=== PATIENT | female | born 2000 | race Caucasian/White ===

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

== ENCOUNTER 2020-04-01 12:42 | Emergency (ER) | payer BC ==
[~2020-04-01] VITALS: Ht 157.4 cm; Wt 123.0 kg
[~2020-04-01 12:42] MED LIST changes: +HYDR-4226 PO; -HYDR-757 PO; +TERB15CR6 TP
--- OUTSIDE RECORDS SUMMARY | 2020-04-01 12:48 | XMS REPORT ---
Author Author Lianne LANDRY S EMY Organization [facility] [address] [address] [facility] [place] Address [address] [place] [address] Care Team Providers Care Wood Lathe Operator Name Role Phone TERI ROSENDO LOFTON Unavailable [phone] PROBLEMS Type Condition ICD9-CM Code MUZ23-LV Code Onset Dates Condition S tatus SNOMED Code Problem Anxiety disorder, unspecified F41.9 Active [id number] Problem Dysthymic disorder F34.1 Active [id number] ALLERGIES No Information ENCOUNTERS Encounter Location Date Diagnosis [facility] [address] [facility] [id number] [address] [place] [address] Sep, Non-recurrent acute suppurat pasha otitis media of left ear with spontaneous rupture of tympanic membrane H66.012 [place] [id number] [place] [address] March, Dysthymic disorder F34.1 and Anxiety dis order, unspecified F41.9 [facility] [address] [facility] [id number] [address] [place] [address] Feb, [place] [id number] [place] [address] Feb, Dysthymic disorder F34.1 and Anxiety dis order, unspecified F41.9 [place] [id number] [place] [address] Feb, Dysthymic disorder F34.1 and Anxiety dis order, unspecified F41.9 [facility] [address] [facility] [place], [place] [id number] Jan, Encounter for immunization Z23 [facility] [address] [facility] [place] [id number] Jan, Skin infection L08.[address] [place] [id number] 13 Dec, 2018 Non-recurrent acute suppurative otitis m edia of right ear without spontaneous rupture of tympanic membrane H66.[address] [place] [id number] 05 Dec, 2018 Paronychia of finger of right hand L03.0 11 [facility] [place] [id number] [place] [address] 17 May, 2018 Right acute serous otitis me rohit, recurrence not specified H65.01 and Seasonal allergic conjunctivitis H10.10 [facility] [place] [id number] [place] [address] 11 May, 2018 Acute mucoid otitis media of left ear H65.[address] [place] [id number] 16 Mar, 2018 Sports physical Z02.5 ; Exercise alcohol and drug counselor ing Z71.89 and Dietary counseling Z71.[address] [place] [id number] Jan, Encounter for immunization Z23 [address] [place] [id number] 15 Dec, 2017 Sprain of calcaneofibular ligament of le ft ankle, initial encounter S93.412A [address] [place] [id number] Jul, Encounter for immunization Z23 [address] [place] [id number] March, Sports physical Z02.5 ; Exercise alcohol and drug counselor ing Z71.89 and Dietary counseling Z71.3 [facility] [address] [id number] [address] [place] [address] 14 Jan, 2017 Body aches R52 and Influenza A J10.[address] [place] [id number] 10 Sep, 2016 Dental examination Z01.20 [facility] [address] [facility] [place] [id number] 08 Sep, 2016 Dental examination Z01.20 [facility] [place] [address] [facility] [place] [id number] 18 Mar, 2016 Sports physical Z02.5 ; Exercise alcohol and drug counselor ing Z71.89 ; Dietary counseling Z71.3 and Obesity due to excess calories, unspecified obesity severity E66.09 [facility] [address] [facility] [place] [id number] 06 Feb, 2016 Encounter for immunization Z23 [address] [address] 09 Jan, 2016 Pain in right knee M25.[address] [address] Jan, 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.[address] [address] 08 Dec, 2015 Weight gain, abnormal R63.[address] [address] 05 Dec, 2015 Migraine with aura and without status mi grainosus, not intractable G43.109 ; Acute upper respiratory infection, unspecified J06.9 ; Other viral agents as the cause of diseases classified elsewhere B97.89 ; Pain in right knee M25.561 ; Obstructive sleep apnea G47.33 and Weight gain, abnormal R63.[address] [address] Sep, Encounter for immunization Z23 [address] [address] Sep, Dysthymic disorder F34.1 and Anxiety dis order, unspecified F41.[address] [address] Sep, Anxiety disorder, unspecified F41.9 and Major depression single episode, 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 [facility] [address] [facility] [place] [id number] Sep, Dental examination Z01.20 [place] [address] [address] Aug, Dysthymic disorder F34.1 and Anxiety dis order, unspecified F41.9 [place] [address] [address] Jul, Dysthymic disorder 300.4 and Anxiety sta te, unspecified 300.[address] [address] Jun, Anxiety state, unspecified 300.00 and De pression, major, recurrent, 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.[address] [address] Jun, Dysthymic disorder 300.4 and Anxiety sta te, unspecified 300.00 [place] [address] [address] May, Anxiety state, unspecified 300.00 and De pression, major, recurrent, 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.35 [place] [address] [address] Apr, Dysthymic disorder 300.4 and Anxiety dis order, unspecified 300.[address] [address] March, Anxiety state, unspecified 300.00 and Mo derate recurrent major depression 296.32 [facility] [place] [address] [facility] [place] [id number] March, Shortness of breath 786.05 [facility] [place] [id number] [place] [id number] March, Routine sports physical exam V70.3 ; Exe rcise counseling V65.41 ; Dietary counseling V65.3 and Shortness of breath 786.05 [facility] [id number] [place] [address] March, Dysthymic disorder 300.4 and Anxiety dis order 300.00 [facility] [id number] [place] [address] Feb, [facility] [id number] [place] [address] Feb, [facility] [id number] [place] [address] Jan, [facility] [id number] [place] [address] Jan, [facility] [id number] [place] [address] Dec, [facility] [id number] [place] [address] Dec, [facility] [id number] [place] [address] Dec, [facility] [id number] [place] [address] Dec, [facility] [id number] [place] [address] Nov, [facility] [id number] [place] [address] Nov, [facility] [id number] [place] [address] Nov, [facility] [id number] [place] [address] Nov, [facility] [id number] [place] [address] Sep, [facility] [id number] [place] [address] Sep, [facility] [id number] [place] [address] Oct, [facility] [id number] [place] [address] Oct, [facility] [id number] [place] [address] Oct, [facility] [id number] [place] [address] Oct, [facility] [id number] [place] [address] Sep, [facility] [id number] [place] [address] Sep, [facility] [address] [address] Sep, [facility] [id number] [place] [address] Sep, [facility] [address] [address] Sep, [facility] [id number] [place] [address] Aug, [facility] [address] [address] Aug, [facility] [id number] [place] [address] Jul, [facility] [id number] [place] [address] Jun, [facility] [id number] [place] [address] March, [facility] [id number] [place] [address] Feb, IMMUNIZATIONS Vaccine Route Administration Date Status PRIVATE EMMANUEL (MEN B) IM Intramuscular February 23, 2019 Adminis tered SOCIAL HISTORY Never Assessed REASON FOR VISIT Emmanuel #2 PLAN OF CARE VITAL SIGNS MEDICATIONS No Known Medications RESULTS No Results PROCEDURES Procedure Date Ordered Result Body Site SINGLE IMMUNIZATION ADMIN February 23, 2019 PRIVATE EMMANUEL (MEN B) February 23, 2019 INSTRUCTIONS MEDICATIONS ADMINISTERED No Known Medications MEDICAL (GENERAL) HISTORY Type Description Date Medical History obesity Medical History fx right tib/fib 2016 Medical History endometriosis Medical History PCOS (Polycystic Ovary Syndrome) Surgical History bladder stretched 2010 Surgical History T & A 2008
--- OUTSIDE RECORDS SUMMARY | 2020-04-01 12:48 | XMS REPORT ---
Author Author Lianne CHAVEZ [facility] Address [address] [place] [address] Care Team Providers Care Decision Support Analyst Name Role Phone SINGH CHAVEZ Unavailable PROBLEMS Type Condition ICD9-CM Code WVT10-AM Code Onset Dates Condition S tatus SNOMED Code Problem Dysthymic disorder F34.1 Active 7 9451209 Problem Missed period N92.6 Active 262814 00 Problem Anxiety disorder, unspecified F41.9 Active 256091335 ALLERGIES No Information ENCOUNTERS Encounter Location Date Diagnosis [facility] [place] [id number] [place] [id number] [place] [address] Jan, Superficial chemical burn of scalp, initial encounter T20.55XA [facility] [address] [place] [id number] [place] [address] Jan, Missed period N92.6 and Acut e otitis externa of right ear, unspecified type H60.501 [place] [address] [place] [id number] [place] [address] Sep, Non-recurrent acute suppurat pasha otitis media of left ear with spontaneous rupture of tympanic membrane H66.012 [facility] [address] [place] [id number] [place] [address] March, Dysthymic disorder F34.1 and Anxiety disorder, unspecified F41.9 [facility] [address] [address] Feb, [facility] [address] [place] [id number] [place] [address] Feb, Dysthymic disorder F34.1 and Anxiety disorder, unspecified F41.9 [place] [address] [place] [address] [address] Feb, Dysthymic disorder F34.1 and Anxiety disorder, unspecified F41.9 [facility] [address] [id number] Jan, Encounter for immunization Z 23 [facility] [address] [id number] Jan, Skin infection L08.9 [facility] [address] [id number] 13 Dec, 2018 Non-recurrent acute suppurat pasha otitis media of right ear without spontaneous rupture of tympanic membrane H66.001 [place] [address] [id number] 05 Dec, 2018 Paronychia of finger of righ t hand L03.011 [facility] WALK IN [facility] [address] [address] 17 May, 2018 Right acute serous otitis me rohit, recurrence not specified H65.01 and Seasonal allergic conjunctivitis H10.10 [facility]ALK [facility] [address] [address] 11 May, 2018 Acute mucoid otitis media of left ear H65.112 [place] [address] [id number] March, Sports physical Z02.5 ; Exer cise counseling Z71.89 and Dietary counseling Z71.3 [place] [address] [id number] Jan, Encounter for immunization Z 23 [facility] [address] [id number] 15 Dec, 2017 Sprain of calcaneofibular li gament of left ankle, initial encounter S93.412A [place] [address] [id number] Jul, Encounter for immunization Z 23 [facility] [id number] [place] [address] [id number] 10 Mar, 2017 Sports physical Z02.5 ; Exer cise counseling Z71.89 and Dietary counseling Z71.3 [facility] [address] [place] [id number] [address] [place] [id number] 14 Jan, 2017 Body aches R52 and Influenza A J10.[address] [place] [address] [id number] [id number] 10 Sep, 2016 Dental examination Z01.20 [facility] [address] [id number] [address] [place] [address] [id number] 08 Sep, 2016 Dental examination Z01.20 [facility] [address] [place] [id number] [place] [address] [id number] 18 Mar, 2016 Sports physical Z02.5 ; Exer cise counseling Z71.89 ; Dietary counseling Z71.3 and Obesity due to excess calories, unspecified obesity severity E66.09 [facility] [address] [place] [id number] [place] [address] [id number] Feb, Encounter for immunization Z 23 [facility] [address] [address] Jan, Pain in right knee M25.561 [place] [address] [address] Jan, 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 [facility] [address] [place] [id number] [place] [id number] 08 Dec, 2015 Weight gain, abnormal R63.5 [facility] [address] [address] 05 Dec, 2015 Migraine with aura and witho ut status migrainosus, not intractable G43.109 ; Acute upper respiratory infection, unspecified J06.9 ; Other viral agents as the cause of diseases classified elsewhere B97.89 ; Pain in right knee M25.561 ; Obstructive sleep apnea G47.33 and Weight gain, abnormal R63.5 [facility] [address] [place] [id number] [address] [place] [id number] 24 Sep, 2015 Encounter for immunization Z 23 [facility] [address] [facility] [id number] [address] [place] [address] Sep, Dysthymic disorder F34.1 and Anxiety disorder, unspecified F41.9 [place] [address] [place] [id number] [address] [place] [address] Sep, Anxiety disorder, unspecifie d F41.9 and Major depression single episode, 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 [facility] [id number] [place] [address] [id number] Sep, Dental examination Z01.20 [place] [address] [place] [id number] [address] [place] [address] Aug, Dysthymic disorder F34.1 and Anxiety disorder, unspecified F41.9 [place] [address] [place] [address] Jul, Dysthymic disorder 300.4 and Anxiety state, unspecified 300.00 [place] [address] [place] [id number] [address] [place] [address] Jun, Anxiety state, unspecified 3 00.00 and Depression, major, recurrent, 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.35 [place] [address] [place] [id number] [address] [place] [address] Jun, Dysthymic disorder 300.4 and Anxiety state, unspecified 300.00 [facility] [address] [place] [id number] [address] [place] [address] May, Anxiety state, unspecified 3 00.00 and Depression, major, recurrent, 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.35 [facility] [address] [place] [id number] [address] [place] [address] Apr, Dysthymic disorder 300.4 and Anxiety disorder, unspecified 300.00 [facility] [address] [place] [id number] [address] [place] [address] March, Anxiety state, unspecified 3 00.00 and Moderate recurrent major depression 296.32 [facility] [address] [id number] [place] [address] [id number] March, Shortness of breath 786.05 [facility] [address] [id number] [place] [address] [id number] March, Routine sports physical exam V70.3 ; Exercise counseling V65.41 ; Dietary counseling V65.3 and Shortness of breath 786.05 [facility] [address] [id number] [address] [place] [address] March, Dysthymic disorder 300.4 and Anxiety disorder 300.00 [facility] [address] [id number] [address] [place] [address] Feb, [facility] [address] [facility] [id number] [address] [place] [id number] Feb, [facility] [address] [id number] [address] [place] [address] Jan, [facility] [address] [id number] [address] [place] [address] Jan, [facility] [address] [facility] [id number] [address] [place] [address] Dec, [facility] [address] [facility] [id number] [address] [place] [address] Dec, [facility] [address] [facility] [id number] [address] [place] [phone] Dec, [facility] [address] [id number] [address] [place] [phone] Dec, [facility] [address] [facility] [id number] [address] [place] [address] Nov, [facility] [address] [facility] [id number] [address] [place] [phone] Nov, [facility] [address] [id number] [address] [place] [address], [place] [address] Nov, [facility] [address] [id number] [address] [place] [address], [place] [address] Nov, [facility] [address] [id number] [address] [place] [address], [place] [address] Sep, [facility] [address] [id number] [address] [place] [address], [place] [address] Sep, [facility] [address] [id number] [address] [place] [address], [place] [address] Oct, [facility] [address] [id number] [address] [place] [address], [place] [address] Oct, [facility] [address] [id number] [address] [place] [address], [place] [address] Oct, [facility] [address] [id number] [address] [place] [address], [place] [address] Oct, [facility] [address] [id number] [address] [place] [address], [place] [address] Sep, [facility] [address] [id number] [address] [place] [address], [place] [address] 18 Sep, 2013 [facility] [address] [id number] [address] [place] [address], [place] [address] 16 Sep, 2013 [facility] [address] [id number] [address] [place] [phone] 15 Sep, 2013 [facility] [address] [id number] [address] [place] [address], [place] [address] 15 Sep, 2013 [facility] [address] [id number] [address] [place] [address], [place] [address] Aug, [facility] [address] [id number] [address] [place] [address], [place] [address] Aug, [facility] [address] [id number] [address] [place] [address] Jul, [facility] [address] [facility] [id number] [address] [place] [phone] Jun, [facility] [address] [facility] [id number] [address] [place] [address] March, [facility] [address] [facility] [id number] [address] [place] [address] Feb, IMMUNIZATIONS No Known Immunizations SOCIAL HISTORY Never Assessed REASON FOR VISIT PLAN OF CARE VITAL SIGNS MEDICATIONS Unknown Medications RESULTS No Results PROCEDURES Procedure Date Ordered Result Body Site PSYTX PT&/FAMILY 45 MINUTES Jan 10, 2015 INSTRUCTIONS MEDICATIONS ADMINISTERED No Known Medications MEDICAL (GENERAL) HISTORY Type Description Date Medical History obesity Medical History fx right tib/fib 2016 Medical History endometriosis Medical History PCOS (Polycystic Ovary Syndrome) Surgical History bladder stretched 2010 Surgical History T & A 2008
--- OUTSIDE RECORDS SUMMARY | 2020-04-01 12:48 | XMS REPORT ---
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 Role Phone Migration, Doctor Unavailable Unavailable PROBLEMS Type Condition ICD9-CM Code GIQ94-YC Code Onset Dates Condition S tatus SNOMED Code Problem Dysthymic disorder F34.1 Active 7 8849878 Problem Missed period N92.6 Active 754420 00 Problem Anxiety disorder, unspecified F41.9 Active 342879565 ALLERGIES No Information ENCOUNTERS Encounter Location Date Diagnosis [facility] [address] [address] Jan, Superficial chemical burn of scalp, initial encounter T20.55XA [facility] IN [facility] [address] [place] [id number] [place] [address] Jan, Missed period N92.6 and Acut e otitis externa of right ear, unspecified type H60.501 [facility] [address] [address] Sep, Non-recurrent acute suppurat pasha otitis media of left ear with spontaneous rupture of tympanic membrane H66.012 [place] [address] [place] [id number] [place] [address] March, Dysthymic disorder F34.1 and Anxiety disorder, unspecified F41.9 [facility] IN [facility] [address] [place] [id number] [place] [address] Feb, [facility] [address] [address] Feb, Dysthymic disorder F34.1 and Anxiety disorder, unspecified F41.9 [facility] [address] [place] [id number] [place] [address] Feb, Dysthymic disorder F34.1 and Anxiety disorder, unspecified F41.9 [facility] [address] [facility] [id number] [place] [address] [id number] Jan, Encounter for immunization Z 23 [facility] [address] [facility] [id number] [place] [address] [id number] Jan, Skin infection L08.9 [facility] [address] [facility] [id number] [place] [address] [id number] 13 Dec, 2018 Non-recurrent acute suppurat pasha otitis media of right ear without spontaneous rupture of tympanic membrane H66.001 [facility] [address] [facility] [id number] [place] [address] [id number] 05 Dec, 2018 Paronychia of finger of righ t hand L03.011 [facility] [address] [facility] [id number] [place] [address] 17 May, 2018 Right acute serous otitis me rohit, recurrence not specified H65.01 and Seasonal allergic conjunctivitis H10.10 [facility] [address] [facility] [id number] [place] [address] 11 May, 2018 Acute mucoid otitis media of left ear H65.112 [facility] [address] [place] [id number] [place] [address] [id number] 16 Mar, 2018 Sports physical Z02.5 ; Exer cise counseling Z71.89 and Dietary counseling Z71.3 [facility] [address] [place] [id number] [place] [address] [id number] Jan, Encounter for immunization Z 23 [facility] [place] [facility] [address] [facility] [id number] [place] [address] [id number] 15 Dec, 2017 Sprain of calcaneofibular li gament of left ankle, initial encounter S93.412A [facility] [place] [facility] [address] [place] [id number] [place] [address] [id number] 06 Jul, 2017 Encounter for immunization Z 23 [facility] [address] [facility] [id number] [place] [address] [id number] March, Sports physical Z02.5 ; Exer cise counseling Z71.89 and Dietary counseling Z71.3 [facility] [address] [facility] [id number] [address] [place] [id number] 14 Jan, 2017 Body aches R52 and Influenza A J10.1 [facility] [place] [address] [id number] [id number] 10 Sep, 2016 Dental examination Z01.20 [facility] [address] [id number] [place] [id number] 08 Sep, 2016 Dental examination Z01.20 [facility] [address] [facility] [id number] [place] [id number] 18 Mar, 2016 Sports physical Z02.5 ; Exer cise counseling Z71.89 ; Dietary counseling Z71.3 and Obesity due to excess calories, unspecified obesity severity E66.09 [facility] [address] [place] [id number] [place] [address] [id number] Feb, Encounter for immunization Z 23 [facility] [address] [place] [id number] [place] [address] 09 Jan, 2016 Pain in right knee M25.561 [place] [address] [address] 03 Jan, 2016 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 [facility] [address] [place] [id number] [place] [address] 08 Dec, 2015 Weight gain, abnormal R63.5 [facility] [address] [place] [id number] [place] [address] 05 Dec, 2015 Migraine with aura and witho ut status migrainosus, not intractable G43.109 ; Acute upper respiratory infection, unspecified J06.9 ; Other viral agents as the cause of diseases classified elsewhere B97.89 ; Pain in right knee M25.561 ; Obstructive sleep apnea G47.33 and Weight gain, abnormal R63.5 [facility] [address] [place] [address] Sep, Encounter for immunization Z 23 [facility] [address] [facility] [id number] [address] [place] [id number] 18 Sep, 2015 Dysthymic disorder F34.1 and Anxiety disorder, unspecified F41.9 [facility] [address] [facility] [id number] [address] [place] [id number] Sep, Anxiety disorder, unspecifie d F41.9 and Major depression single episode, 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 [facility] [address] [place] [id number] [address] [place] [address] [id number] Sep, Dental examination Z01.20 [facility] [address] [place] [id number] [address] [place] [address] Aug, Dysthymic disorder F34.1 and Anxiety disorder, unspecified F41.9 [facility] [address] [place] [id number] [address] [place] [id number] Jul, Dysthymic disorder 300.4 and Anxiety state, unspecified 300.00 [facility] [address] [place] [id number] [address] [place] [id number] Jun, Anxiety state, unspecified 3 00.00 and Depression, major, recurrent, 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.35 [facility] [address] [place] [id number] [address] [place] [address] Jun, Dysthymic disorder 300.4 and Anxiety state, unspecified 300.00 [facility] [address] [place] [id number] [address] [place] [id number] May, Anxiety state, unspecified 3 00.00 and Depression, major, recurrent, 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.35 [facility] [address] [place] [id number] [address] [place] [address] Apr, Dysthymic disorder 300.4 and Anxiety disorder, unspecified 300.00 [facility] [address] [place] [id number] [address] [place] [address] March, Anxiety state, unspecified 3 00.00 and Moderate recurrent major depression 296.32 [facility] [address] [facility] [id number] [place] [address] [id number] March, Shortness of breath 786.05 [facility] [address] [facility] [id number] [place] [address] [id number] March, Routine sports physical exam V70.3 ; Exercise counseling V65.41 ; Dietary counseling V65.3 and Shortness of breath 786.05 [facility] [address] [id number] [address] [place] [id number] March, Dysthymic disorder 300.4 and Anxiety disorder 300.00 [facility] [address] [facility] [id number] [address] [place] [address] Feb, [facility] [address] [facility] [id number] [address] [place] [id number] Feb, [facility] [address] [facility] [id number] [address] [place] [id number] Jan, [facility] [address] [facility] [id number] [address] [place] [phone] Jan, [facility] [address] [facility] [id number] [address] [place] [id number] Dec, [facility] [address] [facility] [id number] [address] [place] [id number] Dec, [facility] [address] [facility] [id number] [address] [place] [id number] Dec, [facility] [address] [facility] [id number] [address] [place] [phone] Dec, [facility] [address] [facility] [id number] [address] [place] [id number] Nov, [facility] [address] [facility] [id number] [address] [place] [id number] Nov, [facility] [address] [facility] [id number] [address] [place] [phone] Nov, [facility] [address] [id number] [address] [place] [address], [place] [address] 14 Nov, 2014 [facility] [address] [id number] [address] [place] [address], [place] [address] Sep, [facility] [address] [id number] [address] [place] [address], [place] [address] Sep, [facility] [address] [id number] [address] [place] [address], [place] [address] Oct, [facility] [address] [id number] [address] [place] [address], [place] [address] 30 Oct, 2013 [facility] [address] [id number] [address] [place] [address], [place] [address] Oct, [facility] [address] [id number] [address] [place] [address], [place] [address] Oct, [facility] [address] [id number] [address] [place] [address], [place] [address] 18 Sep, 2013 [facility] [address] [id number] [address] [place] [address], [place] [address] 18 Sep, 2013 [facility] [address] [id number] [address] [place] [address], [place] [address] 16 Sep, 2013 [facility] [address] [id number] [address] [place] [address], [place] [address] 15 Sep, 2013 [facility] [address] [id number] [address] [place] [address], [place] [address] 15 Sep, 2013 [facility] [address] [id number] [address] [place] [address], [place] [address] Aug, [facility] [address] [id number] [address] [place] [address], [place] [address] Aug, [facility] [address] [id number] [address] [place] [address], [place] [address] 26 Jul, 2013 [facility] [address] [id number] [address] [place] [id number] Jun, [facility] [address] [facility] [id number] [address] [place] [phone] March, [facility] [address] [facility] [id number] [address] [place] [id number] Feb, IMMUNIZATIONS No Known Immunizations SOCIAL HISTORY Never Assessed REASON FOR VISIT PLAN OF CARE VITAL SIGNS MEDICATIONS Unknown Medications RESULTS No Results PROCEDURES No Known procedures INSTRUCTIONS MEDICATIONS ADMINISTERED No Known Medications MEDICAL (GENERAL) HISTORY Type Description Date Medical History obesity Medical History fx right tib/fib 2016 Medical History endometriosis Medical History PCOS (Polycystic Ovary Syndrome) Surgical History bladder stretched 2010 Surgical History T & A 2008
--- OUTSIDE RECORDS SUMMARY | 2020-04-01 12:48 | XMS REPORT ---
Author Author [employer]. Organization [employer]. Address [address] [address] Care Team Providers Care Reptile Farmer Name Role Phone NONI MAI Unavailable Unavailable DOUGLAS WEINER Unavailable Unavailable MATIAS BRANDON Unavailable Unavailable RAJOTTE, LUZ Unavailable Unavailable BOEKHOUT, SINGH Unavailable Unavailable WILLIAMS LAY Unavailable Unavailable TRENTON COLLINS Unavailable Unavailable TRACE MAYORGA Unavailable Unavailable [facility] Unavailable [facility] Unavailable [phone] IVANIA GARNICA Unavailable MALATHI SOLIS Unavailable RAJOTTE, LUZ Unavailable RAJOTTE, LUZ Unavailable zzRAJOTTE, LUZ Unavailable zzRAJOTTE, LUZ Unavailable zzRAJOTTE, LUZ Unavailable TWILA JAIMA Unavailable TWILA JAIMA Unavailable Migration, Doctor Unavailable Unavailable PCP, OUTSIDE Unavailable Unavailable Migration, Doctor Unavailable Unavailable BOEKHMICKY, SINGH Unavailable BOEKHOUT, SINGH Unavailable [facility] Unavailable [facility] CCM Unavailable BOEKHOUT, SINGH Unavailable BOEKHOUT, SINGH Unavailable DEGRAFFENREID ROSENDO [place] Unavailable Unavailable Unavailable Migration, Doctor Unavailable Unavailable BOEKHOUT, SINGH Unavailable Allergies Normalized Allergy Reported Date of Reaction(s) Care Provider Facility Allergy Type classification allergen Allergy Onset DA (2 Unclassified No Known Drug 06-10-2010 - no information JEANNE RODRIGUEZ Not Available sources.) Allergies (74226) Medications Medication Ingredient Drug Dose Dates Status Sig Sig Care Class(es) (Normalized) (Original) Provid er amoxicillin amoxicillin Penicillin- 1000 06-09-20 Active no Amoxicillin no 500 mg oral Translation class mg 18 - information 500 mg name capsule (1 s: [ Antibacteri 06-14-20 Orally every (no source.) Amoxicillin al 18 8 hrs 2 phone) 500 mg] capsules 8h May, May, 05 days Active amoxicillin amoxicillin Penicillin- 06-15-20 Active no Augme ntin no 875 mg / / class 18 - information 875-125 MG name clavulanate clavulanate Antibacteri 06-22-20 Orally every (n o 125 mg oral Translation al 18 12 hrs 1 phone) tablet (1 s: [ tablet 12h source.) Augmentin May, 875-125 MG] May, 07 days Active cetirizine cetirizine Histamine-1 10 mg 06-15-20 Active no Cetirizine no hydrochlori Translation Receptor 18 - information HCl 10 mg name de 10 mg s: [ Antagonist 07-15-20 Orally Once (no oral tablet Cetirizine 18 a day 1 phone) (1 source.) HCl 10 mg] tablet 24h May, Jun, 30 day(s) Active fluticasone fluticasone Corticoster 1 06-15-20 Active take 1 Fluticasone no propionate Translation oid spray( 18 spray(s) Propionate name 0.05 s: [ s) nasal route 50 MCG/ACT (no mg/actuat Fluticasone once daily Nasally Once phone) metered Propionate a day 1 dose nasal 50 MCG/ACT] spray in spray (1 each nostril source.) 24h May, 30 day(s) Active ketotifen ketotifen Histamine-1 1 06-15-20 Active take 1 Ke totifen no 0.25 mg/ml Translation Receptor drop(s 18 drop(s) into Fumara te name ophthalmic s: [ Inhibitor ) the eye(s) 0.025 % (no solution (1 Ketotifen twice daily Ophthalmic phone) source.) Fumarate Twice a day 0.025 %] 1 drop into affected eye 12h May, 07 days Active mupirocin Mupirocin RNA 2 % 07-26-20 Active no Bactrob an 2 no 0.02 mg/mg Translation Synthetase 13 information % 1 arnulfo by name nasal s: [ Inhibitor Topical (no ointment (1 Bactroban 2 Antibacteri route 2 phone) source.) %] al times per day for 14 day(s) apply to skin lesion Jun, Active Problems Active Problems Problem Normalized Date of Normalized Normalized Provider Fac ility Classification Problem(s) Problem Problem Problem Sta tus Onset/Resoluti Duration on Other female Abnormal Chronic Active BRANDAN CHARLES , Not A vailable genital uterine and MD (77388) disorders (1 vaginal source.) bleeding, unspecified Other Abnormal Episodic Active [facility] nutritional; weight gain [address]1172 [facility] endocrine; and Translations: of [facility] metabolic [ - Weight [place] () disorders (20 gain, abnormal sources.) R63.5, - Weight gain, abnormal R63.5] Otitis media Acute and Episodic Active LUZ Community and related subacute [facility] conditions (20 allergic 65453 of [facility] sources.) otitis media [place] () (mucoid) (sanguinous) (serous), left ear Translations: [ - Acute mucoid otitis media of left ear H65.112, - Right acute serous otitis media, recurrence not specified H65.01, - Acute mucoid otitis media of left ear H65.112, - Right acute serous otitis media, recurrence not specified H65.01, - Non-recurrent acute suppurative otitis media of right ear without spontaneous rupture of tympanic membrane H66.001, - Non-recurrent acute suppurative otitis media of left ear with spontaneous rupture of tympanic membrane H66.012] Inflammation, Acute atopic Episodic Active LUZ Commu nity infection of conjunctivitis [facility] eye (12 , unspecified [address] of [facility] sources.) eye [place] () Translations: [ - Seasonal allergic conjunctivitis H10.10, - Seasonal allergic conjunctivitis H10.10] [place] (2 Corrosion of Episodic Active Doctor Community sources.) first degree [facility] of scalp [any of [place] part], initial [place] () encounter Translations: [ - Superficial chemical burn of scalp, initial encounter T20.55XA] Other Other obesity Chronic Active EARL [facility] Commu nity nutritional; due to excess [address]5787 [facility] endocrine; and calories of [facility] metabolic Translations: [place] ([address]54) disorders (11 [ - Obesity sources.) due to excess calories, unspecified obesity severity E66.09, - Obesity due to excess calories, unspecified obesity severity E66.09] Residual Pain, Episodic Active ROSENDO Community codes; unspecified DEGRAFFENREID [facility] unclassified Translations: [place] [address] of [facility] (3 sources.) [ - Body aches [place] (11134) R52] Menstrual Secondary Chronic Active BRANDAN CHARLES , Not Carmen ilable disorders (6 oligomenorrhea (68438) sources.) Translations: [ PRIMARY DYSMENORRHEA, Missed period, Missed period, - Missed period N92.6] Other ear and Unspecified Episodic Active Doctor Commun ity sense organ acute [facility] disorders (2 noninfective of [facility] sources.) otitis [place] () externa, right ear Translations: [ - Acute otitis externa of right ear, unspecified type H60.501] Past or Other Problems Problem Normalized Date of Normalized Normalized Provider Fac ility Classification Problem(s) Problem Problem Problem Sta tus Onset/Resoluti Duration on External Activity, no information no information JUSTIN WISEMAN Not Available Injury - walking, (27970) Unspecified (1 marching and source.) hiking Translations: [ OTHER EXTERNAL CAUSE STATUS] Residual Hypersomnia, no information no information JEANNE MAS IS Not Available codes; unspecified (57070) unclassified (1 source.) External Slipping, no information no information JUSTIN WISEMAN Not Available Injury - tripping and (24374) Overexertion stumbling (1 source.) without falling due to stepping into hole or opening, initial encounter Other lower Snoring Episodic Completed JEANNE RODRIGUEZ Not Avai lable respiratory (09031) disease (1 source.) Procedures Procedure Normalized Procedure Procedure Result Performer Facility Date 02-21-2015 Psychotherapy no information no name (no phone) Co [facility] w/patient 45 minutes [facility] (32311) 01-23-2015 Psychotherapy no information no name (no phone) Co [facility] w/patient 45 minutes [facility] (62209) 01-10-2015 Psychotherapy no information no name (no phone) Co [facility] w/patient 45 minutes [facility] (51963) 12-13-2014 Psychotherapy no information no name (no phone) Co [facility] w/patient 45 minutes [facility] (65965) 04-14-2018 Screening test visual no information no name (no ph one) [facility] acuity quantitative [facility] (87632) Immunizations Normalized Immunization Date Notes Care Provider Facili ty Immunization hepatitis A vaccine, 02-03-2018 - no information LUZ Curry TE [facility] pediatric/adolescent 02-03-[id number] [address] dosage, 2 dose [place] (64446) schedule meningococcal B 02-23-2019 - no information no name [facility] vaccine, 02-23-2019 [facility] recombinant, OMV, [facility] adjuvanted (47538) meningococcal B 02-03-2018 - no information LU[facility], 02-03-[id number] [place] [address] recombinant, OMV, [place] (17069) adjuvanted no information 02-23-2019 no information ROSENDO WILLIAMSON [facility] [place] [address] [facility] (19940) no information 02-03-2018 no information LUZ zzRAJOTTE Com [facility] [address] [facility] (35217) no information 02-03-2018 no information LUZ zzRAJOTTE Com [facility] [id number] [place] [address] ([address]324) Results Test Name Value Interpretation Reference Range Date Time Fa cility (Normalized) (Normalized) (Medline Reference) No panel information on 2020-02-17 Exp date +~2021-09 (no code) [facility] (83010) Lot # [id number] (no code) [facility] (45874) RESULTS no information (no code) [facility] (28744) Vital Signs Vital Sign Value Interpretation Reference Date Time Care Prov ider Facility (Normalized) (Normalized) Range BMI (Body Mass 36.92 kg/m2 (no code) 15 - 25 kg/m2 06-15-2018 [facility] Community Index) 16:20-0400 [address] [facility] (11488) BMI (Body Mass 36.54 kg/m2 (no code) 15 - 25 kg/m2 06-09-2018 [facility] Community Index) 13:15-[address] [place] [address] (45353) BMI (Body Mass 37.22 kg/m2 (no code) 15 - 25 kg/m2 04-14-2018 CH [facility] Community Index) 14:30-[address] ([address]) BMI (Body Mass 37.22 kg/m2 (no code) 15 - 25 kg/m2 01-14-2018 [facility] Community Index) 09:15-[address] ([address]) Body 97.7 [degF] (no code) 97.8 - 99.0 06-15-2018 [facility] Temperature [degF] 16:20-[address] [place] [address] (13732) Body 97.8 [degF] (no code) 97.8 - 99.0 06-09-2018 [facility] Temperature [degF] 13:15-[address] [place] [address] (34015) Body 98.8 [degF] (no code) 97.8 - 99.0 04-14-2018 LUZ Community Temperature [degF] 14:30-[address] ([address]) Body 98 [degF] (no code) 97.8 - 99.0 01-14-2018 LUZ Nm mmunity Temperature [degF] 09:15-[address] ([address]) Height 154.94 cm (no code) cm 06-15-2018 EALR [place] C ommunity 16:20-[address] [place] [address] (49426) Height 154.94 cm (no code) cm 06-09-2018 EARL Hammer ommunity 13:150400 [address] [place] [address] (92503) Height 154.94 cm (no code) cm 04-14-2018 LUZ Commu nity 14:300400 [address] (68588) Height 154.94 cm (no code) cm 01-14-2018 LUZ Commu nity 09:150500 [address] (75451) Weight 88.63 kg (no code) kg 06-15-2018 EARL MATTSON Co mmunity 16:20-[address] [place] [address] (42544) Weight 87.73 kg (no code) kg 06-09-2018 EARL MATTSON Co mmunity 13:150400 [address] [place] [address] (99660) Weight 89.36 kg (no code) kg 04-14-2018 LUZ Commun ity 14:300400 [address] (10047) Weight 89.36 kg (no code) kg 01-14-2018 LUZ Commun ity 09:150500 [address] ([address]) Interventions No Information Plan of Treatment The data below is from unstructured sources Discharge Date 02/29/16 7:00am Prescriptions See Medication Section Discharge Date 03/16/16 6:00pm Disposition 01 HOME, SELF-CARE Condition at Discharge Improved Instructions/Education Provided Ankl e Fracture in Children (DC) Forms Provided Work Release Form Prescriptions See Medication Section Referrals [facility] - Primary Care Physician [facility] - Primary Care Physician SAJI COREY MD - KAYLENE,JULIA Rojas MD - ESTER,DEA Betts MD - LINK,MEERA Quiñones DO - MEHDI,ARMIDA Anderson MD - Additional Instructions/Education 1. Return to ER for any concerns 2. Follow up with one of the orthopedic surgeons listed. Call her office tomorrow to make an appointment to be seen within the next 2 weeks. 3. Use the crutches when walking until o therwise directed by orthopedics Discharge Date 07/28/17 9:38pm Disposition 01 HOME, SELF-CARE Condition at Discharge Improved Instructions/Education Provided Oute r Ear Infection (DC) Prescriptions See Medication Section Referrals IVANIA GARNICA DO Order Date: Primary Care Physician Address: [address] [place] [id number] Additional Instructions/Education Al l discharge instructions reviewed with patient and/or family. Voiced understanding. Medications as instructed. Tylenol and ibuprofen [id number] as directed based on weight/age for pain. Avoid getting water in the ears. Wash all bedding. Avoid letting your dogs sleep on your pillow or bedding. Follow-up with your family practitioner for recheck as outpatient if needed. Return to the emergency department for worsened symptoms or any other concerns. Activity Details Follow Up prn Reason: Activity Details Follow Up 1 Year Reason: Activity Details Follow Up 6 Months Reason: Activity Details Follow Up 1 Week Reason: Activity Details Follow Up 4 Weeks Reason: Activity Details Follow Up 1 Week, prn Reason:if symp toms worsen or not improving Goals No Information Social History The data below is from unstructured sourcesNo Social History data Functional Status The data below is from unstructured sourcesNo functional status results.No functional status results.No functional status results.No functional status results.No functional status results.No functional status information available.No functional status information available.No Functional Status dataNo Functional Status data Mental Status No Information Encounters Encounter Normalized Encounter Encounter Diagnosis Care Provi sierra Organization Date Type 02-02-2019 (ACUTE) Acute Visit Local infection of the ROSENDO DE GRAFFENREID [facility] - skin and subcutaneous [place] (no phone) [facility] (no phone) 02-02-2019 tissue, unspecified - 02-02-2019 01-12-2019 (ACUTE) Acute Visit Acute suppurative ROSENDO DEGRAFF ENREID [facility] - otitis media without [place] (no phone) [facility] (no phone) 01-12-2019 spontaneous rupture of - ear drum, right ear 01-12-2019 01-04-2019 (ACUTE) Acute Visit Cellulitis of right ROSENDO DEGRA FFENREID [facility] - finger [place] (no phone) [facility] (n o phone) 01-04-2019 - 01-04-2019 03-31-2019 (BH-FU-40) Behavioral Dysthymic disorder SAYRA DUNNE (no [facility] F/u 40 min phone) (no phone) 03-31-2019 - 03-31-2019 03-14-2019 (-FU-40) Behavioral Dysthymic disorder SAYRA WREN LY (no [facility] F/u 40 min phone) (no phone) 03-14-2019 - 03-14-2019 02-28-2019 (BH-INTAKE) Behavioral Dysthymic disorder SAYRA PUCKETTY (no [facility] Intake phone) (no phone) 02-28-2019 - 02-28-2019 02-23-2019 (imm/inj) Encounter for ROSENDO WILLIAMSON [facility] - Immunization/injection immunization [place] (no phone ) [facility] (no phone) 02-23-2019 - 02-23-2019 06-15-2018 (WALK-IN) Walk-In Care Acute serous otitis EARL WILKINS (no [facility] - media, right ear phone) EARL Yang CARE ( no phone) 06-15-2018 (no phone) - 06-15-2018 02-27-2020 [facility] Corrosion of first CHELA BERNO T (no [facility] - CARE degree of scalp [any phone) CARE (no phone) 02-27-2020 part], initial - encounter 02-27-2020 02-17-2020 [facility] Irregular NAVDEEP CLARKE (no [facility] - CARE menstruation, phone) CARE (no nohemi ne) 02-17-2020 unspecified - 02-17-2020 10-25-2019 [facility] Acute suppurative CHELA BERNOT (no [facility] - CARE otitis media with phone) CARE (no phone) 10-25-2019 spontaneous rupture of - ear drum, left ear 10-25-2019 06-09-2018 [facility] Acute and subacute EARL MATTSON (no [facility] - CARE allergic otitis media phone) EARL WILKINS CARE (no phone) 06-09-2018 (mucoid) (sanguinous) (no phone) - (serous), left ear 06-09-2018 04-14-2018 [facility] Encounter for LUZ Iqbal (no [facility] - [facility] examination for phone) [facility] (no phone) 04-14-2018 participation in sport - 04-14-2018 03-14-2019 Nursing evaluation of no information AMAN SHEIKH (no phone) [facility] - patient and report CARE (no phone) 03-14-2019 - 03-14-2019 06-15-2018 Patient encounter no information no name (no phone) no organization name (no phone) Patient encounter no information no name (no phone) no organ ization name (no phone) 02-17-2020 Patient encounter no information (no phone) [facility] (no phone) 03-31-2019 Patient encounter no information no name (no phone) no organization name procedure (no phone) 03-14-2019 Patient encounter no information no name (no phone) no organization name procedure (no phone) 03-14-2019 Patient encounter no information no name (no phone) no organization name procedure (no phone) 02-28-2019 Patient encounter no information no name (no phone) no organization name procedure (no phone) 02-02-2019 Patient encounter no information no name (no phone) no organization name procedure (no phone) 01-12-2019 Patient encounter no information no name (no phone) no organization name procedure (no phone) 01-04-2019 Patient encounter no information no name (no phone) no organization name procedure (no phone) 04-07-2017 Patient encounter no information no name (no phone) no organization name procedure (no phone) no information Encounter for dental no name (no phone) no or ganization name examination and (no phone) cleaning without abnormal findings Medical Equipment No Information Payers No Information History general Narrative - Reported Note Type Note Facility History general Narrative - Reported Type Medical obesity History Medical fx right tib/fib 2015 History Medical endometriosis History Medical PCOS (Polycystic Ovary Synd joaquina) History Surgical bladder stretched 2010 History Surgical T & A 2008 History [facility] ([id number]) Summary Purpose eClinicalWorks SubmissioneClinicalWorks SubmissioneClinicalWorks SubmissioneClinicalWorks SubmissioneClinicalWorks SubmissioneClinicalWorks SubmissioneClinicalWorks SubmissioneClinicalWorks SubmissioneClinicalWorks SubmissioneClinicalWorks SubmissioneClinicalWorks SubmissioneClinicalWorks SubmissionInterface Exchange Advance Directives Directive Response Recor ded Date/Time Advance Directives No 9:37pm Health Care Power of Cement Truck Loader No 10/16/14 9:37pm Organ Donor No 10/16/14 9:37pm Directive Response Recor ded Date/Time Advance Directives No 4:24pm Health Care Power of Cement Truck Loader No 03/16/16 4:24pm Organ Donor No 03/16/16 4:24pm Resuscitation Status Full Code 03/16/16 4:24pm Directive Response Recor ded Date/Time Advance Directives No 9:37pm Health Care Power of Cement Truck Loader No 10/16/14 9:37pm Organ Donor No 10/16/14 9:37pm Resuscitation Status Full Code 10/16/14 9:37pm Directive Response Recor ded Date/Time Advance Directives No 7:28pm Health Care Power of Cement Truck Loader No 07/28/17 7:28pm Organ Donor No 07/28/17 7:28pm Resuscitation Status Full Code 07/28/17 7:28pm Discharge Instructions No hospital discharge instructions.No hospital discharge instructions.No hospital discharge instructions.No hospital discharge instruction information available. Family History Family History data not found Assessments Condition Codes Effectiv e Dates Nail bed infection ICD-9: 681.9 03/08/2012 IMPAIRED FASTING GLUCOSE ICD-9: 790.21 06/05/2011 URGE INCONTINENCE ICD-9: 788.31 06/05/2011 ABNORMAL WEIGHT GAIN ICD-9: 783.1 06/05/2011 NOCTURNAL ENURESIS ICD-9: 788.36 06/05/2011 TONSILLITIS, ACUTE ICD-9: 463 03/28/2010 DYSPEPSIA ICD-9: 536.8 0 02/11/2010 Chief Complaint Reason For Visit Effective Dates Notes ~generic 03/08/2012 ingr own toenail urinary incontinence 06/05/2011 still waiting to hear back from Andrea Cai weight gain/obesity 12/03/2010 weight gain/obesity 05/22/2010 last wgt 95lbs on 03/28/10 sore throat 03/28/2010 follow up 02/11/2010 3mo fwup/doing LDL Technology diet Review of System System Result Effective Dates Dermatologic cellulitis 03/08/2012 Dermatologic onychodystrophy 03/08/2012 Constitutional weight gain/obesity 06/05/2011 Genitourinary/Nephrology urinary inc ontinence 06/05/2011 Endocrine hyperglycemia 12/03/2010 Constitutional weight gain/obesity 12/03/2010 Constitutional weight gain/obesity 05/22/2010 Constitutional No fever 03/28/2010 Ears/Nose/Throat/Neck sore throat 03/28/2010 Ears/Nose/Throat/Neck tonsillitis 03/28/2010 Ears/Nose/Throat/Neck No otalgia 03/28/2010 Respiratory No cough Respiratory No stridor 0 03/28/2010 Respiratory No wheezing 03/28/2010 Gastrointestinal No diarrhea 03/28/2010 Gastrointestinal No vomiting 03/28/2010 Gastrointestinal No constipation 03/28/2010 Dermatologic No rash Dermatologic No sores Constitutional weight gain/obesity 02/11/2010 Endocrine obesity 2009 Physical Exam Exam Name System Name It em Name Status Result Effective Dates Notes Full Exam - General Musculoskeletal digits and nails Nails: paronychia 03/08/2012 rt great toe lateral edge of nail/bed is infected Full Exam - General Constitutional general appearance Nourishment: obese 03/08/2012 None Full Exam - General Constitutional general appearance Hygiene/Attention to Grooming: poor hygiene 03/08/2012 feet are dirty with caked dirt and residual nail tuvaluan on toe nails. Full Exam - General Respiratory respiratory effort/rhythm Overall: normal rate 03/08/2012 None Full Exam - General Respiratory respiratory effort/rhythm Overall: no retractions 03/08/2012 None Full Exam - General Neurologic mental status Overall: alert 2 None Full Exam - General Neurologic mental status Overall: oriented 03/08/2012 None Full Exam - General Psychiatric mood and affect Overall: normal mood and affect 03/08/2012 None Full Exam - General Abdomen abdominal exam Overall: no tenderness 06/05/2011 None Full Exam - General Abdomen abdominal exam Overall: normal bowel sounds 06/05/2011 None Full Exam - General Abdomen abdominal exam Overall: soft 06/05/2011 None Full Exam - General Respiratory auscultation Overall: breath sounds clear bilater ally 06/05/2011 None Full Exam - General Respiratory auscultation Left upper lung field: a normal exam 06/05/2011 None Full Exam - General Respiratory auscultation Diffuse: a normal exam 06/05/2011 None Full Exam - General Cardiovascular auscultation of heart Overall: no murmurs 06/05/2011 None Full Exam - General Cardiovascular auscultation of heart Overall: regular rate 06/05/2011 None Full Exam - General Cardiovascular auscultation of heart Overall: normal heart sounds 06/05/2011 None Full Exam - General Cardiovascular auscultation of heart S1: a normal exam 06/05/2011 None Full Exam - General Cardiovascular auscultation of heart S2: a normal exam 06/05/2011 None Full Exam - General Cardiovascular auscultation of heart Rhythm: regular rhythm 06/05/2011 None Full Exam - General Cardiovascular auscultation of heart Rate: regular rate 06/05/2011 None Full Exam - General Cardiovascular auscultation of heart S3 (ventricular gallop): present 06/05/2011 None Full Exam - General Cardiovascular extremities Overall: no clubbing 06/05/2011 None Full Exam - General Cardiovascular extremities Overall: No edema 06/05/2011 None Full Exam - General Cardiovascular extremities Overall: No cyanosis 06/05/2011 None Full Exam - General Abdomen abdominal exam Overall: no masses 06/05/2011 None Full Exam - General Constitutional general appearance Overall: in no acute distress 06/05/2011 None Full Exam - General Constitutional general appearance Overall: well developed 06/05/2011 None Full Exam - General Constitutional general appearance Overall: well nourished 06/05/2011 None Full Exam - General Neurologic mental status Overall: alert 1 None Full Exam - General Neurologic mental status Overall: oriented 06/05/2011 None Full Exam - General Psychiatric mood and affect Overall: normal mood and affect 06/05/2011 None Full Exam - General Respiratory auscultation Right upper lung field: a normal exa m 06/05/2011 None Full Exam - General Respiratory auscultation Right middle lung field: a normal ex am 06/05/2011 None Full Exam - General Respiratory auscultation Right lower lung field: a normal exa m 06/05/2011 None Full Exam - General Respiratory auscultation Left lower lung field: a normal exam 06/05/2011 None Full Exam - General Constitutional general appearance Overall: well nourished 12/03/2010 None Full Exam - General Constitutional general appearance Overall: well developed 12/03/2010 None Full Exam - General Constitutional general appearance Overall: in no acute distress 12/03/2010 None Full Exam - General Neurologic mental status Overall: alert 1 None Full Exam - General Neurologic mental status Overall: oriented 12/03/2010 None Full Exam - General Psychiatric mood and affect Overall: normal mood and affect 12/03/2010 None Full Exam - General Abdomen abdominal exam Overall: no masses 12/03/2010 None Full Exam - General Abdomen abdominal exam Overall: no tenderness 12/03/2010 None Full Exam - General Abdomen abdominal exam Overall: normal bowel sounds 12/03/2010 None Full Exam - General Abdomen abdominal exam Overall: soft 12/03/2010 None Full Exam - General Respiratory auscultation Overall: breath sounds clear bilater ally 12/03/2010 None Full Exam - General Respiratory auscultation Diffuse: a normal exam 12/03/2010 None Full Exam - General Respiratory auscultation Left upper lung field: a normal exam 12/03/2010 None Full Exam - General Respiratory auscultation Left lower lung field: a normal exam 12/03/2010 None Full Exam - General Respiratory auscultation Right upper lung field: a normal exa m 12/03/2010 None Full Exam - General Respiratory auscultation Right middle lung field: a normal ex am 12/03/2010 None Full Exam - General Respiratory auscultation Right lower lung field: a normal exa m 12/03/2010 None Full Exam - General Cardiovascular auscultation of heart Overall: regular rate 12/03/2010 None Full Exam - General Cardiovascular auscultation of heart Overall: normal heart sounds 12/03/2010 None Full Exam - General Cardiovascular auscultation of heart Overall: no murmurs 12/03/2010 None Full Exam - General Cardiovascular auscultation of heart Rate: regular rate 12/03/2010 None Full Exam - General Cardiovascular auscultation of heart Rhythm: regular rhythm 12/03/2010 None Full Exam - General Cardiovascular auscultation of heart S1: a normal exam 12/03/2010 None Full Exam - General Cardiovascular auscultation of heart S2: a normal exam 12/03/2010 None Full Exam - General Neck inspection of neck Overall: normal size 12/03/2010 None Full Exam - General Neck inspection of neck Overall: no masses 12/03/2010 None Full Exam - General Neurologic mental status Overall: alert 0 None Full Exam - General Abdomen abdominal exam Overall: no tenderness 05/22/2010 None Full Exam - General Abdomen abdominal exam Overall: normal bowel sounds 05/22/2010 None Full Exam - General Abdomen abdominal exam Overall: soft 05/22/2010 None Full Exam - General Constitutional general appearance Overall: well nourished 05/22/2010 None Full Exam - General Constitutional general appearance Overall: well developed 05/22/2010 None Full Exam - General Constitutional general appearance Overall: in no acute distress 05/22/2010 None Full Exam - General Cardiovascular auscultation of heart Overall: regular rate 05/22/2010 None Full Exam - General Cardiovascular auscultation of heart Overall: normal heart sounds 05/22/2010 None Full Exam - General Cardiovascular auscultation of heart Overall: no murmurs 05/22/2010 None Full Exam - General Cardiovascular auscultation of heart Rate: regular rate 05/22/2010 None Full Exam - General Cardiovascular auscultation of heart Rhythm: regular rhythm 05/22/2010 None Full Exam - General Cardiovascular auscultation of heart S1: a normal exam 05/22/2010 None Full Exam - General Cardiovascular auscultation of heart S2: a normal exam 05/22/2010 None Full Exam - General Respiratory auscultation Apical: coarse 0 None Full Exam - General Respiratory auscultation Basilar: clear 0 None Full Exam - General Neurologic mental status Overall: oriented 05/22/2010 None Full Exam - General Psychiatric mood and affect Overall: normal mood and affect 05/22/2010 None Full Exam - General Abdomen abdominal exam Overall: no masses 05/22/2010 None Full Exam - General Ears/Nose/Throat lips/teeth/gingiva Overall: benign lips 03/28/2010 None Full Exam - General Ears/Nose/Throat lips/teeth/gingiva Overall: normal dentition 03/28/2010 None Full Exam - General Ears/Nose/Throat oral cavity/pharynx/larynx Right tonsil: enlarged 03/28/2010 None Full Exam - General Respiratory auscultation Overall: breath sounds clear bilater ally 03/28/2010 None Full Exam - General Respiratory respiratory effort/rhythm Overall: no retractions 03/28/2010 None Full Exam - General Ears/Nose/Throat otoscopic exam Left tympanic membrane: a normal exam 03/28/2010 None Full Exam - General Respiratory respiratory effort/rhythm Overall: normal rate 03/28/2010 only slight occasional co ugh reported. Full Exam - General Cardiovascular auscultation of heart Overall: regular rate 03/28/2010 None Full Exam - General Cardiovascular auscultation of heart Overall: normal heart sounds 03/28/2010 None Full Exam - General Integument inspection of skin Overall: no rash, lesions 03/28/2010 None Full Exam - General Constitutional general appearance Overall: well nourished 03/28/2010 None Full Exam - General Constitutional general appearance Overall: well developed 03/28/2010 None Full Exam - General Ears/Nose/Throat lips/teeth/gingiva Overall: benign gingiva 03/28/2010 None Full Exam - General Ears/Nose/Throat oral cavity/pharynx/larynx Left tonsil: 1+ size 03/28/2010 None Full Exam - General Ears/Nose/Throat oral cavity/pharynx/larynx Left tonsil: erythematous 03/28/2010 None Full Exam - General Constitutional general appearance Overall: in no acute distress 03/28/2010 None Full Exam - General Eyes conjunctiva/eyelids Overall: conjunctiva clear 03/28/2010 None Full Exam - General Eyes conjunctiva/eyelids Overall: cornea clear 03/28/2010 None Full Exam - General Eyes pupils and irises Overall: pupils equal, round, reacti ve to light and accomodation 03/28/2010 None Full Exam - General Ears/Nose/Throat external ear Overall: normal appearance 03/28/2010 None Full Exam - General Ears/Nose/Throat external nose Overall: benign appearance 03/28/2010 None Full Exam - General Ears/Nose/Throat otoscopic exam Overall: external auditory canals clear 03/28/2010 None Full Exam - General Ears/Nose/Throat otoscopic exam Right tympanic membrane: erythematous 03/28/2010 None Full Exam - General Ears/Nose/Throat oral cavity/pharynx/larynx Right tonsil: erythematous 03/28/2010 None Full Exam - General Ears/Nose/Throat oral cavity/pharynx/larynx Right tonsil: 1+ size 03/28/2010 None Full Exam - General Respiratory auscultation Overall: breath sounds clear bilater ally 02/11/2010 None Full Exam - General Respiratory auscultation Diffuse: a normal exam 02/11/2010 None Full Exam - General Respiratory auscultation Left upper lung field: a normal exam 02/11/2010 None Full Exam - General Respiratory auscultation Left lower lung field: a normal exam 02/11/2010 None Full Exam - General Respiratory auscultation Right upper lung field: a normal exa m 02/11/2010 None Full Exam - General Respiratory auscultation Right middle lung field: a normal ex am 02/11/2010 None Full Exam - General Respiratory auscultation Right lower lung field: a normal exa m 02/11/2010 None Full Exam - General Abdomen abdominal exam Overall: no masses 02/11/2010 None Full Exam - General Abdomen abdominal exam Overall: no tenderness 02/11/2010 None Full Exam - General Abdomen abdominal exam Overall: normal bowel sounds 02/11/2010 None Full Exam - General Constitutional general appearance Overall: well nourished 02/11/2010 None Full Exam - General Constitutional general appearance Overall: well developed 02/11/2010 None Full Exam - General Constitutional general appearance Overall: in no acute distress 02/11/2010 None Full Exam - General Cardiovascular auscultation of heart Overall: regular rate 02/11/2010 None Full Exam - General Cardiovascular auscultation of heart Overall: normal heart sounds 02/11/2010 None Full Exam - General Cardiovascular auscultation of heart S1: a normal exam 02/11/2010 None Full Exam - General Cardiovascular auscultation of heart S2: a normal exam 02/11/2010 None Full Exam - General Cardiovascular auscultation of heart S3 (ventricular gallop): present 02/11/2010 None Full Exam - General Cardiovascular auscultation of heart S4 (atrial gallop): present 02/11/2010 None Full Exam - General Cardiovascular auscultation of heart Overall: no murmurs 02/11/2010 None Full Exam - General Cardiovascular auscultation of heart Rate: regular rate 02/11/2010 None Full Exam - General Cardiovascular auscultation of heart Rhythm: regular rhythm 02/11/2010 None Full Exam - General Abdomen abdominal exam Overall: soft 02/11/2010 None History of Present Illness Symptom Name Status Resu lt Effective Date Notes ~generic Location diffus jimena 03/08/2012 None ~generic Quality constant 03/08/2012 None ~generic Onset of Symptom 2 weeks ago 03/08/2012 None cellulitis Quality acute 03/08/2012 None cellulitis Quality sharp pain 03/08/2012 with redness to right gre at toe weight gain/obesity Onset and Resolution ongoing 06/05/2011 None urinary incontinence Onset and Resolution ongoing 06/05/2011 None urinary incontinence Onset and Resolution improved during the day 06/05/2011 Bedwetting--sporadic and urge incontinence when needs to go to bathroom weight gain/obesity Location globally 12/03/2010 None weight gain/obesity Quality worsening 12/03/2010 has been off meds at leas t 6mos hyperglycemia Onset and Resolution ongoing 12/03/2010 insulin resistance nausea Quality intermitt ent 05/22/2010 when was on Metformin so stopped meds weight gain/obesity Quality worsening 05/22/2010 since stopped meds sore throat Location on both sides 03/28/2010 None sore throat Onset of Symptom 1 days ago 03/28/2010 None sore throat Quality sharp 03/28/2010 None sore throat Limitation on Activities limits oral intake 03/28/2010 None nausea Frequency of Episodes daily 02/11/2010 None Instructions Comment . Repeat fasting lab including CMP, CBC,Lipids, Insulin, TSH Diet/Exercise discussed at length Fwup pending lab results . Hold Metformin Cont Healthy Diet and Exercise Call in 2wks on nausea Plan lab this summer--April or May . podiatry referral for in-grown toenail removal. Jillian ball. Discussed foot care while waiting for infection to clear. Clean and dry. Caregiver to monitor for worsening infection and or fever or pus. . Check fasting lab- -CMP, Insulin level, TSH Discussed diet and exercise at length Discusse restarting metformin pending above results . Will treat tonsils with Clarithromycin. Referral to Dr. Mendoza for recurrent tonsil enlargement and halitosis. [facility] office April 16 at 11 am . Has had dental appnt. and been cleared of halitosis by dental exam. . See urology--march n eed urethra or bladder stretched Restart metformin at 250mg QD for 1mo Additional Source Comments This clinical document has been generated using [employer] software that has been certified by the Office of the National Coordinator for Health Information Technology (ONC 15.99.04.3023.Diam.31.00.0.500748) and the National Committee for Insurance Claim Representative (NCQA, as an eMeasure certified technology). FOR RECORDS PERTAINING TO PATIENTS WHO ARE OR HAVE BEEN ENROLLED IN A CHEMICAL D EPENDENCY/SUBSTANCE ABUSE PROGRAM, SOME INFORMATION MAY BE OMITTED. This clinica l summary was aggregated from multiple sources. Caution should be exercised in using it in the provision of clinical care. This summary normalizes information from multiple sources, and as a consequence, information in this document may ma terially change the coding, format and clinical context of patient data. In brianna tion, data may be omitted in some cases. CLINICAL DECISIONS SHOULD BE BASED ON T HE PRIMARY CLINICAL RECORDS. [employer] provides no warranty or guara ntee of the accuracy or completeness of information in this document.The followi information is based on time limited clinical information UNRECOGNIZED CONTENT PROVIDED BELOW FOR UNRECOGNIZED SECTION MEDICAL (GENERAL) HISTORY Type Description Date Medical History obesity Medical History fx right tib/fib 2015 Surgical History bladder stretched 2010 Surgical History T & A 2 009 Type Description Date Medical History obesity Medical History fx right tib/fib 2016 Medical History endometriosis Medical History PCOS (Polycystic Ova ry Syndrome) Surgical History bladder stretched 2010 Surgical History T & A 2 009 UNRECOGNIZED CONTENT PROVIDED BELOW FOR UNRECOGNIZED SECTION REASON FOR VISIT ear pain/sore throat-Sore throat x 5 days with congestion, drainage and runny no se. Lt ear pain x 2 days with unknown fever.--Garrick Witt pain-the patient wa s here on the and was diagnosed with double ear infections and was given an tibiotics. The patient is done with the antibiotics and is still having ear pain worse on the right side.--DENA [id number]
--- OUTSIDE RECORDS SUMMARY | 2020-04-01 12:49 | XMS REPORT ---
Author Author Lianne CHAVEZ [facility] Address [address] [place] [address] Care Team Providers Care Business Account Executive Name Role Phone SINGH CHAVEZ Unavailable PROBLEMS Type Condition ICD9-CM Code [id number] Code Onset Dates Condition S tatus SNOMED Code Problem Anxiety disorder, unspecified F41.9 Active [id number] Problem Dysthymic disorder F34.1 Active 7 [id number] ALLERGIES No Information ENCOUNTERS Encounter Location Date Diagnosis [facility] [address] [facility] [id number] [address] [place] [id number] March, Dysthymic disorder F34.1 and Anxiety disorder, unspecified F41.9 [facility] [address] [facility] [id number] [address] [place] [phone] Feb, [facility] [address] [facility] [id number] [address] [place] [address] Feb, Dysthymic disorder F34.1 and Anxiety disorder, unspecified F41.9 [facility] [address] [facility] [id number] [address] [place] [address] Feb, Dysthymic disorder F34.1 and Anxiety disorder, unspecified F41.9 [facility] [address] [facility] [id number] [address] [place] [address] [id number] Jan, Encounter for immunization Z 23 [facility] [address] [facility] [id number] [address] [place] [address] [id number] Jan, Skin infection L08.9 [facility] [address] [facility] [id number] [address] [place] [address] [id number] Dec, Non-recurrent acute suppurat pasha otitis media of right ear without spontaneous rupture of tympanic membrane H66.001 [facility] [address] [place] [id number] [place] [address] [id number] 05 Dec, 2018 Paronychia of finger of righ t hand L03.011 [facility] [address] [place] [id number] [address] [place] [phone] 17 May, 2018 Right acute serous otitis me rohit, recurrence not specified H65.01 and Seasonal allergic conjunctivitis H10.10 [facility] [address] [place] [id number] [address] [place] [id number] 11 May, 2018 Acute mucoid otitis media of left ear H65.112 [facility] [address] [place] [address] [id number] 16 Mar, 2018 Sports physical Z02.5 ; Exer cise counseling Z71.89 and Dietary counseling Z71.[address] [id number] 07 Jan, 2018 Encounter for immunization Z 23 [facility] [address] [id number] 15 Dec, 2017 Sprain of calcaneofibular li gament of left ankle, initial encounter S93.412A [facility] [address] [place] [address] [id number] 06 Jul, 2017 Encounter for immunization Z [address] [id number] 10 Mar, 2017 Sports physical Z02.5 ; Exer cise counseling Z71.89 and Dietary counseling Z71.3 [facility] [address] [facility] [id number] [address] [place] [id number] 14 Jan, 2017 Body aches R52 and Influenza A J10.[id number] [place] [address] [id number] 10 Sep, 2016 Dental examination Z01.20 [facility] [address] [id number] [address] [place] [address] [id number] 08 Sep, 2016 Dental examination Z01.20 [facility] [address] [place] [id number] [place] [address] [id number] March, Sports physical Z02.5 ; Exer cise counseling Z71.89 ; Dietary counseling Z71.3 and Obesity due to excess calories, unspecified obesity severity E66.09 [facility] [address] [place] [id number] [place] [address] [id number] Feb, Encounter for immunization Z 23 [place] [address] [address] Jan, Pain in right knee M25.561 [place] [address] [address] Jan, 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 [place] [address] [id number] 08 Dec, 2015 Weight gain, abnormal R63.5 [place] [address] [id number] 05 Dec, 2015 Migraine with aura and witho ut status migrainosus, not intractable G43.109 ; Acute upper respiratory infection, unspecified J06.9 ; Other viral agents as the cause of diseases classified elsewhere B97.89 ; Pain in right knee M25.561 ; Obstructive sleep apnea G47.33 and Weight gain, abnormal R63.5 [place] [address] [place] [address] Sep, Encounter for immunization Z 23 [facility] [address] [place] [id number] [address] [place] [address] Sep, Dysthymic disorder F34.1 and Anxiety disorder, unspecified F41.9 [place] [address] [place] [id number] [address] [place] [address] Sep, Anxiety disorder, unspecifie d F41.9 and Major depression single episode, 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 [facility] [address] [place] [id number] [address] [place] [address] [id number] Sep, Dental examination Z01.20 [place] [address] [address] Aug, Dysthymic disorder F34.1 and Anxiety disorder, unspecified F41.9 [place] [address] [place] [id number] [address] [place] [address] Jul, Dysthymic disorder 300.4 and Anxiety state, unspecified 300.00 [place] [address] [id number] Jun, Anxiety state, unspecified 3 00.00 and Depression, major, recurrent, 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.35 [place] [address] [address] Jun, Dysthymic disorder 300.4 and Anxiety state, unspecified 300.00 [place] [address] [address] May, Anxiety state, unspecified 3 00.00 and Depression, major, recurrent, 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.35 [place] [address] [address] Apr, Dysthymic disorder 300.4 and Anxiety disorder, unspecified 300.00 [place] [address] [place] [id number] [address] [place] [address] March, Anxiety state, unspecified 3 00.00 and Moderate recurrent major depression 296.32 [facility] [address] [place] [id number] [place] [address] [id number] March, Shortness of breath 786.05 [facility] [address] [id number] March, Routine sports physical exam V70.3 ; Exercise counseling V65.41 ; Dietary counseling V65.3 and Shortness of breath 786.05 [place] [address] [place] [id number] [address] [place] [address] March, Dysthymic disorder 300.4 and Anxiety disorder 300.00 [facility] [address] [id number] [address] [place] [address], [place] [address] Feb, [facility] [address] [id number] [address] [place] [address], [place] [address] Feb, [facility] [address] [id number] [address] [place] [address], [place] [address] Jan, [facility] [address] [id number] [address] [place] [address], [place] [address] Jan, [facility] [address] [id number] [address] [place] [address], [place] [address] Dec, [facility] [address] [id number] [address] [place] [address], [place] [address] Dec, [facility] [address] [id number] [address] [place] [address], [place] [address] Dec, [facility] [address] [id number] [address] [place] [address], [place] [address] Dec, [facility] [address] [id number] [address] [place] [address], [place] [address] Nov, [facility] [address] [id number] [address] [place] [address], [place] [address] Nov, [facility] [address] [id number] [address] [place] [address] Nov, [facility] [address] [id number] [address] [place] [address] Nov, [facility] [address] [id number] [address] [place] [address], [place] [address] Sep, [facility] [address] [id number] [address] [place] [address] Sep, [facility] [address] [id number] [address] [place] [address], [place] [address] Oct, [facility] [address] [id number] [address] [place] [address] Oct, [facility] [address] [id number] [address] [place] [address] Oct, [facility] [address] [id number] [address] [place] [address] Oct, [facility] [address] [id number] [address] [place] [address] Sep, [facility] [address] [id number] [address] [place] [address] Sep, [facility] [address] [id number] [address] [place] [address] Sep, [facility] [address] [id number] [address] [place] [address] Sep, [facility] [address] [id number] [address] [place] [address] Sep, [facility] [address] [id number] [address] [place] [address] Aug, [facility] [address] [id number] [address] [place] [address] Aug, [facility] [address] [id number] [address] [place] [address] Jul, [facility] [address] [id number] [address] [place] [address] Jun, [facility] [address] [id number] [address] [place] [address] March, [facility] [address] [id number] [address] [place] [address] Feb, IMMUNIZATIONS No Known Immunizations SOCIAL HISTORY Never Assessed REASON FOR VISIT PLAN OF CARE VITAL SIGNS MEDICATIONS Unknown Medications RESULTS No Results PROCEDURES Procedure Date Ordered Result Body Site PSYTX PT&/FAMILY 45 MINUTES February 21, 2015 INSTRUCTIONS MEDICATIONS ADMINISTERED No Known Medications MEDICAL (GENERAL) HISTORY Type Description Date Medical History obesity Medical History fx right tib/fib 2016 Medical History endometriosis Medical History PCOS (Polycystic Ovary Syndrome) Surgical History bladder stretched 2010 Surgical History T & A 2009
--- OUTSIDE RECORDS SUMMARY | 2020-04-01 12:49 | XMS REPORT ---
Author Author Lianne Iqbal Organization [facility] Address [address] [place] [address] Care Team Providers Care Rough Patcher Name Role Phone LUZ Iqbal Unavailable PROBLEMS Type Condition ICD9-CM Code [id number] Code Onset Dates Condition S tatus SNOMED Code Problem Dysthymic disorder F34.1 Active 7 1986198 Problem Anxiety disorder, unspecified F41.9 Active [id number] ALLERGIES No Information ENCOUNTERS Encounter Location Date Diagnosis [facility] [address] [place] [id number] [address] [place] [address] May, Acute mucoid otitis media of left ear H65.112 [facility] [address] [id number] March, Sports physical Z02.5 ; Exer cise counseling Z71.89 and Dietary counseling Z71.3 [facility] [address] [place] [id number] [place] [address] [id number] Jan, Encounter for immunization Z 23 [facility] [address] [place] [id number] [place] [address] [id number] 15 Dec, 2017 Sprain of calcaneofibular li gament of left ankle, initial encounter S93.412A [facility] [address] [place] [id number] [place] [address] [id number] Jul, Encounter for immunization Z 23 [facility] [address] [place] [id number] [place] [address] [id number] 10 Mar, 2017 Sports physical Z02.5 ; Exer cise counseling Z71.89 and Dietary counseling Z71.3 [facility] [address] [facility] [id number] [address] [place] [id number] 14 Mar, 2017 Body aches R52 and Influenza A J10.1 [facility] [address] [id number] [id number] 10 Sep, 2016 Dental examination Z01.20 [facility] [address] [id number] [address] [place] [address] [id number] 08 Sep, 2016 Dental examination Z01.20 [facility] [address] [place] [id number] [place] [address] [id number] March, Sports physical Z02.5 ; Exer cise counseling Z71.89 ; Dietary counseling Z71.3 and Obesity due to excess calories, unspecified obesity severity E66.09 [facility] [address] [place] [id number] [place] [address] [id number] Feb, Encounter for immunization Z 23 [place] [address] [place] [id number] [address] [place] [address] Jan, Pain in right knee M25.561 [place] [address] [place] [id number] [address] [place] [address] Jan, 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 [place] [address] [place] [id number] [address] [place] [address] 08 Dec, 2015 Weight gain, abnormal R63.5 [facility] [address] [place] [id number] [address] [place] [id number] 05 Dec, 2015 Migraine with aura and witho ut status migrainosus, not intractable G43.109 ; Acute upper respiratory infection, unspecified J06.9 ; Other viral agents as the cause of diseases classified elsewhere B97.89 ; Pain in right knee M25.561 ; Obstructive sleep apnea G47.33 and Weight gain, abnormal R63.5 [facility] [address] [place] [id number] [address] [place] [address] Sep, Encounter for immunization Z 23 [facility] [address] [place] [id number] [address] [place] [address] Sep, Dysthymic disorder F34.1 and Anxiety disorder, unspecified F41.9 [facility] [address] [facility] [id number] [address] [place] [address] Sep, Anxiety disorder, unspecifie d F41.9 and Major depression single episode, 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 [facility] [address] [id number] [address] [place] [address] [id number] Sep, Dental examination Z01.20 [facility] [address] [facility] [id number] [address] [place] [address] Aug, Dysthymic disorder F34.1 and Anxiety disorder, unspecified F41.9 [place] [address] [facility] [id number] [address] [place] [address] Jul, Dysthymic disorder 300.4 and Anxiety state, unspecified 300.00 [facility] [address] [facility] [id number] [address] [place] [address] Jun, Anxiety state, unspecified 3 00.00 and Depression, major, recurrent, 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.35 [facility] [address] [facility] [id number] [address] [place] [address] Jun, Dysthymic disorder 300.4 and Anxiety state, unspecified 300.00 [facility] [address] [facility] [id number] [address] [place] [address] May, Anxiety state, unspecified 3 00.00 and Depression, major, recurrent, 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.35 [facility] [address] [facility] [id number] [address] [place] [address] Apr, Dysthymic disorder 300.4 and Anxiety disorder, unspecified 300.00 [facility] [address] [facility] [id number] [address] [place] [address] March, Anxiety state, unspecified 3 00.00 and Moderate recurrent major depression 296.32 [facility] [address] [facility] [id number] [place] [address] [id number] March, Shortness of breath 786.05 [facility] [address] [facility] [id number] [place] [address] [id number] March, Routine sports physical exam V70.3 ; Exercise counseling V65.41 ; Dietary counseling V65.3 and Shortness of breath 786.05 [facility] [address] [id number] [address] [place] [address] March, Dysthymic disorder 300.4 and Anxiety disorder 300.00 [facility] [address] [id number] [address] [place] [address] Feb, [facility] [address] [id number] [address] [place] [address] Feb, [facility] [address] [id number] [address] [place] [address] Jan, [facility] [address] [facility] [id number] [address] [place] [address] Jan, [facility] [address] [id number] [address] [place] [address] Dec, [facility] [address] [id number] [address] [place] [address] Dec, [facility] [address] [facility] [id number] [address] [place] [address] Dec, [facility] [address] [id number] [address] [place] [address] Dec, [facility] [address] [id number] [address] [place] [address] Nov, [facility] [address] [id number] [address] [place] [address] Nov, [facility] [address] [id number] [address] [place] [address] Nov, [facility] [address] [id number] [address] [place] [address] Nov, [facility] [address] [id number] [address] [place] [address] Sep, [facility] [address] [id number] [address] [place] [address], [place] [address] Sep, [facility] [address] [id number] [address] [place] [phone] Oct, [facility] [address] [id number] [address] [place] [address], [place] [address] Oct, [facility] [address] [id number] [address] [place] [address] Oct, [facility] [address] [id number] [address] [place] [address], [place] [address] Oct, [facility] [address] [id number] [address] [place] [address], [place] [address] Sep, [facility] [address] [id number] [address] [place] [address], [place] [address] Sep, [facility] [address] [id number] [address] [place] [address], [place] [address] 16 Sep, 2013 [facility] [address] [id number] [address] [place] [phone] Sep, [facility] [address] [id number] [address] [place] [address] Sep, [facility] [address] [id number] [address] [place] [address] Aug, [facility] [address] [id number] [address] [place] [address] Aug, [facility] [address] [id number] [address] [place] [address] Jul, [facility] [address] [id number] [address] [place] [address], [place] [address] Jun, [facility] [address] [id number] [address] [place] [address], [place] [address] March, [facility] [address] [id number] [address] [place] [address] Feb, IMMUNIZATIONS Vaccine Route Administration Date Status BEXSERO (MEN B) IM Intramuscular February 03, 2018 Administered HEP A (PED/ADOL-2 DOSE) IM Intramuscular February 03, 2018 Adminis tered SOCIAL HISTORY Never Assessed REASON FOR VISIT #2 Hep A/#1 B[facility]sero[facility] 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
--- OUTSIDE RECORDS SUMMARY | 2020-04-01 12:49 | XMS REPORT ---
Author Author Lianne ZHAO Organization [facility] Address [address] [place] [address] Care Team Providers Care Campaign Marketing Specialist Name Role Phone AAMIRJayceeLUZ Unavailable PROBLEMS Type Condition ICD9-CM Code [id number] Code Onset Dates Condition S tatus SNOMED Code Problem Dysthymic disorder F34.1 Active 7 2888691 Problem Anxiety disorder, unspecified F41.9 Active [id number] ALLERGIES No Known Allergies SOCIAL HISTORY Never Assessed PLAN OF CARE Activity Details Follow Up 1 Year Reason: VITAL SIGNS Height 61 in 2017-04-08 Weight 218.0 lbs 2017-04-08 Temperature 98.5 degrees Fahrenheit 2017-04-08 Heart Rate 63 bpm 2017-04-08 Respiratory Rate 20 2017-04-08 BMI 41.19 kg/m2 2017-04-08 Blood pressure systolic 121 mmHg 2017-04-08 Blood pressure diastolic 64 mmHg 2017-04-08 MEDICATIONS Unknown Medications RESULTS No Results PROCEDURES Procedure Date Ordered Result Body Site VISUAL ACUITY SCREEN April 08, 2017 IMMUNIZATIONS No Known Immunizations MEDICAL (GENERAL) HISTORY Type Description Date Medical History obesity Medical History fx right tib/fib 2015 Surgical History bladder stretched 2010 Surgical History T & A 2008
--- OUTSIDE RECORDS SUMMARY | 2020-04-01 12:49 | XMS REPORT ---
Author Author Lianne CHAVEZ [facility] Address [address] [place] [address] Care Team Providers Care Physician General Internal Medicine Name Role Phone SINGH CHAVEZ Unavailable PROBLEMS Type Condition ICD9-CM Code [id number] Code Onset Dates Condition S tatus SNOMED Code Problem Anxiety disorder, unspecified F41.9 Active 945875708 Problem Dysthymic disorder F34.1 Active 7 [id number] ALLERGIES No Information ENCOUNTERS Encounter Location Date Diagnosis [facility] [address] [facility] [id number] [address] [place] [id number] March, Dysthymic disorder F34.1 and Anxiety disorder, unspecified F41.9 [facility] [address] [facility] [id number] [address] [place] [id number] Feb, [facility] [address] [facility] [id number] [address] [place] [id number] Feb, Dysthymic disorder F34.1 and Anxiety disorder, unspecified F41.9 [facility] [address] [facility] [id number] [address] [place] [id number] Feb, Dysthymic disorder F34.1 and Anxiety disorder, unspecified F41.9 [facility] [address] [facility] [id number] [address] [place] [address] [id number] Jan, Encounter for immunization Z 23 [facility] [address] [facility] [id number] [address] [place] [address] [id number] Jan, Skin infection L08.9 [facility] [address] [facility] [id number] [address] [place] [address] [id number] Dec, Non-recurrent acute suppurat pasha otitis media of right ear without spontaneous rupture of tympanic membrane H66.001 [facility] [address] [place] [id number] [place] [address] [id number] 05 Dec, 2018 Paronychia of finger of righ t hand L03.011 [facility] [address] [place] [id number] [address] [place] [id number] 17 May, 2018 Right acute serous otitis me rohit, recurrence not specified H65.01 and Seasonal allergic conjunctivitis H10.10 [facility] [address] [place] [id number] [address] [place] [id number] 11 May, 2018 Acute mucoid otitis media of left ear H65.112 [facility] [address] [place] [address] [id number] 16 Mar, 2018 Sports physical Z02.5 ; Exer cise counseling Z71.89 and Dietary counseling Z71.[address] [id number] 07 Jan, 2018 Encounter for immunization Z 23 [facility] [address] [id number] 15 Dec, 2017 Sprain of calcaneofibular li gament of left ankle, initial encounter S93.412A [facility] [address] [place] [address] [id number] 06 Jul, 2017 Encounter for immunization Z [address] [id number] 10 Mar, 2017 Sports physical Z02.5 ; Exer cise counseling Z71.89 and Dietary counseling Z71.3 [facility] [address] [facility] [id number] [address] [place] [id number] 14 Jan, 2017 Body aches R52 and Influenza A J10.[address] [id number] [place] [address] [id number] 10 Sep, 2016 Dental examination Z01.20 [facility] [address] [id number] [address] [place] [address] [id number] 08 Sep, 2016 Dental examination Z01.20 [facility] [address] [place] [id number] [place] [address] [id number] March, Sports physical Z02.5 ; Exer cise counseling Z71.89 ; Dietary counseling Z71.3 and Obesity due to excess calories, unspecified obesity severity E66.09 [facility] [address] [place] [id number] [place] [address] [id number] Feb, Encounter for immunization Z 23 [place] [address] [id number] Jan, Pain in right knee M25.561 [place] [address] [address] Jan, 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 [facility] [address] [place] [id number] [address] [place] [address] [id number] Sep, Dental examination Z01.20 [place] [address] [id number] Aug, Dysthymic disorder F34.1 and Anxiety disorder, unspecified F41.9 [place] [address] [place] [id number] [address] [place] [id number] Jul, Dysthymic disorder 300.4 and Anxiety state, unspecified 300.00 [place] [address] [address] Jun, Anxiety state, unspecified 3 00.00 and Depression, major, recurrent, 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.35 [place] [address] [address] Jun, Dysthymic disorder 300.4 and Anxiety state, unspecified 300.00 [place] [address] [id number] May, Anxiety state, unspecified 3 00.00 and Depression, major, recurrent, 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.35 [place] [address] [id number] Apr, Dysthymic disorder 300.4 and Anxiety disorder, unspecified 300.00 [place] [address] [place] [id number] [address] [place] [phone] March, Anxiety state, unspecified 3 00.00 and Moderate recurrent major depression 296.32 [facility] [place] [address] [place] [id number] [place] [address] [id number] March, Shortness of breath 786.05 [facility] [address] [id number] March, Routine sports physical exam V70.3 ; Exercise counseling V65.41 ; Dietary counseling V65.3 and Shortness of breath 786.05 [place] [address] [place] [id number] [address] [place] [phone] March, Dysthymic disorder 300.4 and Anxiety disorder 300.00 [facility] [address] [id number] [address] [place] [address], [place] [id number] Feb, [facility] [address] [id number] [address] [place] [address], [place] [id number] Feb, [facility] [address] [id number] [address] [place] [address], [place] [id number] Jan, [facility] [address] [id number] [address] [place] [address], [place] [id number] Jan, [facility] [address] [id number] [address] [place] [address], [place] [id number] Dec, [facility] [address] [id number] [address] [place] [address], [place] [id number] Dec, [facility] [address] [id number] [address] [place] [address], [place] [id number] Dec, [facility] [address] [id number] [address] [place] [address], [place] [id number] Dec, [facility] [address] [id number] [address] [place] [address], [place] [id number] Nov, [facility] [address] [id number] [address] [place] [address], [place] [id number] Nov, [facility] [address] [id number] [address] [place] [phone] Nov, [facility] [address] [id number] [address] [place] [phone] Nov, [facility] [address] [id number] [address] [place] [address], [place] [id number] Sep, [facility] [address] [id number] [address] [place] [phone] Sep, [facility] [address] [id number] [address] [place] [address], [place] [id number] Oct, [facility] [address] [id number] [address] [place] [phone] Oct, [facility] [address] [id number] [address] [place] [phone] Oct, [facility] [address] [id number] [address] [place] [phone] Oct, [facility] [address] [id number] [address] [place] [phone] Sep, [facility] [address] [id number] [address] [place] [phone] Sep, [facility] [address] [id number] [address] [place] [phone] Sep, [facility] [address] [id number] [address] [place] [phone] Sep, [facility] [address] [id number] [address] [place] [phone] Sep, [facility] [address] [id number] [address] [place] [phone] Aug, [facility] [address] [id number] [address] [place] [phone] Aug, [facility] [address] [id number] [address] [place] [phone] Jul, [facility] [address] [id number] [address] [place] [phone] Jun, [facility] [address] [id number] [address] [place] [phone] March, [facility] [address] [id number] [address] [place] [phone] Feb, IMMUNIZATIONS No Known Immunizations SOCIAL HISTORY Never Assessed REASON FOR VISIT PLAN OF CARE VITAL SIGNS MEDICATIONS Unknown Medications RESULTS No Results PROCEDURES Procedure Date Ordered Result Body Site PSYTX PT&/FAMILY 45 MINUTES Dec 13, 2014 INSTRUCTIONS MEDICATIONS ADMINISTERED No Known Medications MEDICAL (GENERAL) HISTORY Type Description Date Medical History obesity Medical History fx right tib/fib 2016 Medical History endometriosis Medical History PCOS (Polycystic Ovary Syndrome) Surgical History bladder stretched 2010 Surgical History T & A 2009
--- OUTSIDE RECORDS SUMMARY | 2020-04-01 12:49 | XMS REPORT ---
Author Author Jayme, Lianne Doctor Organization [facility] Address Unknown Phone Unavailable Care Team Providers Care Anatomic Pathology Assistant Name Role Phone Migration, Doctor Unavailable Unavailable PROBLEMS Type Condition ICD9-CM Code [id number] Code Onset Dates Condition S tatus SNOMED Code Problem Anxiety disorder, unspecified F41.9 Active [id number] Problem Dysthymic disorder F34.1 Active 7 1816981 ALLERGIES No Information ENCOUNTERS Encounter Location Date Diagnosis [facility] [address] [facility] [id number] [address] [place] [phone] March, [facility] [address] [facility] [id number] [address] [place] [phone] Feb, [facility] [address] [facility] [id number] [address] [place] [phone] Feb, [facility] [address] [facility] [id number] [address] [place] [phone] Feb, Dysthymic disorder F34.1 and Anxiety disorder, unspecified F41.9 [facility] [address] [facility] [id number] [place] [address] [id number] Jan, Encounter for immunization Z 23 [facility] [address] [facility] [id number] [address] [place] [address] [id number] Jan, Skin infection L08.9 [facility] [address] [facility] [id number] [address] [place] [address] [id number] Dec, Non-recurrent acute suppurat pasha otitis media of right ear without spontaneous rupture of tympanic membrane H66.001 [facility] [address] [facility] [id number] [address] [place] [address] [id number] 05 Dec, 2018 Paronychia of finger of righ t hand L03.011 [facility] [address] [facility] [id number] [address] [place] [phone] 17 May, 2018 Right acute serous otitis me rohit, recurrence not specified H65.01 and Seasonal allergic conjunctivitis H10.10 [facility] [address] [facility] [id number] [address] [place] [phone] 11 May, 2018 Acute mucoid otitis media of left ear H65.112 [facility] [address] [facility] [id number] [place] [address] [id number] 16 Mar, 2018 Sports physical Z02.5 ; Exer cise counseling Z71.89 and Dietary counseling Z71.3 [facility] [address] [id number] 07 Jan, 2018 Encounter for immunization Z 23 [facility] [address] [facility] [id number] [place] [address] [id number] 15 Dec, 2017 Sprain of calcaneofibular li gament of left ankle, initial encounter S93.412A [facility] [address] [place] [id number] [place] [address] [id number] 06 Jul, 2017 Encounter for immunization Z 23 [facility] [address] [place] [id number] [place] [address] [id number] 10 Mar, 2017 Sports physical Z02.5 ; Exer cise counseling Z71.89 and Dietary counseling Z71.3 [facility] [address] [facility] [id number] [address] [place] [id number] 14 Jan, 2017 Body aches R52 and Influenza A J10.[address] [place] [address] [id number] [id number] 10 Sep, 2016 Dental examination Z01.20 [facility] [address] [id number] [address] [place] [address] [id number] 08 Sep, 2016 Dental examination Z01.20 [facility] [address] [facility] [id number] [place] [address] [id number] 18 Mar, 2016 Sports physical Z02.5 ; Exer cise counseling Z71.89 ; Dietary counseling Z71.3 and Obesity due to excess calories, unspecified obesity severity E66.09 [facility] [address] [place] [id number] [place] [address] [id number] Feb, Encounter for immunization Z 23 [facility] [address] [place] [id number] Jan, Pain in right knee M25.561 [facility] [address] [place] [id number] 03 Jan, 2016 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 [place] [address] [place] [id number] [address] [place] [id number] 08 Dec, 2015 Weight gain, abnormal R63.5 [place] [address] [id number] 05 Dec, 2015 Migraine with aura and witho ut status migrainosus, not intractable G43.109 ; Acute upper respiratory infection, unspecified J06.9 ; Other viral agents as the cause of diseases classified elsewhere B97.89 ; Pain in right knee M25.561 ; Obstructive sleep apnea G47.33 and Weight gain, abnormal R63.5 [place] [address] [place] [id number] [address] [place] [id number] 24 Sep, 2015 Encounter for immunization Z 23 [facility] [address] [place] [id number] [address] [place] [phone] 18 Sep, 2015 Dysthymic disorder F34.1 and Anxiety disorder, unspecified F41.9 [place] [address] [place] [id number] [address] [place] [id number] 17 Sep, 2015 Anxiety disorder, unspecifie d F41.9 and Major depression single episode, 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 [facility] [address] [place] [id number] [address] [place] [address] [id number] Sep, Dental examination Z01.20 [facility] [address] [place] [id number] [address] [place] [phone] Aug, Dysthymic disorder F34.1 and Anxiety disorder, unspecified F41.9 [facility] [address] [place] [id number] [address] [place] [id number] Jul, Dysthymic disorder 300.4 and Anxiety state, unspecified 300.00 [facility] [address] [place] [id number] [address] [place] [id number] Jun, Anxiety state, unspecified 3 00.00 and Depression, major, recurrent, 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.35 [facility] [address] [phone] Jun, Dysthymic disorder 300.4 and Anxiety state, unspecified 300.00 [place] [address] [place] [id number] [place] [phone] May, Anxiety state, unspecified 3 00.00 and Depression, major, recurrent, 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.35 [place] [address] [place] [id number] [place] [phone] Apr, Dysthymic disorder 300.4 and Anxiety disorder, unspecified 300.00 [place] [address] [place] [id number] [address] [place] [phone] March, Anxiety state, unspecified 3 00.00 and Moderate recurrent major depression 296.32 [facility] [address] [id number] March, Shortness of breath 786.05 [facility] [address] [id number] March, Routine sports physical exam V70.3 ; Exercise counseling V65.41 ; Dietary counseling V65.3 and Shortness of breath 786.05 [place] [address] [place] [id number] [address] [place] [phone] March, Dysthymic disorder 300.4 and Anxiety disorder 300.00 [place] [address] [place] [id number] [address] [place] [phone] Feb, [place] [address] [phone] Feb, [facility] [address] [id number] [address] [place] [address], [place] [phone] Jan, [facility] [address] [id number] [address] [place] [address], [place] [phone] Jan, [facility] [address] [id number] [address] [place] [address], [place] [address] Dec, [facility] [address] [id number] [address] [place] [address], [place] [address] Dec, [facility] [address] [id number] [address] [place] [address], [place] [phone] Dec, [facility] [address] [id number] [address] [place] [address], [place] [phone] Dec, [facility] [address] [id number] [address] [place] [address], [place] [phone] Nov, [facility] [address] [id number] [address] [place] [address], [place] [phone] Nov, [facility] [address] [id number] [address] [place] [address], [place] [phone] Nov, [facility] [address] [id number] [address] [place] [address], [place] [phone] Nov, [facility] [address] [id number] [address] [place] [address], [place] [address] Sep, [facility] [address] [id number] [address] [place] [address], [place] [id number] Sep, [facility] [address] [id number] [address] [place] [address], [place] [address] Oct, [facility] [address] [id number] [address] [place] [address], [place] [phone] Oct, [facility] [address] [id number] [address] [place] [address], [place] [address] Oct, [facility] [address] [id number] [address] [place] [phone] Oct, [facility] [address] [id number] [address] [place] [phone] Sep, [facility] [address] [id number] [address] [place] [phone] Sep, [facility] [address] [id number] [address] [place] [phone] Sep, [facility] [address] [id number] [address] [place] [phone] Sep, [facility] [address] [id number] [address] [place] [phone] Sep, [facility] [address] [id number] [address] [place] [phone] Aug, [facility] [address] [id number] [address] [place] [phone] Aug, [facility] [address] [id number] [address] [place] [phone] Jul, [facility] [address] [id number] [address] [place] [phone] Jun, [facility] [address] [id number] [address] [place] [phone] March, [facility] [address] [id number] [address] [place] [phone] Feb, IMMUNIZATIONS No Known Immunizations SOCIAL HISTORY Never Assessed REASON FOR VISIT [place] [place] CARE VITAL SIGNS MEDICATIONS Unknown Medications RESULTS No Results PROCEDURES No Known procedures INSTRUCTIONS MEDICATIONS ADMINISTERED No Known Medications MEDICAL (GENERAL) HISTORY Type Description Date Medical History obesity Medical History fx right tib/fib 2016 Medical History endometriosis Medical History PCOS (Polycystic Ovary Syndrome) Surgical History bladder stretched 2010 Surgical History T & A 2008
--- OUTSIDE RECORDS SUMMARY | 2020-04-01 12:49 | XMS REPORT ---
Author Author Lianne Iqbal Organization [facility] Address [address] [place] [address] Care Team Providers Care Finishing Tunnel Operator Name Role Phone LUZ Iqbal Unavailable PROBLEMS Type Condition ICD9-CM Code XFQ09-UU Code Onset Dates Condition S tatus SNOMED Code Problem Dysthymic disorder F34.1 Active 7 2123273 Problem Anxiety disorder, unspecified F41.9 Active [id number] ALLERGIES No Known Allergies ENCOUNTERS Encounter Location Date Diagnosis [facility] [address] [id number] [address] [place] [id number] 17 May, 2018 Right acute serous otitis me rohit, recurrence not specified H65.01 and Seasonal allergic conjunctivitis H10.10 [facility] [address] [facility] [id number] [place] [address] 11 May, 2018 Acute mucoid otitis media of left ear H65.112 [facility] [id number] [place] [address] [phone] March, Sports physical Z02.5 ; Exer cise counseling Z71.89 and Dietary counseling Z71.3 [facility] [id number] [place] [address] [phone] Jan, Encounter for immunization Z 23 [facility] [id number] [place] [address] [id number] Dec, Sprain of calcaneofibular li gament of left ankle, initial encounter S93.412A [facility] [id number] [place] [address] [id number] Jul, Encounter for immunization Z 23 [facility] [id number] [place] [address] [phone] March, Sports physical Z02.5 ; Exer cise counseling Z71.89 and Dietary counseling Z71.3 [facility] [address] [facility] [id number] [address] [place] [phone] 14 Jan, 2017 Body aches R52 and Influenza A J10.1 [facility] [address] [id number] [id number] 10 Sep, 2016 Dental examination Z01.20 [facility] [address] [id number] [place] [id number] 08 Sep, 2016 Dental examination Z01.20 [facility] [address] [facility] [id number] [place] [address] [id number] 18 Mar, 2016 Sports physical Z02.5 ; Exer cise counseling Z71.89 ; Dietary counseling Z71.3 and Obesity due to excess calories, unspecified obesity severity E66.09 [facility] [id number] [place] [address] [phone] Feb, Encounter for immunization Z 23 [facility] [address] [id number] [address] [place] [phone] 09 Jan, 2016 Pain in right knee M25.561 [place] [address] [address] 03 Jan, 2016 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 [facility] [address] [id number] [address] [place] [phone] 08 Dec, 2015 Weight gain, abnormal R63.5 [facility] [address] [id number] [address] [place] [phone] 05 Dec, 2015 Migraine with aura and witho ut status migrainosus, not intractable G43.109 ; Acute upper respiratory infection, unspecified J06.9 ; Other viral agents as the cause of diseases classified elsewhere B97.89 ; Pain in right knee M25.561 ; Obstructive sleep apnea G47.33 and Weight gain, abnormal R63.5 [facility] [address] [id number] [address] [place] [phone] Sep, Encounter for immunization Z 23 [facility] [address] [facility] [id number] [address] [place] [phone] Sep, Dysthymic disorder F34.1 and Anxiety disorder, unspecified F41.9 [facility] [address] [facility] [id number] [address] [place] [phone] Sep, Anxiety disorder, unspecifie d F41.9 and Major depression single episode, 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 [facility] [address] [id number] [address] [place] [address] [phone] Sep, Dental examination Z01.20 [facility] [address] [id number] [address] [place] [phone] Aug, Dysthymic disorder F34.1 and Anxiety disorder, unspecified F41.9 [place] [id number] [address] [place] [phone] Jul, Dysthymic disorder 300.4 and Anxiety state, unspecified 300.00 [facility] [address] [id number] [address] [place] [phone] Jun, Anxiety state, unspecified 3 00.00 and Depression, major, recurrent, 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.35 [facility] [address] [id number] [address] [place] [phone] Jun, Dysthymic disorder 300.4 and Anxiety state, unspecified 300.00 [facility] [address] [id number] [address] [place] [phone] May, Anxiety state, unspecified 3 00.00 and Depression, major, recurrent, 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.35 [facility] [address] [id number] [address] [place] [phone] Apr, Dysthymic disorder 300.4 and Anxiety disorder, unspecified 300.00 [facility] [address] [facility] [id number] [address] [place] [phone] March, Anxiety state, unspecified 3 00.00 and Moderate recurrent major depression 296.32 [facility] [address] [facility] [id number] [place] [address] [id number] March, Shortness of breath 786.05 [facility] [address] [facility] [id number] [place] [address] [id number] March, Routine sports physical exam V70.3 ; Exercise counseling V65.41 ; Dietary counseling V65.3 and Shortness of breath 786.05 [facility] [address] [facility] [id number] [address] [place] [phone] March, Dysthymic disorder 300.4 and Anxiety disorder 300.00 [facility] [address] [facility] [id number] [address] [place] [phone] Feb, [facility] [address] [facility] [id number] [address] [place] [phone] Feb, [facility] [address] [id number] [address] [place] [phone] Jan, [facility] [address] [facility] [id number] [address] [place] [phone] Jan, [facility] [address] [id number] [address] [place] [phone] Dec, [facility] [address] [facility] [id number] [address] [place] [phone] Dec, [facility] [address] [facility] [id number] [address] [place] [phone] Dec, [facility] [address] [facility] [id number] [address] [place] [phone] Dec, [facility] [address] [facility] [id number] [address] [place] [phone] Nov, [facility] [address] [facility] [id number] [address] [place] [phone] Nov, [facility] [address] [facility] [id number] [address] [place] [phone] 14 Nov, 2014 [facility] [address] [id number] [address] [place] [address], [place] [address] 14 Nov, 2014 [facility] [address] [id number] [address] [place] [address], [place] [address] Sep, [facility] [address] [id number] [address] [place] [address], [place] [address] Sep, [facility] [address] [id number] [address] [place] [address], [place] [address] Oct, [facility] [address] [id number] [address] [place] [address], [place] [address] 30 Oct, 2013 [facility] [address] [id number] [address] [place] [address], [place] [address] Oct, [facility] [address] [id number] [address] [place] [address], [place] [address] Oct, [facility] [address] [id number] [address] [place] [address], [place] [address] 18 Sep, 2013 [facility] [address] [id number] [address] [place] [address], [place] [address] 18 Sep, 2013 [facility] [address] [id number] [address] [place] [phone] 16 Sep, 2013 [facility] [address] [id number] [address] [place] [phone] 15 Sep, 2013 [facility] [address] [id number] [address] [place] [phone] 15 Sep, 2013 [facility] [address] [id number] [address] [place] [address], [place] [address] Aug, [facility] [address] [id number] [address] [place] [address], [place] [address] Aug, [facility] [address] [id number] [address] [place] [address], [place] [address] Jul, [facility] [address] [id number] [address] [place] [phone] Jun, [facility] [address] [facility] [id number] [address] [place] [phone] March, [facility] [address] [facility] [id number] [address] [place] [phone] Feb, IMMUNIZATIONS No Known Immunizations SOCIAL HISTORY Never Assessed REASON FOR VISIT Sports Physical-Wen EAST PLAN OF CARE Activity Details Follow Up 1 Year Reason: VITAL SIGNS Height 61 in 2018-04-14 Weight 197 lbs 2018-04-14 Temperature 98.8 degrees Fahrenheit 2018-04-14 Heart Rate 80 bpm 2018-04-14 Respiratory Rate 18 2018-04-14 BMI 37.22 kg/m2 2018-04-14 Blood pressure systolic 118 mmHg 2018-04-14 Blood pressure diastolic 70 mmHg 2018-04-14 MEDICATIONS Medication Instructions Dosage Frequency Start Date End Date Duration S tatus Imitrex 25 MG Orally Once. May repeat in 2 hours if n eeded 1 tablet as needed at onset of migraine headache Dec, Not-Taking RESULTS No Results PROCEDURES Procedure Date Ordered Result Body Site VISUAL ACUITY SCREEN April 14, 2018 INSTRUCTIONS MEDICATIONS ADMINISTERED No Known Medications MEDICAL (GENERAL) HISTORY Type Description Date Medical History obesity Medical History fx right tib/fib 2015 Surgical History bladder stretched 2010 Surgical History T & A 2008
--- OUTSIDE RECORDS SUMMARY | 2020-04-01 12:49 | XMS REPORT ---
Author Author Lianne MATTSON Organization [facility] Address [address] [place] [address] Care Team Providers Care Merchandise Planning Manager Name Role Phone TWILA EARL Unavailable PROBLEMS Type Condition ICD9-CM Code GYY50-PT Code Onset Dates Condition S tatus SNOMED Code Problem Dysthymic disorder F34.1 Active 7 6604433 Problem Anxiety disorder, unspecified F41.9 Active [id number] ALLERGIES No Known Allergies ENCOUNTERS Encounter Location Date Diagnosis [facility] [address] [facility] [id number] [address] [place] [phone] May, Right acute serous otitis me rohit, recurrence not specified H65.01 and Seasonal allergic conjunctivitis H10.10 [facility] [address] [facility] [id number] [address] [place] [address] May, Acute mucoid otitis media of left ear H65.112 [facility] [id number] [place] [address] [id number] March, Sports physical Z02.5 ; Exer cise counseling Z71.89 and Dietary counseling Z71.3 [facility] [id number] [place] [address] [id number] Jan, Encounter for immunization Z 23 [facility] [id number] [place] [address] [id number] Dec, Sprain of calcaneofibular li gament of left ankle, initial encounter S93.412A [facility] [id number] [place] [address] [id number] Jul, Encounter for immunization Z 23 [facility] [id number] [place] [address] [id number] March, Sports physical Z02.5 ; Exer cise counseling Z71.89 and Dietary counseling Z71.3 [facility] [address] [facility] [id number] [address] [place] [phone] 14 Jan, 2017 Body aches R52 and Influenza A J10.[address] [facility] [address] [id number] [id number] 10 Sep, 2016 Dental examination Z01.20 [facility] [address] [id number] [place] [id number] 08 Sep, 2016 Dental examination Z01.20 [facility] [address] [facility] [id number] [place] [id number] 18 Mar, 2016 Sports physical Z02.5 ; Exer cise counseling Z71.89 ; Dietary counseling Z71.3 and Obesity due to excess calories, unspecified obesity severity E66.09 [facility] [address] [id number] [place] [address] [id number] Feb, Encounter for immunization Z 23 [facility] [address] [id number] [address] [place] [phone] 09 Jan, 2016 Pain in right knee M25.561 [place] [address] [address] 03 Jan, 2016 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 [facility] [address] [place] [phone] 08 Dec, 2015 Weight gain, abnormal R63.5 [facility] [address] [place] [address] 05 Dec, 2015 Migraine with aura and witho ut status migrainosus, not intractable G43.109 ; Acute upper respiratory infection, unspecified J06.9 ; Other viral agents as the cause of diseases classified elsewhere B97.89 ; Pain in right knee M25.561 ; Obstructive sleep apnea G47.33 and Weight gain, abnormal R63.5 [facility] [address] [id number] [address] [place] [phone] Sep, Encounter for immunization Z 23 [facility] [address] [id number] [address] [place] [phone] 18 Sep, 2015 Dysthymic disorder F34.1 and Anxiety disorder, unspecified F41.9 [facility] [address] [id number] [address] [place] [phone] Sep, Anxiety disorder, unspecifie d F41.9 and Major depression single episode, 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 [facility] [id number] [place] [address] [id number] Sep, Dental examination Z01.20 [facility] [address] [phone] Aug, Dysthymic disorder F34.1 and Anxiety disorder, unspecified F41.9 [facility] [address] [id number] [address] [place] [phone] Jul, Dysthymic disorder 300.4 and Anxiety state, unspecified 300.00 [facility] [address] [id number] [address] [place] [address] Jun, Anxiety state, unspecified 3 00.00 and Depression, major, recurrent, 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.35 [facility] [address] [id number] [address] [place] [phone] Jun, Dysthymic disorder 300.4 and Anxiety state, unspecified 300.00 [facility] [address] [id number] [address] [place] [phone] May, Anxiety state, unspecified 3 00.00 and Depression, major, recurrent, 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.35 [facility] [address] [id number] [address] [place] [phone] Apr, Dysthymic disorder 300.4 and Anxiety disorder, unspecified 300.00 [facility] [address] [id number] [address] [place] [phone] March, Anxiety state, unspecified 3 00.00 and Moderate recurrent major depression 296.32 [facility] [address] [facility] [id number] [place] [address] [id number] March, Shortness of breath 786.05 [facility] [address] [facility] [id number] [place] [address] [id number] March, Routine sports physical exam V70.3 ; Exercise counseling V65.41 ; Dietary counseling V65.3 and Shortness of breath 786.05 [facility] [address] [id number] [address] [place] [phone] March, Dysthymic disorder 300.4 and Anxiety disorder 300.00 [facility] [address] [facility] [id number] [address] [place] [phone] Feb, [facility] [address] [facility] [id number] [address] [place] [id number] Feb, [facility] [address] [facility] [id number] [address] [place] [phone] Jan, [facility] [address] [facility] [id number] [address] [place] [phone] Jan, [facility] [address] [facility] [id number] [address] [place] [phone] Dec, [facility] [address] [facility] [id number] [address] [place] [phone] Dec, [facility] [address] [facility] [id number] [address] [place] [phone] Dec, [facility] [address] [facility] [id number] [address] [place] [phone] Dec, [facility] [address] [facility] [id number] [address] [place] [phone] Nov, [facility] [address] [facility] [id number] [address] [place] [phone] Nov, [facility] [address] [facility] [id number] [address] [place] [phone] Nov, [facility] [address] [id number] [address] [place] [address], [place] [address] Nov, [facility] [address] [id number] [address] [place] [address], [place] [address] Sep, [facility] [address] [id number] [address] [place] [address], [place] [address] Sep, [facility] [address] [id number] [address] [place] [address], [place] [address] Oct, [facility] [address] [id number] [address] [place] [address], [place] [address] Oct, [facility] [address] [id number] [address] [place] [address], [place] [address] Oct, [facility] [address] [id number] [address] [place] [address], [place] [address] Oct, [facility] [address] [id number] [address] [place] [address], [place] [address] Sep, [facility] [address] [id number] [address] [place] [address], [place] [address] 18 Sep, 2013 [facility] [address] [id number] [address] [place] [address], [place] [address] 16 Sep, 2013 [facility] [address] [id number] [address] [place] [address], [place] [address] 15 Sep, 2013 [facility] [address] [id number] [address] [place] [phone] 15 Sep, 2013 [facility] [address] [id number] [address] [place] [address], [place] [address] Aug, [facility] [address] [id number] [address] [place] [address], [place] [address] Aug, [facility] [address] [id number] [address] [place] [address], [place] [address] Jul, [facility] [address] [id number] [address] [place] [phone] Jun, [facility] [address] [facility] [id number] [address] [place] [id number] March, [facility] [address] [facility] [id number] [address] [place] [phone] Feb, IMMUNIZATIONS No Known Immunizations SOCIAL HISTORY Never Assessed REASON FOR VISIT ear pain-the patient was here on the and was diagnosed with double ear infe ctions and was given antibiotics. The patient is done with the antibiotics and is still having ear pain worse on the right side.--CRUZITO Witt PLAN OF CARE Activity Details Follow Up 1 Week, prn Reason:if sympto ms worsen or not improving VITAL SIGNS Height 61 in 2018-06-15 Weight 195.4 lbs 2018-06-15 Temperature 97.7 degrees Fahrenheit 2018-06-15 Heart Rate 104 bpm 2018-06-15 Respiratory Rate 18 2018-06-15 BMI 36.92 kg/m2 2018-06-15 Blood pressure systolic 94 mmHg 2018-06-15 Blood pressure diastolic 68 mmHg 2018-06-15 MEDICATIONS Medication Instructions Dosage Frequency Start Date End Date Duration S tatus Fluticasone Propionate 50 MCG/ACT Nasally Once a day 1 spray in each nostril 24h May, 30 day(s) Active Augmentin 875-125 MG Orally every 12 hrs 1 tablet 12h May, 2 018 24 May, 2018 07 days Active Ketotifen Fumarate 0.025 % Ophthalmic Twice a day 1 drop into affec barbara eye 12h May, 07 days Active Cetirizine HCl 10 mg Orally Once a day 1 tablet 24h May, 201 8 16 Jun, 2018 30 day(s) Active RESULTS No Results PROCEDURES No Known procedures INSTRUCTIONS MEDICATIONS ADMINISTERED No Known Medications MEDICAL (GENERAL) HISTORY Type Description Date Medical History obesity Medical History fx right tib/fib 2016 Surgical History bladder stretched 2010 Surgical History T & A 2008
--- OUTSIDE RECORDS SUMMARY | 2020-04-01 12:49 | XMS REPORT ---
Author Author Lianne CHAVEZ [facility] Address [address] [place] [address] Care Team Providers Care Supervisor Firearms Name Role Phone SINGH CHAVEZ Unavailable PROBLEMS Type Condition ICD9-CM Code [id number] Code Onset Dates Condition S tatus SNOMED Code Problem Anxiety disorder, unspecified F41.9 Active 291263031 Problem Dysthymic disorder F34.1 Active 7 [id number] ALLERGIES No Information ENCOUNTERS Encounter Location Date Diagnosis [facility] [address] [facility] [id number] [address] [place] [phone] March, Dysthymic disorder F34.1 and Anxiety disorder, unspecified F41.9 [facility] [address] [facility] [id number] [address] [place] [phone] Feb, [facility] [address] [facility] [id number] [address] [place] [phone] Feb, Dysthymic disorder F34.1 and Anxiety disorder, unspecified F41.9 [facility] [address] [facility] [id number] [address] [place] [phone] Feb, Dysthymic disorder F34.1 and Anxiety disorder, unspecified F41.9 [facility] [address] [facility] [id number] [address] [place] [address] [id number] Jan, Encounter for immunization Z 23 [facility] [address] [facility] [id number] [address] [place] [address] [id number] Jan, Skin infection L08.9 [facility] [address] [facility] [id number] [address] [place] [address] [id number] Dec, Non-recurrent acute suppurat pasha otitis media of right ear without spontaneous rupture of tympanic membrane H66.001 [facility] [address] [place] [id number] [place] [address] [id number] 05 Dec, 2018 Paronychia of finger of righ t hand L03.011 [facility] [address] [place] [id number] [address] [place] [id number] 17 May, 2018 Right acute serous otitis me rohit, recurrence not specified H65.01 and Seasonal allergic conjunctivitis H10.10 [facility] [address] [place] [id number] [address] [place] [id number] 11 May, 2018 Acute mucoid otitis media of left ear H65.112 [facility] [address] [place] [address] [id number] 16 Mar, 2018 Sports physical Z02.5 ; Exer cise counseling Z71.89 and Dietary counseling Z71.[address] [id number] 07 Jan, 2018 Encounter for immunization Z 23 [facility] [address] [id number] 15 Dec, 2017 Sprain of calcaneofibular li gament of left ankle, initial encounter S93.412A [facility] [address] [place] [address] [id number] 06 Jul, 2017 Encounter for immunization Z [address] [id number] 10 Mar, 2017 Sports physical Z02.5 ; Exer cise counseling Z71.89 and Dietary counseling Z71.3 [facility] [address] [facility] [id number] [address] [place] [id number] 14 Jan, 2017 Body aches R52 and Influenza A J10.[id number] [place] [address] [id number] 10 Sep, 2016 Dental examination Z01.20 [facility] [address] [id number] [address] [place] [address] [id number] 08 Sep, 2016 Dental examination Z01.20 [facility] [address] [place] [address] [id number] [place] [address] [id number] March, Sports physical Z02.5 ; Exer cise counseling Z71.89 ; Dietary counseling Z71.3 and Obesity due to excess calories, unspecified obesity severity E66.09 [facility] [address] [place] [id number] [place] [address] [id number] Feb, Encounter for immunization Z 23 [place] [address] [id number] Jan, Pain in right knee M25.561 [place] [address] [id number] Jan, 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 [place] [address] [id number] 08 Dec, 2015 Weight gain, abnormal R63.5 [place] [address] [id number] 05 Dec, 2015 Migraine with aura and witho ut status migrainosus, not intractable G43.109 ; Acute upper respiratory infection, unspecified J06.9 ; Other viral agents as the cause of diseases classified elsewhere B97.89 ; Pain in right knee M25.561 ; Obstructive sleep apnea G47.33 and Weight gain, abnormal R63.5 [place] [address] [place] [phone] Sep, Encounter for immunization Z 23 [facility] [address] [place] [address] [id number] [address] [place] [phone] Sep, Dysthymic disorder F34.1 and Anxiety disorder, unspecified F41.9 [place] [address] [place] [id number] [address] [place] [phone] Sep, Anxiety disorder, unspecifie d F41.9 and Major depression single episode, 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 [facility] [address] [place] [address] [id number] [address] [place] [address] [id number] Sep, Dental examination Z01.20 [place] [address] [id number] Aug, Dysthymic disorder F34.1 and Anxiety disorder, unspecified F41.9 [place] [address] [place] [id number] [address] [place] [id number] Jul, Dysthymic disorder 300.4 and Anxiety state, unspecified 300.00 [place] [address] [id number] Jun, Anxiety state, unspecified 3 00.00 and Depression, major, recurrent, 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.35 [place] [address] [id number] Jun, Dysthymic disorder 300.4 and Anxiety state, unspecified 300.00 [place] [address] [id number] May, Anxiety state, unspecified 3 00.00 and Depression, major, recurrent, 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.35 [place] [address] [id number] Apr, Dysthymic disorder 300.4 and Anxiety disorder, unspecified 300.00 [place] [address] [place] [id number] [address] [place] [id number] March, Anxiety state, unspecified 3 00.00 and Moderate recurrent major depression 296.32 [facility] [place] [address] [place] [id number] [place] [address] [id number] March, Shortness of breath 786.05 [facility] [address] [id number] March, Routine sports physical exam V70.3 ; Exercise counseling V65.41 ; Dietary counseling V65.3 and Shortness of breath 786.05 [place] [address] [place] [id number] [address] [place] [id number] March, Dysthymic disorder 300.4 and Anxiety disorder 300.00 [facility] [address] [id number] [address] [place] [address], [place] [phone] Feb, [facility] [address] [id number] [address] [place] [address], [place] [phone] Feb, [facility] [address] [id number] [address] [place] [address], [place] [phone] Jan, [facility] [address] [id number] [address] [place] [address], [place] [phone] Jan, [facility] [address] [id number] [address] [place] [address], [place] [phone] Dec, [facility] [address] [id number] [address] [place] [address], [place] [id number] Dec, [facility] [address] [id number] [address] [place] [address], [place] [phone] Dec, [facility] [address] [id number] [address] [place] [address], [place] [id number] Dec, [facility] [address] [id number] [address] [place] [address], [place] [phone] Nov, [facility] [address] [id number] [address] [place] [address], [place] [phone] Nov, [facility] [address] [id number] [address] [place] [phone] Nov, [facility] [address] [id number] [address] [place] [phone] Nov, [facility] [address] [id number] [address] [place] [address], [place] [id number] Sep, [facility] [address] [id number] [address] [place] [phone] Sep, [facility] [address] [id number] [address] [place] [address], [place] [id number] Oct, [facility] [address] [id number] [address] [place] [phone] Oct, [facility] [address] [id number] [address] [place] [phone] Oct, [facility] [address] [id number] [address] [place] [phone] Oct, [facility] [address] [id number] [address] [place] [phone] Sep, [facility] [address] [id number] [address] [place] [phone] Sep, [facility] [address] [id number] [address] [place] [phone] Sep, [facility] [address] [id number] [address] [place] [phone] Sep, [facility] [address] [id number] [address] [place] [phone] Sep, [facility] [address] [id number] [address] [place] [phone] Aug, [facility] [address] [id number] [address] [place] [phone] Aug, [facility] [address] [id number] [address] [place] [phone] Jul, [facility] [address] [id number] [address] [place] [phone] Jun, [facility] [address] [id number] [address] [place] [phone] March, [facility] [address] [id number] [address] [place] [phone] Feb, IMMUNIZATIONS No Known Immunizations SOCIAL HISTORY Never Assessed REASON FOR VISIT PLAN OF CARE VITAL SIGNS MEDICATIONS Unknown Medications RESULTS No Results PROCEDURES Procedure Date Ordered Result Body Site PSYTX PT&/FAMILY 45 MINUTES Jan 23, 2015 INSTRUCTIONS MEDICATIONS ADMINISTERED No Known Medications MEDICAL (GENERAL) HISTORY Type Description Date Medical History obesity Medical History fx right tib/fib 2016 Medical History endometriosis Medical History PCOS (Polycystic Ovary Syndrome) Surgical History bladder stretched 2010 Surgical History T & A 2009
--- OUTSIDE RECORDS SUMMARY | 2020-04-01 12:49 | XMS REPORT ---
Author Author Jayme Lianne Doctor Organization [facility] Address Unknown Phone Unavailable Care Team Providers Care New Car Make Ready Mechanic Name Role Phone Migration, Doctor Unavailable Unavailable PROBLEMS Type Condition ICD9-CM Code [id number] Code Onset Dates Condition S tatus SNOMED Code Problem Anxiety disorder, unspecified F41.9 Active 592427627 Problem Dysthymic disorder F34.1 Active 7 2019447 ALLERGIES No Information ENCOUNTERS Encounter Location Date Diagnosis [facility] [address] [place] [id number] [address] [place] [phone] Feb, [facility] [place] [address] [id number] Jan, Encounter for immunization Z 23 [facility] [place] [address] [id number] Jan, Skin infection L08.9 [facility] [address] [id number] Dec, Non-recurrent acute suppurat pasha otitis media of right ear without spontaneous rupture of tympanic membrane H66.001 [facility] [address] [id number] Dec, Paronychia of finger of righ t hand L03.011 [facility] [address] [place] [id number] [address] [place] [phone] May, Right acute serous otitis me rohit, recurrence not specified H65.01 and Seasonal allergic conjunctivitis H10.10 [facility] [address] [place] [id number] [address] [place] [id number] May, Acute mucoid otitis media of left ear H65.112 [facility] [address] [id number] March, Sports physical Z02.5 ; Exer cise counseling Z71.89 and Dietary counseling Z71.3 [facility] [address] [id number] [place] [address] [id number] 07 Jan, 2018 Encounter for immunization Z 23 [facility] [address] [id number] [place] [address] [id number] 15 Dec, 2017 Sprain of calcaneofibular li gament of left ankle, initial encounter S93.412A [facility] [address] [id number] [address] [place] [address] [id number] 06 Jul, 2017 Encounter for immunization Z 23 [facility] [address] [facility] [id number] [address] [place] [address] [id number] 10 Mar, 2017 Sports physical Z02.5 ; Exer cise counseling Z71.89 and Dietary counseling Z71.3 [facility] [address] [facility] [id number] [address] [place] [id number] 14 Jan, 2017 Body aches R52 and Influenza A J10.1 [facility] [address] [id number] [id number] 10 Sep, 2016 Dental examination Z01.20 [facility] [address] [place] [address] [id number] [address] [place] [address] [id number] 08 Sep, 2016 Dental examination Z01.20 [facility] [address] [facility] [id number] [place] [address] [id number] 18 Mar, 2016 Sports physical Z02.5 ; Exer cise counseling Z71.89 ; Dietary counseling Z71.3 and Obesity due to excess calories, unspecified obesity severity E66.09 [facility] [address] [facility] [id number] [place] [address] [id number] Feb, Encounter for immunization Z 23 [facility] [address] [facility] [id number] [address] [place] [id number] 09 Jan, 2016 Pain in right knee M25.561 [facility] [address] [facility] [id number] [address] [place] [id number] 03 Jan, 2016 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 [facility] [address] [place] [id number] [address] [place] [id number] 08 Dec, 2015 Weight gain, abnormal R63.5 [place] [address] [place] [id number] [address] [place] [id number] 05 Dec, 2015 Migraine with aura and witho ut status migrainosus, not intractable G43.109 ; Acute upper respiratory infection, unspecified J06.9 ; Other viral agents as the cause of diseases classified elsewhere B97.89 ; Pain in right knee M25.561 ; Obstructive sleep apnea G47.33 and Weight gain, abnormal R63.5 [place] [address] [id number] 24 Sep, 2015 Encounter for immunization Z 23 [place] [address] [id number] 18 Sep, 2015 Dysthymic disorder F34.1 and Anxiety disorder, unspecified F41.9 [place] [address] [place] [id number] [address] [place] [id number] 17 Sep, 2015 Anxiety disorder, unspecifie d F41.9 and Major depression single episode, 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 [facility] [address] [place] [id number] [address] [place] [address] [id number] Sep, Dental examination Z01.20 [place] [address] [place] [id number] [address] [place] [phone] Aug, Dysthymic disorder F34.1 and Anxiety disorder, unspecified F41.9 [place] [address] [place] [id number] [place] [id number] 30 Jul, 2015 Dysthymic disorder 300.4 and Anxiety state, unspecified 300.00 [place] [address] [place] [id number] [place] [id number] 14 Jun, 2015 Anxiety state, unspecified 3 00.00 and Depression, major, recurrent, 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.35 [place] [address] [place] [id number] [address] [place] [id number] Jun, Dysthymic disorder 300.4 and Anxiety state, unspecified 300.00 [facility] [address] [id number] [address] [place] [id number] May, Anxiety state, unspecified 3 00.00 and Depression, major, recurrent, 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.35 [facility] [address] [id number] [address] [place] [id number] Apr, Dysthymic disorder 300.4 and Anxiety disorder, unspecified 300.00 [facility] [address] [id number] [address] [place] [id number] March, Anxiety state, unspecified 3 00.00 and Moderate recurrent major depression 296.32 [facility] [address] [id number] [place] [address] [id number] March, Shortness of breath 786.05 [facility] [address] [facility] [id number] [address] [place] [address] [id number] March, Routine sports physical exam V70.3 ; Exercise counseling V65.41 ; Dietary counseling V65.3 and Shortness of breath 786.05 [facility] [address] [id number] [address] [place] [id number] March, Dysthymic disorder 300.4 and Anxiety disorder 300.00 [facility] [address] [id number] [address] [place] [id number] Feb, [facility] [address] [id number] [address] [place] [id number] Feb, [facility] [address] [id number] [address] [place] [phone] Jan, [facility] [address] [facility] [id number] [address] [place] [phone] Jan, [facility] [address] [facility] [id number] [address] [place] [phone] Dec, [facility] [address] [id number] [address] [place] [address], [place] [phone] Dec, [facility] [address] [id number] [address] [place] [address], [place] [id number] Dec, [facility] [address] [id number] [address] [place] [address], [place] [id number] Dec, [facility] [address] [id number] [address] [place] [address], [place] [id number] Nov, [facility] [address] [id number] [address] [place] [address], [place] [id number] Nov, [facility] [address] [id number] [address] [place] [address], [place] [id number] Nov, [facility] [address] [id number] [address] [place] [address], [place] [id number] Nov, [facility] [address] [id number] [address] [place] [address], [place] [id number] Sep, [facility] [address] [id number] [address] [place] [address], [place] [id number] Sep, [facility] [address] [id number] [address] [place] [address], [place] [id number] Oct, [facility] [address] [id number] [address] [place] [address], [place] [id number] 30 Oct, 2013 [facility] [address] [id number] [address] [place] [address], [place] [id number] 05 Oct, 2013 [facility] [address] [id number] [address] [place] [address], [place] [id number] 05 Oct, 2013 [facility] [address] [id number] [address] [place] [address], [place] [id number] 18 Sep, 2013 [facility] [address] [id number] [address] [place] [address], [place] [id number] 18 Sep, 2013 [facility] [address] [id number] [address] [place] [address], [place] [id number] 16 Sep, 2013 [facility] [address] [id number] [address] [place] [phone] Sep, [facility] [address] [id number] [address] [place] [phone] Sep, [facility] [address] [id number] [address] [place] [phone] Aug, [facility] [address] [id number] [address] [place] [phone] Aug, [facility] [address] [id number] [address] [place] [phone] Jul, [facility] [address] [id number] [address] [place] [id number] Jun, [facility] [address] [id number] [address] [place] [phone] March, [facility] [address] [id number] [address] [place] [phone] Feb, IMMUNIZATIONS No Known Immunizations SOCIAL HISTORY Never Assessed REASON FOR VISIT EMR-[facility] PLAN OF CARE VITAL SIGNS MEDICATIONS Medication Instructions Dosage Frequency Start Date End Date Duration S tatus Bactroban 2 % 1 arnulfo by Topical rou te 2 times per day for 14 day(s) apply to skin lesion Jun, Active Bactrim DS 800-160 mg 1 tablet by Oral route 2 times p er day for 10 day(s) Jun, Active RESULTS No Results PROCEDURES No Known procedures INSTRUCTIONS MEDICATIONS ADMINISTERED No Known Medications MEDICAL (GENERAL) HISTORY Type Description Date Medical History obesity Medical History fx right tib/fib 2016 Surgical History bladder stretched 2010 Surgical History T & A 2008
--- OUTSIDE RECORDS SUMMARY | 2020-04-01 12:49 | XMS REPORT ---
Author Author Lianne MATTSON Organization [facility] Address [address] [place] [address] Care Team Providers Care Disaster Recovery Analyst Name Role Phone TWILA EARL Unavailable PROBLEMS Type Condition ICD9-CM Code [id number] Code Onset Dates Condition S tatus SNOMED Code Problem Dysthymic disorder F34.1 Active 7 0665387 Problem Anxiety disorder, unspecified F41.9 Active [id number] ALLERGIES No Known Allergies ENCOUNTERS Encounter Location Date Diagnosis [facility] [address] [facility] [id number] [address] [place] [id number] May, Right acute serous otitis me rohit, recurrence not specified H65.01 and Seasonal allergic conjunctivitis H10.10 [facility] [address] [facility] [id number] [address] [place] [phone] May, Acute mucoid otitis media of left ear H65.112 [facility] [id number] [place] [address] [id number] March, Sports physical Z02.5 ; Exer cise counseling Z71.89 and Dietary counseling Z71.3 [facility] [id number] [place] [address] [id number] Jan, Encounter for immunization Z 23 [facility] [id number] [place] [address] [id number] Dec, Sprain of calcaneofibular li gament of left ankle, initial encounter S93.412A [facility] [id number] [place] [address] [id number] Jul, Encounter for immunization Z 23 [facility] [id number] [place] [address] [id number] March, Sports physical Z02.5 ; Exer cise counseling Z71.89 and Dietary counseling Z71.3 [facility] [address] [facility] [id number] [address] [place] [phone] 14 Jan, 2017 Body aches R52 and Influenza A J10.1 [facility] [address] [id number] [id number] 10 Sep, 2016 Dental examination Z01.20 [facility] [address] [id number] [place] [id number] 08 Sep, 2016 Dental examination Z01.20 [facility] [address] [facility] [id number] [place] [id number] 18 Mar, 2016 Sports physical Z02.5 ; Exer cise counseling Z71.89 ; Dietary counseling Z71.3 and Obesity due to excess calories, unspecified obesity severity E66.09 [facility] [address] [id number] [place] [address] [id number] Feb, Encounter for immunization Z 23 [facility] [address] [id number] [address] [place] [id number] 09 Jan, 2016 Pain in right knee M25.561 [place] [address] [address] 03 Jan, 2016 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 [facility] [address] [place] [phone] 08 Dec, 2015 Weight gain, abnormal R63.5 [facility] [address] [place] [id number] 05 Dec, 2015 Migraine with aura and witho ut status migrainosus, not intractable G43.109 ; Acute upper respiratory infection, unspecified J06.9 ; Other viral agents as the cause of diseases classified elsewhere B97.89 ; Pain in right knee M25.561 ; Obstructive sleep apnea G47.33 and Weight gain, abnormal R63.5 [facility] [address] [id number] [address] [place] [address] Sep, Encounter for immunization Z 23 [facility] [address] [id number] [address] [place] [id number] 18 Sep, 2015 Dysthymic disorder F34.1 and Anxiety disorder, unspecified F41.9 [facility] [address] [id number] [address] [place] [phone] Sep, Anxiety disorder, unspecifie d F41.9 and Major depression single episode, 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 [facility] [id number] [place] [address] [id number] Sep, Dental examination Z01.20 [facility] [address] [address] Aug, Dysthymic disorder F34.1 and Anxiety disorder, unspecified F41.9 [facility] [address] [address] [id number] [address] [place] [phone] Jul, Dysthymic disorder 300.4 and Anxiety state, unspecified 300.00 [facility] [address] [address] [id number] [address] [place] [phone] Jun, Anxiety state, unspecified 3 00.00 and Depression, major, recurrent, 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.35 [facility] [address] [id number] [address] [place] [phone] Jun, Dysthymic disorder 300.4 and Anxiety state, unspecified 300.00 [facility] [address] [address] [id number] [address] [place] [phone] May, Anxiety state, unspecified 3 00.00 and Depression, major, recurrent, 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.35 [facility] [address] [id number] [address] [place] [phone] Apr, Dysthymic disorder 300.4 and Anxiety disorder, unspecified 300.00 [facility] [address] [place] [address] [id number] [address] [place] [phone] March, Anxiety state, unspecified 3 00.00 and Moderate recurrent major depression 296.32 [facility] [address] [facility] [id number] [place] [address] [id number] March, Shortness of breath 786.05 [facility] [address] [facility] [id number] [place] [address] [id number] March, Routine sports physical exam V70.3 ; Exercise counseling V65.41 ; Dietary counseling V65.3 and Shortness of breath 786.05 [facility] [address] [id number] [address] [place] [phone] March, Dysthymic disorder 300.4 and Anxiety disorder 300.00 [facility] [address] [facility] [id number] [address] [place] [phone] Feb, [facility] [address] [facility] [id number] [address] [place] [phone] Feb, [facility] [address] [facility] [id number] [address] [place] [phone] Jan, [facility] [address] [facility] [id number] [address] [place] [phone] Jan, [facility] [address] [facility] [id number] [address] [place] [phone] Dec, [facility] [address] [facility] [id number] [address] [place] [phone] Dec, [facility] [address] [facility] [id number] [address] [place] [phone] Dec, [facility] [address] [facility] [id number] [address] [place] [phone] Dec, [facility] [address] [facility] [id number] [address] [place] [phone] Nov, [facility] [address] [facility] [id number] [address] [place] [phone] Nov, [facility] [address] [facility] [id number] [address] [place] [phone] Nov, [facility] [address] [id number] [address] [place] [address], [place] [address] Nov, [facility] [address] [id number] [address] [place] [address], [place] [address] Sep, [facility] [address] [id number] [address] [place] [address], [place] [address] Sep, [facility] [address] [id number] [address] [place] [address], [place] [address] Oct, [facility] [address] [id number] [address] [place] [address], [place] [address] Oct, [facility] [address] [id number] [address] [place] [address], [place] [address] Oct, [facility] [address] [id number] [address] [place] [address], [place] [address] Oct, [facility] [address] [id number] [address] [place] [address], [place] [address] Sep, [facility] [address] [id number] [address] [place] [address], [place] [address] 18 Sep, 2013 [facility] [address] [id number] [address] [place] [address], [place] [address] 16 Sep, 2013 [facility] [address] [id number] [address] [place] [address], [place] [address] 15 Sep, 2013 [facility] [address] [id number] [address] [place] [phone] 15 Sep, 2013 [facility] [address] [id number] [address] [place] [address], [place] [address] Aug, [facility] [address] [id number] [address] [place] [address], [place] [address] Aug, [facility] [address] [id number] [address] [place] [address], [place] [address] Jul, [facility] [address] [id number] [address] [place] [phone] Jun, [facility] [address] [facility] [id number] [address] [place] [phone] March, [facility] [address] [facility] [id number] [address] [place] [phone] Feb, IMMUNIZATIONS No Known Immunizations SOCIAL HISTORY Never Assessed REASON FOR VISIT ear pain/sore throat-Sore throat x 5 days with congestion, drainage and runny no se. Lt ear pain x 2 days with unknown fever.--CRUZITO Witt PLAN OF CARE Activity Details Follow Up 1 Week, prn Reason:if sympto ms worsen or not improving VITAL SIGNS Height 61 in 2018-06-09 Weight 193.4 lbs 2018-06-09 Temperature 97.8 degrees Fahrenheit 2018-06-09 Heart Rate 92 bpm 2018-06-09 Respiratory Rate 18 2018-06-09 BMI 36.54 kg/m2 2018-06-09 Blood pressure systolic 98 mmHg 2018-06-09 Blood pressure diastolic 60 mmHg 2018-06-09 MEDICATIONS Medication Instructions Dosage Frequency Start Date End Date Duration S tatus Amoxicillin 500 mg Orally every 8 hrs 2 capsules 8h May, 201 8 16 May, 2018 05 days Active RESULTS No Results PROCEDURES No Known procedures INSTRUCTIONS MEDICATIONS ADMINISTERED No Known Medications MEDICAL (GENERAL) HISTORY Type Description Date Medical History obesity Medical History fx right tib/fib 2016 Surgical History bladder stretched 2010 Surgical History T & A 2008
--- OUTSIDE RECORDS SUMMARY | 2020-04-01 12:49 | XMS REPORT ---
Author Author Lianne CHAVEZ [facility] Address [address] [place] [address] Care Team Providers Care Rooms Director Name Role Phone SINGH CHAVEZ Unavailable PROBLEMS Type Condition ICD9-CM Code [id number] Code Onset Dates Condition S tatus SNOMED Code Problem Anxiety disorder, unspecified F41.9 Active [id number] Problem Dysthymic disorder F34.1 Active 7 7908912 ALLERGIES No Information ENCOUNTERS Encounter Location Date Diagnosis [facility] [address] [facility] [id number] [address] [place] [phone] March, Dysthymic disorder F34.1 and Anxiety disorder, unspecified F41.9 [facility] [address] [facility] [id number] [address] [place] [phone] Feb, [facility] [address] [facility] [id number] [address] [place] [phone] Feb, Dysthymic disorder F34.1 and Anxiety disorder, unspecified F41.9 [facility] [address] [facility] [id number] [address] [place] [phone] Feb, Dysthymic disorder F34.1 and Anxiety disorder, unspecified F41.9 [facility] [address] [facility] [id number] [address] [place] [address] [id number] Jan, Encounter for immunization Z 23 [facility] [address] [facility] [id number] [address] [place] [address] [id number] Jan, Skin infection L08.9 [facility] [address] [facility] [id number] [address] [place] [address] [id number] Dec, Non-recurrent acute suppurat pasha otitis media of right ear without spontaneous rupture of tympanic membrane H66.001 [facility] [address] [address] [id number] [place] [address] [id number] 05 Dec, 2018 Paronychia of finger of righ t hand L03.011 [facility] [address] [place] [id number] [address] [place] [address] 17 May, 2018 Right acute serous otitis me rohit, recurrence not specified H65.01 and Seasonal allergic conjunctivitis H10.10 [facility] [address] [place] [id number] [address] [place] [phone] 11 May, 2018 Acute mucoid otitis media of left ear H65.112 [facility] [address] [place] [address] [id number] 16 Mar, 2018 Sports physical Z02.5 ; Exer cise counseling Z71.89 and Dietary counseling Z71.[address] [id number] 07 Jan, 2018 Encounter for immunization Z 23 [facility] [address] [id number] 15 Dec, 2017 Sprain of calcaneofibular li gament of left ankle, initial encounter S93.412A [facility] [address] [place] [address] [id number] 06 Jul, 2017 Encounter for immunization Z [address] [id number] 10 Mar, 2017 Sports physical Z02.5 ; Exer cise counseling Z71.89 and Dietary counseling Z71.3 [facility] [address] [facility] [id number] [address] [place] [phone] 14 Jan, 2017 Body aches R52 and Influenza A J10.[id number] [place] [address] [id number] 10 Sep, 2016 Dental examination Z01.20 [facility] [address] [id number] [address] [place] [address] [id number] 08 Sep, 2016 Dental examination Z01.20 [facility] [address] [place] [id number] [place] [address] [id number] March, Sports physical Z02.5 ; Exer cise counseling Z71.89 ; Dietary counseling Z71.3 and Obesity due to excess calories, unspecified obesity severity E66.09 [facility] [address] [place] [id number] [place] [address] [id number] Feb, Encounter for immunization Z 23 [place] [address] [address] Jan, Pain in right knee M25.561 [place] [address] [address] Jan, 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 [place] [address] [id number] 08 Dec, 2015 Weight gain, abnormal R63.5 [place] [address] [address] 05 Dec, 2015 Migraine with aura and witho ut status migrainosus, not intractable G43.109 ; Acute upper respiratory infection, unspecified J06.9 ; Other viral agents as the cause of diseases classified elsewhere B97.89 ; Pain in right knee M25.561 ; Obstructive sleep apnea G47.33 and Weight gain, abnormal R63.5 [place] [address] [place] [address] Sep, Encounter for immunization Z 23 [facility] [address] [place] [id number] [address] [place] [address] Sep, Dysthymic disorder F34.1 and Anxiety disorder, unspecified F41.9 [place] [address] [place] [id number] [address] [place] [phone] Sep, Anxiety disorder, unspecifie d F41.9 and Major depression single episode, 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 [facility] [address] [address] [id number] [place] [address] [id number] Sep, Dental examination Z01.20 [place] [address] [address] Aug, Dysthymic disorder F34.1 and Anxiety disorder, unspecified F41.9 [place] [address] [place] [id number] [address] [place] [address] Jul, Dysthymic disorder 300.4 and Anxiety state, unspecified 300.00 [place] [address] [address] Jun, Anxiety state, unspecified 3 00.00 and Depression, major, recurrent, 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.35 [place] [address] [address] Jun, Dysthymic disorder 300.4 and Anxiety state, unspecified 300.00 [place] [address] [address] May, Anxiety state, unspecified 3 00.00 and Depression, major, recurrent, 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.35 [place] [address] [address] Apr, Dysthymic disorder 300.4 and Anxiety disorder, unspecified 300.00 [place] [address] [place] [id number] [address] [place] [address] March, Anxiety state, unspecified 3 00.00 and Moderate recurrent major depression 296.32 [facility] [place] [address] [place] [id number] [place] [address] [id number] March, Shortness of breath 786.05 [facility] [address] [id number] March, Routine sports physical exam V70.3 ; Exercise counseling V65.41 ; Dietary counseling V65.3 and Shortness of breath 786.05 [place] [address] [place] [id number] [address] [place] [phone] March, Dysthymic disorder 300.4 and Anxiety disorder 300.00 [facility] [address] [id number] [address] [place] [address], [place] [address] Feb, [facility] [address] [id number] [address] [place] [address], [place] [address] Feb, [facility] [address] [id number] [address] [place] [address], [place] [address] Jan, [facility] [address] [id number] [address] [place] [address], [place] [address] Jan, [facility] [address] [id number] [address] [place] [address], [place] [address] Dec, [facility] [address] [id number] [address] [place] [address], [place] [address] Dec, [facility] [address] [id number] [address] [place] [address], [place] [address] Dec, [facility] [address] [id number] [address] [place] [address], [place] [address] Dec, [facility] [address] [id number] [address] [place] [address], [place] [address] Nov, [facility] [address] [id number] [address] [place] [address], [place] [address] Nov, [facility] [address] [id number] [address] [place] [phone] Nov, [facility] [address] [id number] [address] [place] [address] Nov, [facility] [address] [id number] [address] [place] [address], [place] [address] Sep, [facility] [address] [id number] [address] [place] [address] Sep, [facility] [address] [id number] [address] [place] [address], [place] [address] Oct, [facility] [address] [id number] [address] [place] [address] Oct, [facility] [address] [id number] [address] [place] [phone] Oct, [facility] [address] [id number] [address] [place] [phone] Oct, [facility] [address] [id number] [address] [place] [phone] Sep, [facility] [address] [id number] [address] [place] [address] Sep, [facility] [address] [id number] [address] [place] [phone] Sep, [facility] [address] [id number] [address] [place] [address] Sep, [facility] [address] [id number] [address] [place] [address] Sep, [facility] [address] [id number] [address] [place] [address] Aug, [facility] [address] [id number] [address] [place] [address] Aug, [facility] [address] [id number] [address] [place] [phone] Jul, [facility] [address] [id number] [address] [place] [address] Jun, [facility] [address] [id number] [address] [place] [address] March, [facility] [address] [id number] [address] [place] [address] Feb, IMMUNIZATIONS No Known Immunizations SOCIAL HISTORY [...]
--- OUTSIDE RECORDS SUMMARY | 2020-04-01 12:50 | XMS REPORT | Continuity of Care Document ---
Author Organization Unknown Address Unknown Phone Unavailable Allergies Active Description Code Type Severity Reaction Onset Reported/Identified Relationship to Patient Clinical Status Yes No Known Drug Allergies [id number] Drug Allergy Unknown N/A 06/10/2010 Medications There is no data. Problems Date Dx Coded Attending Type Code Diagnosis Diagnosed By 05/23/2011 Ot 881.02 OPE N WOUND OF WRIST 05/23/2011 Ot 883.0 OPEN WOUND OF FINGER 05/23/2011 Ot 959.5 FING ER INJURY NOS 05/23/2011 Ot E000.8 OT ER EXTERNAL CAUSE STATUS 05/23/2011 Ot E001.0 ACT IVITIES INVOLVING WALKING, MARCHING A 05/23/2011 Ot E849.0 ACC IDENT IN HOME 05/23/2011 Ot E880.9 FAL L ON STAIR/STEP NEC 05/23/2011 Ot E920.8 ACC -CUTTING INSTRUM NEC 03/11/2013 V06.1 TDAP DX 03/11/2013 [...] V06.1 TDAP DX 03/11/2013 WILLIAMS LAY APRN V06 .1 TDAP DX 03/11/2013 SCOTT PHD, SINGH A V06.1 TDAP DX 04/21/2013 V70.3 SPOR TS PHYSICAL 04/21/2013 LUZ ZHAO APRN V70.3 SPORTS PHYSICAL 04/21/2013 NONI ORDOÑEZ MD V70.3 SPORTS PHYSICAL 04/21/2013 SMITA RICE, NONI V70.3 SPORTS PHYSICAL 04/21/2013 BOENEREYDAOUT PHD, SINGH A V70.3 SPORTS PHYSICAL 04/21/2013 BOEKHOUT PHD, SINGH A V70.3 SPORTS PHYSICAL 04/21/2013 BOEKHOUT PHD, SINGH A V70.3 SPORTS PHYSICAL 04/21/2013 BOEKHOUT PHD, SINGH A V70.3 SPORTS PHYSICAL 04/21/2013 ALIREZA CRNP, WILLIAMS V70 .3 SPORTS PHYSICAL 04/21/2013 BOEKHOUT PHD, SINGH A V70.3 SPORTS PHYSICAL 07/26/2013 AAMIRE CRNP, LUZ A 709.9 SKIN LESIONS 07/26/2013 SMITA RICE, NONI 709.9 SKIN LESIONS 07/26/2013 SMITA RICE, NONI 709.9 SKIN LESIONS 07/26/2013 BOENEREYDAOUT PHD, SINGH A 709.9 SKIN LESIONS 07/26/2013 BOEOUT PHD, SINGH A 709.9 SKIN LESIONS 07/26/2013 BOEKHOUT PHD, SINGH A 709.9 SKIN LESIONS 07/26/2013 BOEOUT PHD, SINGH A 709.9 SKIN LESIONS 07/26/2013 ALIREZA CRNP, WILLIAMS 709 .9 SKIN LESIONS 07/26/2013 BOEOUT PHD, SINGH A 709.9 SKIN LESIONS 09/19/2013 [...] SMITA RICE, NONI V20.2 WELL CHILD 09/19/2013 SCOTT PHD, SINGH Loya 278.00 OBESITY 09/19/2013 SCOTT PHD, SINGH Loya 783.1 ABNORMAL WEIGHT GAIN 09/19/2013 SCOTT PHD, SINGH Loya V03.89 MENINGOCOCCAL DX 09/19/2013 SCOTT PHD, SINGH Loya V04.81 FLU SHOT 09/19/2013 SCOTT PHD, SINGH Loya V04.89 GARDASIL (HPV) DX 09/19/2013 SCOTT PHD, SINGH Loya V20.2 WELL CHILD 09/19/2013 SCOTT PHD, SINGH Loya 278.00 OBESITY 09/19/2013 SCOTT WALDROP, SINGH Loya 783.1 ABNORMAL WEIGHT GAIN 09/19/2013 SCOTT [place], SINGH Loya V03.89 MENINGOCOCCAL DX 09/19/2013 SCOTT [place]AL[place], SNIGH Loya V04.81 FLU SHOT 09/19/2013 SCOTT WALDR[place], SINGH Loya V04.89 GARDASIL (HPV) DX 09/19/2013 SCOTT [place]DR[place], SINGH Loya V20.2 WELL CHILD 09/19/2013 SCOTT [place], SINGH Loya 278.00 OBESITY 09/19/2013 SCOTT [place], SINGH Loya 783.1 ABNORMAL WEIGHT GAIN 09/19/2013 SCOTT [place], SINGH Loya V03.89 MENINGOCOCCAL DX 09/19/2013 SCOTT WALDROP, SINGH Loya V04.81 FLU SHOT 09/19/2013 SCOTT [place]ALDROP, SINGH Loya V04.89 GARDASIL (HPV) DX 09/19/2013 SCOTT [place], SINGH Loya V20.2 WELL CHILD 09/19/2013 SCOTT [place], SINGH Loya 278.00 OBESITY 09/19/2013 SCOTT [place]DROP, SINGH Loya 783.1 ABNORMAL WEIGHT GAIN 09/19/2013 SCOTT [place], SINGH Loya V03.89 MENINGOCOCCAL DX 09/19/2013 SCOTT PHD, SINGH Loya V04.81 FLU SHOT 09/19/2013 SCOTT [place], SINGH Loya V04.89 GARDASIL (HPV) DX 09/19/2013 SCOTT [place], SINGH Loya V20.2 WELL CHILD 09/19/2013 ALIREZA CRNP, WILLIAMS 278 .00 OBESITY 09/19/2013 ALIREZA CRNP, WILLIAMS 783 .1 ABNORMAL WEIGHT GAIN 09/19/2013 ALIREZA CRNP, WILLIAMS V03 .89 MENINGOCOCCAL DX 09/19/2013 ALIREZA CRNP, WILLIAMS V04 .81 FLU SHOT 09/19/2013 ALIREZA CRNP, WILLIAMS V04 .89 GARDASIL (HPV) DX 09/19/2013 ALIREZA CRNP, WILLIAMS V20 .2 WELL CHILD 09/19/2013 SCOTT WALDROP, ISNGH Loya 278.00 OBESITY 09/19/2013 SCOTT [place], SINGH Loya 783.1 ABNORMAL WEIGHT GAIN 09/19/2013 SINGH CHAVEZ PHD V03.89 MENINGOCOCCAL DX 09/19/2013 SINGH CHAVEZ PHD V04.81 FLU SHOT 09/19/2013 SINGH CHAVEZ PHD V04.89 GARDASIL (HPV) DX 09/19/2013 SINGH CHAVEZ PHD V20.2 WELL CHILD 01/20/2014 FRANCIS RICE, JANIA Arriola Ot 780 .4 01/20/2014 FRANCIS RICE, JANIA Arriola Ot 784 .0 10/16/2014 HARPER RICE, MELISSA Gee Ot 681.02 ONYCHIA OF FINGER 10/16/2014 HARPER RICE, MELISSA Gee Ot 729.81 SWELLING OF LIMB 10/24/2014 SINGH CHAVEZ PHD 300.00 AN ANXIETY UNSPEC 10/24/2014 SCOTT WALDROP, SINGH Loya 300.4 MO DYSTHYMIC DISORDER 10/24/2014 SINGH CHAVEZ PHD 300.00 AN ANXIETY UNSPEC 10/24/2014 SCOTT WALDROP, SINGH A 300.4 MO DYSTHYMIC DISORDER 10/24/2014 SCOTT [place], SINGH Loya 300.00 AN ANXIETY UNSPEC 10/24/2014 SCOTT [place]ALDROP, SINGH Loya 300.4 MO DYSTHYMIC DISORDER 10/24/2014 SCOTT [place], SINGH A 300.00 AN ANXIETY UNSPEC 10/24/2014 SCOTT [place], SINGH Loya 300.4 MO DYSTHYMIC DISORDER 10/24/2014 ALIREZA CRNPGABINO HerreraWILLIAMS 300 .00 AN ANXIETY UNSPEC 10/24/2014 ALIREZA LOPEZ WILLIAMS 300 .4 MO DYSTHYMIC DISORDER 10/24/2014 SCOTT PHD, SINGH Loya 300.00 AN ANXIETY UNSPEC 10/24/2014 SCOTT PHD, SINGH Loya 300.4 MO DYSTHYMIC DISORDER 03/08/2015 WILLIAMS LAY APRN 296 .22 MO DEPRESSIVE SINGLE MODERATE 03/08/2015 WILLIAMS LAY APRN 300 .02 AN GEN ANXIETY 03/08/2015 SCOTT PHD, SINGH Loya 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 03/08/2015 SCOTT PHD, SINGH Loya 300.02 AN GEN ANXIETY 06/18/2015 Ot 787.3 02/29/2016 Ot G47.10 HYP ERSOMNIA, UNSPECIFIED 02/29/2016 Ot R06.83 SNO RING 03/10/2016 Ot G47.10 03/10/2016 Ot R06.83 03/12/2016 [...] AND HIKING 03/16/2016 JUSTIN WISEMAN APRN Ot Y99 .8 OTHER EXTERNAL CAUSE STATUS 03/16/2016 Ot 787.3 FLAT UL/ERUCTAT/GAS PAIN 03/18/2016 JUSTIN WISEMAN APRN Ot S82.61XA DISP FX OF LATERAL MALLEOLUS OF RIGHT FI 03/18/2016 JUSTIN WISEMAN APRN Ot S83.91XA SPRAIN OF UNSPECIFIED SITE OF RIGHT KNEE 03/18/2016 JUSTIN WISEMAN APRN Ot W18.42XA SLIP/TRIP W/O FALLING DUE TO STEP INTO H 03/18/2016 JUSTIN WISEMAN APRN Ot Y93.01 ACTIVITY, WALKING, MARCHING AND HIKING 03/18/2016 JUSTNI WISEMAN APRN Ot Y99 .8 OTHER EXTERNAL CAUSE STATUS 04/16/2017 CHARLES RICE, BRANDAN N Ot N91. 4 SECONDARY OLIGOMENORRHEA 04/16/2017 CHARLES RICE, BRANDAN Herrera Ot N93. 9 ABNORMAL UTERINE AND VAGINAL BLEEDING, U 04/16/2017 CHARLES RICE, BRANDAN Herrera Ot N94. 4 PRIMARY DYSMENORRHEA 07/28/2017 LARISA ELYEN Gonzalez Ot B35.8 OTHER DERMATOPHYTOSES 07/28/2017 LARISA ELYEN L Ot H60.93 UNSPECIFIED OTITIS EXTERNA, BILATERAL 07/28/2017 LARISA ELYEN L Ot H92.03 OTALGIA, BILATERAL 07/28/2017 LARISA ELYEN L Ot Z90.89 ACQUIRED ABSENCE OF OTHER ORGANS 07/30/2017 MARV ELY Ot B35.8 OTHER DERMATOPHYTOSES 07/30/2017 MARV ELY Ot H60.93 UNSPECIFIED OTITIS EXTERNA, BILATERAL 07/30/2017 MARV ELY Ot H92.03 OTALGIA, BILATERAL 07/30/2017 MARV ELY Ot Z90.89 ACQUIRED ABSENCE OF OTHER ORGANS 07/31/2017 MARV ELY L Ot B35.8 OTHER DERMATOPHYTOSES 07/31/2017 LARISA ELYEN Gonzalez Ot H60.93 UNSPECIFIED OTITIS EXTERNA, BILATERAL 07/31/2017 MARV ELY Ot H92.03 OTALGIA, BILATERAL 07/31/2017 LARISA ELYEN L Ot Z90.89 ACQUIRED ABSENCE OF OTHER ORGANS Procedures Code Description [place] [address] Scre ening Test Of Visual Acuity, Quantitative, Bilateral 97415 PURE TONE HEARING TEST AIR 09/20/2013 09073 ROUT INE VENIPUNCTURE 10/14/2013 64942 CBC 10/14/2013 15057 CMP 10/14/2013 11265 LIPI D PANEL 10/14/2013 20792 T4 FREE 10/14/2013 68168 TSH 10/14/2013 58083 INSU LUCERO LEVEL 10/15/2013 15427 PSYC H DIAGNOSTIC EVALUATION 10/24/2014 08581 PSYT X PT&/FAMILY 45 MINUTES 12/14/2014 53392 PSYT X PT&/FAMILY 45 MINUTES 01/11/2015 93364 PSYT X PT&/FAMILY 45 MINUTES 02/21/2015 78872 PSYT X PT&/FAMILY 45 MINUTES 03/22/2015 Results There is no data. Encounters ACCT No. Visit Date/Time Discharge Status Pt. Type Provider Facility Loc./Unit Complaint [id number] 03/31/2019 14:30:00 03/31/2019 23:59:5 9 CLS Outpatient GLORIA ROSENTHAL LAC [facility] [place] [id number] 06/01/2018 12:29:00 018 23:59:59 CLS Preadmit SHARMIN WEISS FISHER EEL [facility] REHAB CHONDROMALACIA R KNEE [id number] 07/28/2017 19:14:00 017 21:38:00 DIS Emergency MARV ELY [facility] ER BILAT EAR PAIN/LOSS OF HEARING [id number] 04/07/2017 12:13:00 017 23:59:59 CLS Outpatient CHARLES RICE, BRANDAN Herrera [facility] RAD N91.4,N94.4 [id number] 03/16/2016 16:15:00 016 18:00:00 DIS Emergency JUSTIN WISEMAN APRN [facility] ER FALL/RIGHT ANKLE INJURY [id number] 10/16/2014 21:31:00 014 22:18:00 DIS Emergency MELISSA SALEEM MD [facility] ER FINGER INJ [id number] 01/20/2014 15:11:00 014 17:44:00 DIS Emergency JANIA BLANCO MD [facility] ER [id number] 02/28/2016 19:44:00 Document Registration [id number] 05/23/2011 21:51:00 Document Registration [id number] 12/09/2010 07:50:00 Document Registration [id number] 03/21/2015 15:54:00 03/21/2015 23:59: 59 CLS Outpatient SINGH CHAVEZ PHD [id number] 03/08/2015 10:00:00 03/08/2015 23:59: 59 CLS Outpatient WILLIAMS LAY APRN [id number] 02/21/2015 17:49:00 02/21/2015 23:59: 59 CLS Outpatient SINGH CHAVEZ PHD [id number] 01/10/2015 15:56:00 01/10/2015 23:59: 59 CLS Outpatient SINGH CHAVEZ PHD [id number] 12/13/2014 15:47:00 12/13/2014 23:59: 59 CLS Outpatient SINGH CHAVEZ PHD [id number] 10/24/2014 10:37:00 10/24/2014 23:59: 59 CLS Outpatient SINGH CHAVEZ PHD [id number] 10/14/2013 08:36:00 10/14/2013 23:59: 59 CLS Outpatient NONI ORDOÑEZ MD [id number] 09/19/2013 13:18:00 09/19/2013 23:59: 59 CLS Outpatient NONI ORDOÑEZ MD [id number] 08/25/2013 13:30:00 08/25/2013 23:59: 59 CLS Outpatient LUZ ZHAO APRN [id number] 04/21/2013 08:39:00 Document Registration [id number] 03/11/2013 10:02:00 Document Registration
--- OUTSIDE RECORDS SUMMARY | 2020-04-01 12:50 | XMS REPORT ---
Author Author Lianne ZHAO Organization [facility] Address [address] [place] [address] Care Team Providers Care Foreign Language Interpreter Name Role Phone LUZ ZHAO Unavailable PROBLEMS Type Condition ICD9-CM Code RUO13-AK Code Onset Dates Condition S tatus SNOMED Code Problem Dysthymic disorder F34.1 Active 7 4978724 Problem Anxiety disorder, unspecified F41.9 Active [id number] ALLERGIES No Information ENCOUNTERS Encounter Location Date Diagnosis [facility] [address] [id number] 07 Jan, 2018 Encounter for immunization Z 23 [facility] [address] [id number] 15 Dec, 2017 Sprain of calcaneofibular li gament of left ankle, initial encounter S93.412A [facility] [address] [id number] 06 Jul, 2017 Encounter for immunization Z 23 [facility] [address] [place] [id number] [place] [address] [id number] 10 Mar, 2017 Sports physical Z02.5 ; Exer cise counseling Z71.89 and Dietary counseling Z71.3 [facility] [address] [place] [id number] [place] [id number] 14 Jan, 2017 Body aches R52 and Influenza A J10.1 [facility] [id number] [place] [address] [id number] 10 Sep, 2016 Dental examination Z01.20 [facility] [address] [id number] [address] [place] [address] [id number] 08 Sep, 2016 Dental examination Z01.20 [facility] [address] [place] [id number] [place] [address] [id number] March, Sports physical Z02.5 ; Exer cise counseling Z71.89 ; Dietary counseling Z71.3 and Obesity due to excess calories, unspecified obesity severity E66.09 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 [place] [address] [place] [id number] [address] [place] [phone] 08 Dec, 2015 Weight gain, abnormal R63.5 [place] [address] [place] [id number] [place] [phone] 05 Dec, 2015 Migraine with aura and witho ut status migrainosus, not intractable G43.109 ; Acute upper respiratory infection, unspecified J06.9 ; Other viral agents as the cause of diseases classified elsewhere B97.89 ; Pain in right knee M25.561 ; Obstructive sleep apnea G47.33 and Weight gain, abnormal R63.5 [place] [address] [place] [id number] Sep, Encounter for immunization Z 23 [place] [address] [place] [id number] Sep, Dysthymic disorder F34.1 and Anxiety disorder, unspecified F41.9 [place] [address] [place] [id number] [place] [id number] 17 Sep, 2015 Anxiety disorder, unspecifie d F41.9 and Major depression single episode, 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 [facility] [address] [id number] [address] [place] [address] [id number] 11 Sep, 2015 Dental examination Z01.20 [place] [address] [place] [id number] [place] [id number] Aug, Dysthymic disorder F34.1 and Anxiety disorder, unspecified F41.9 [place] [address] [place] [id number] [place], [place] [id number] Jul, Dysthymic disorder 300.4 and Anxiety state, unspecified 300.00 [place] [address] [phone] Jun, Anxiety state, unspecified 3 00.00 and Depression, major, recurrent, 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.35 [place] [address] [place] [address] Jun, Dysthymic disorder 300.4 and Anxiety state, unspecified 300.00 [place] [address] [place] [id number] [place] [phone] May, Anxiety state, unspecified 3 00.00 and Depression, major, recurrent, 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.35 [place] [address] [place] [id number] [place] [phone] Apr, Dysthymic disorder 300.4 and Anxiety disorder, unspecified 300.00 [place] [address] [place] [id number] [place] [phone] March, Anxiety state, unspecified 3 00.00 and Moderate recurrent major depression 296.32 [facility] [address] [id number] March, Shortness of breath 786.05 [facility] [address] [id number] March, Routine sports physical exam V70.3 ; Exercise counseling V65.41 ; Dietary counseling V65.3 and Shortness of breath 786.05 [place] [address] [place] [id number] [place] [phone] March, Dysthymic disorder 300.4 and Anxiety disorder 300.00 [facility] [address] [id number] [address] [place] [address], [place] [address] 14 Feb, 2015 [facility] [address] [id number] [address] [place] [address], [place] [address] Feb, [facility] [address] [id number] [address] [place] [address], [place] [address] Jan, [facility] [address] [id number] [address] [place] [address], [place] [address] Jan, [facility] [address] [id number] [address] [place] [address], [place] [address] Dec, [facility] [address] [id number] [address] [place] [address], [place] [address] Dec, [facility] [address] [id number] [address] [place] [address], [place] [address] Dec, [facility] [address] [id number] [address] [place] [address], [place] [address] Dec, [facility] [address] [id number] [address] [place] [address], [place] [address] Nov, [facility] [address] [id number] [address] [place] [address], [place] [address] Nov, [facility] [address] [id number] [address] [place] [address], [place] [address] Nov, [facility] [address] [id number] [address] [place] [address], [place] [address] Nov, [facility] [address] [id number] [address] [place] [address], [place] [address] Sep, [facility] [address] [id number] [address] [place] [address], [place] [address] Sep, [facility] [address] [id number] [address] [place] [address], [place] [address] Oct, [facility] [address] [id number] [address] [place] [address], [place] [address] Oct, [facility] [address] [id number] [address] [place] [phone] Oct, [facility] [address] [id number] [address] [place] [phone] Oct, [facility] [address] [id number] [address] [place] [phone] Sep, [facility] [address] [id number] [address] [place] [phone] Sep, [facility] [address] [id number] [address] [place] [phone] Sep, [facility] [address] [id number] [address] [place] [address] Sep, [facility] [address] [id number] [address] [place] [phone] Sep, [facility] [address] [id number] [address] [place] [phone] Aug, [facility] [address] [id number] [address] [place] [phone] Aug, [facility] [address] [id number] [address] [place] [phone] Jul, [facility] [address] [id number] [address] [place] [phone] Jun, [facility] [address] [id number] [address] [place] [phone] March, [facility] [address] [id number] [address] [place] [phone] Feb, IMMUNIZATIONS Vaccine Route Administration Date Status MENINGOCOCCAL (MENVEO) IM Intramuscular Aug 05, 2017 Administ ered HEP A (PED/ADOL-2 DOSE) IM Intramuscular Aug 05, 2017 Adminis tered SOCIAL HISTORY Never Assessed REASON FOR VISIT #1 HepA/#2 [email or web address] 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
--- OUTSIDE RECORDS SUMMARY | 2020-04-01 12:50 | XMS REPORT ---
Author Author Lianne SOLIS Organization [facility] Address [address] [place] [address] Care Team Providers Care Toter Name Role Phone MALATHI SOLIS Unavailable PROBLEMS Type Condition ICD9-CM Code TQS01-AN Code Onset Dates Condition S tatus SNOMED Code Problem Dysthymic disorder F34.1 Active 7 [id number] Problem Anxiety disorder, unspecified F41.9 Active [id number] ALLERGIES No Known Allergies SOCIAL HISTORY Never Assessed PLAN OF CARE Activity Details Follow Up prn Reason: VITAL SIGNS Height 61 in 2017-02-10 Weight 213.6 lbs 2017-02-10 Temperature 97.9 degrees Fahrenheit 2017-02-10 Heart Rate 74 bpm 2017-02-10 Respiratory Rate 20 2017-02-10 BMI 40.35 kg/m2 2017-02-10 Blood pressure systolic 116 mmHg 2017-02-10 Blood pressure diastolic 74 mmHg 2017-02-10 MEDICATIONS Unknown Medications RESULTS No Results PROCEDURES Procedure Date Ordered Result Body Site INFLUENZA ASSAY W/OPTIC February 10, 2017 IMMUNIZATIONS No Known Immunizations MEDICAL (GENERAL) HISTORY Type Description Date Medical History obesity Medical History fx right tib/fib 2016 Surgical History bladder stretched 2010 Surgical History T & A 2008
--- OUTSIDE RECORDS SUMMARY | 2020-04-01 12:50 | XMS REPORT | CCD ---
Author Author Lianne Alvarado D.O. 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 Name Role Phone PP Unavailable CCM Unavailable Summary Purpose Interface Exchange Family History Family History data not found Social History No Social History data Allergies, Adverse Reactions, Alerts Substance Reaction Codes Entered Date Inactivated Date Status * NO KNOWN FOOD KARINA RGIES Unknown 02/11/2010 No Inactive Date Active * NO KNOWN DRUG KARINA RGIES Unknown 02/11/2010 No Inactive Date Active _ Unknown 02/11/2010 No Inactive Date Active Past Medical History Illness Codes Condition Status Onset Date Resolved Date Nail bed infection ICD- 9: 681.9 Active 03/08/2012 Unknown URGE INCONTINENCE ICD-9: 788.31 Active 06/05/2011 Unknown NOCTURNAL ENURESIS ICD- 9: 788.36 Active 05/29/2011 Unknown ABNORMAL WEIGHT GAIN ICD-9: 783.1 Active 05/22/2010 Unknown TONSILLITIS, ACUTE ICD- 9: 463 Active 03/28/2010 Unknown Allergic rhinitis Unknown Active 02/11/2010 Unknown Impaired Glucose Florentin erance Unknown Active 0 Unknown DYSPEPSIA ICD-9: 536.8 Active 02/11/2010 Unknow n IMPAIRED FASTING GLU COSE ICD-9: 790.21 Active Unknown Problems Condition Codes Effectiv e Dates Condition Status Nail bed infection ICD- 9: 681.9 03/08/2012 Active URGE INCONTINENCE ICD-9: 788.31 06/05/2011 Active NOCTURNAL ENURESIS ICD- 9: 788.36 05/29/2011 Active ABNORMAL WEIGHT GAIN ICD-9: 783.1 05/22/2010 Active TONSILLITIS, ACUTE ICD- 9: 463 03/28/2010 Active Allergic rhinitis Unknown 02/11/2010 Active Impaired Glucose Florentin erance Unknown 02/11/2010 Activ e DYSPEPSIA ICD-9: 536.8 02/11/2010 Active IMPAIRED FASTING GLU COSE ICD-9: 790.21 02/11/2010 Active Medications Medication Codes Instruc tions Start Date Stop Date Sta tus Fill Instructions Septra DS 800 mg-160 mg Tab RxNorm: 030951 1 Tablet(s) PO BID 03/08/2012 03/14/2012 Inactive Clarithromycin 250 m g/5 mL Oral Susp RxNorm: 494751 1 12/01 Teaspoon(s) PO BID 03/28/2010 04/06/2010 In active Metformin 500 mg Tab RxNorm: 531552 1 Tablet(s) PO QD 02/11/2010 02/11/2010 Inactive Medication Administered No Medication Administered data Immunizations Vaccine Codes Date Status Hepatitis A CVX: 83 05/02 completed Assessments Condition Codes Effectiv e Dates Nail bed infection ICD-9: 681.9 03/08/2012 IMPAIRED FASTING GLUCOSE ICD-9: 790.21 06/05/2011 URGE INCONTINENCE ICD-9: 788.31 06/05/2011 ABNORMAL WEIGHT GAIN ICD-9: 783.1 06/05/2011 NOCTURNAL ENURESIS ICD-9: 788.36 06/05/2011 TONSILLITIS, ACUTE ICD-9: 463 03/28/2010 DYSPEPSIA ICD-9: 536.8 0 02/11/2010 Reason For Visit Reason For Visit Effective Dates Notes ~generic 03/08/2012 ingr own toenail urinary incontinence 06/05/2011 still waiting to hear back from Andrea Cai weight gain/obesity 12/03/2010 weight gain/obesity 05/22/2010 last wgt 95lbs on 03/28/10 sore throat 03/28/2010 follow up 02/11/2010 3mo fwup/doing [employer] Results No Results data Review of Systems System Result Effective Dates Dermatologic cellulitis 03/08/2012 [...] dirty with caked dirt and residual nail slovak on toe nails. Full Exam - General [...] Abdomen abdominal exam Overall: soft 02/11/2010 None Procedures Procedure Codes Date URINALYSIS NONAUTO W /O SCOPE CPT-4: 93271 06/05/2011 URINE CULTURE/ COLON Y COUNT CPT-4: 64795 06/05/2011 URINALYSIS NONAUTO W /O SCOPE CPT-4: 66390 05/29/2011 IMMUNIZATION ADMIN u p to 18 yoa CPT-4: 80124 05/29/2011 HEP A VACC PED/ADOL 2 DOSE CPT-4: 39700 05/29/2011 Vital Signs Date Vital 03/08/2012 Blood Pressure 1: 122/64 Code: 8480-6 BMI: 28.9 Code: 72487-3 Heart Rate 1: 80 bpm Height: 4'8" Temperature: 36.9 (C ) / 98.4 (F) Weight: 131 lbs 06/05/2011 Heart Rate 1: 88 bpm Temperature: 36.8 (C ) / 98.2 (F) Weight: 120 lbs 12/03/2010 Blood Pressure 1: 106/72 Code: 8480-6 BMI: 27.5 Code: 91678-9 Heart Rate 1: 104 bpm Height: 4'5" Temperature: 36.8 (C ) / 98.3 (F) Weight: 111 lbs 05/22/2010 Blood Pressure 1: 112/68 Code: 8480-6 BMI: 28.1 Code: 27905-4 Heart Rate 1: 76 bpm Height: 4'4" Temperature: 36.6 (C ) / 97.8 (F) Weight: 108 lbs 03/28/2010 BMI: 24.7 Code: 12887-7 Height: 4'4" Temperature: 36.3 (C ) / 97.4 (F) Weight: 95 lbs 02/11/2010 BMI: 24.2 Code: 34497-4 Heart Rate 1: 84 bpm Height: 4'4" Temperature: 37.2 (C ) / 98.9 (F) Weight: 93 lbs Functional Status No Functional Status data History of Present Illness Symptom Name Status Resu lt Effective Date Notes ~generic Location [facility] 03/08/2012 None ~generic Quality constant 03/08/2012 None [...] nausea Frequency of Episodes daily 02/11/2010 None Advance Directives No Advance Directive data Encounters Encounter Performer Loca tion Codes Date OFFICE/OUTPATIENT SIT EST Diagnosis: Nail bed infection[ICD9: 681.9] [facility] CPT-4: 89071 03/08/2012 OFFICE/OUTPATIENT SIT EST Mirza Garzaer [facility] CPT-4: 47373 06/05/2011 ([id number]) OFFICE/OUTPA TIENT VISIT, EST Mirza Peñalozander [facility] CPT-4: 96051 12/03/2010 ([id number]) OFFICE/OUTPA TIENT VISIT, EST Mirza Orender [facility] CPT-4: 70082 05/22/2010 ([id number]) OFFICE/OUTPA TIENT VISIT, EST Mirza Peñalozander [facility] CPT-4: 67200 03/28/2010 ([id number]) OFFICE/OUTPA TIENT VISIT, EST Mirza Peñalozander [facility] CPT-4: 07407 02/11/2010 Plan of Care Planned Activity Notes C odes Status Date Visit Plan: podiatry referral for i n-grown toenail removal. Jillian ball. Discussed foot care while waiting for infection to clear. Clean and dry. Caregiver to monitor for worsening infection and or fever or pus. 03/08/2012 Appointment: [facility] [phone] [id number] [facility] 03/08/2012 Patient Education: Patient Medication Summary Completed 03/08/2012 Visit Plan: See urology--may need u rethra or bladder stretched Restart metformin at 250mg QD for 1mo 06/05/2011 Appointment: Mirza Alvarado WPtel: [address] [place], [place] [phone] ACUTE ILLNESS 06/05/2011 Patient Education: Patient Medication Summary Completed 06/05/2011 Appointment: Mirza Alvarado WPtel: [address] [place], [place] [phone] US INJECTION 05/29/2011 Patient Education: Patient Medication Summary Completed 05/29/2011 Visit Plan: Check fasting lab--CMP, Insulin level, TSH Discussed diet and exercise at length Discusse restarting metformin pending above results 12/03/2010 Appointment: Mirza Alvarado WPtel: [address] [place] [address] ESTABLISHED PATIENT 12/03/2010 Patient Education: Patient Medication Summary Completed 12/03/2010 Visit Plan: Repeat fasting lab incl uding CMP, CBC,Lipids, Insulin, TSH Diet/Exercise discussed at length Fwup pending lab results 05/22/2010 Appointment: Mirza Alvarado WPtel: [address] [place], [place] [phone] FOLLOW UP 05/22/2010 Patient Education: Patient Medication Summary Completed 05/22/2010 Visit Plan: Will treat tonsils with Clarithromycin. Referral to Dr. Mendoza for recurrent tonsil enlargement and halitosis. [facility] office April 16 at 11 am . Has had dental appnt. and been cleared of halitosis by dental exam. 03/28/2010 Appointment: Gely Sharma WPtel: [address] [place], [place] [phone] ACUTE ILLNESS 03/28/2010 Patient Education: Patient Medication Summary Completed 03/28/2010 Visit Plan: Hold Metformin Cont Hea lthy Diet and Exercise Call in 2wks on nausea Plan lab this summer--April or 02/11/2010 Appointment: Mirza Alvarado WPtel: [address] [place], [place] [phone] CHECK UP 02/11/2010 Patient Education: Patient Medication Summary Completed 02/11/2010 Instructions Comment . Repeat fasting lab including [...] Mendoza for recurrent tonsil enlargement and halitosis. [facility] office April 16 at 11 am . Has had dental appnt. and been cleared of halitosis by dental exam. . See urology--march eed urethra or bladder stretched Restart metformin at 250mg QD for 1mo
--- NOTE | 2020-04-01 12:55 | ED GU-Female ---
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 Patient reports she has abnormal menstrual periods. That she started having some vaginal bleeding that was having this morning. She has some lower abdominal cramping. Her fianc thought she was little more fatigued than normal. Patient does have an appointment with her OB this week. She is not having any nausea vomiting or any other systemic complaints. Allergies and Home Medications Allergies Coded Allergies: No Known Drug Allergies (Unverified , 06/10/10) Home Medications Hydrocodone/Acetaminophen 1 Each Tablet, 1 EACH PO Q4H PRN for PAIN Prescribed by: JUSTIN WISEMAN on 03/16/16 1721 Ibuprofen 400 Mg Tablet, 400 MG PO Q6H PRN for PAIN Prescribed by: JANIA BLANCO on 01/20/14 1703 Terbinafine HCl 15 Gm Cream..g., 15 GM TP UD apply to the affected area BID x2-4 wks. continue for 2 days after symptoms resolve. Prescribed by: MARV CINTRON on 07/28/17 213 Trimethoprim/Sulfamethoxazole 1 Ea Tablet, 1 EA PO BID Prescribed by: MELISSA SALEEM on 10/16/14 2207 Patient Home Medication List Home Medication List Reviewed: Yes Review of Systems Review of Systems Constitutional: No chills, No fever Respiratory: no symptoms reported Cardiovascular: no symptoms reported Gastrointestinal: no symptoms reported Genitourinary: see HPI Musculoskeletal: no symptoms reported Skin: no symptoms reported Past Vkrtxnf-Felots-Pgrtxx Hx Past Med/Social Hx: Reviewed Nursing Past Med/Soc Hx Patient Social History Recent Foreign Travel: No Contact w/Someone Who Travel: No Immunizations Up To Date PED Vaccines UTD: Yes Date of Influenza Vaccine: Sep 30, 2013 Past Medical History Surgeries: Yes Adenoidectomy, Tonsillectomy Respiratory: No Cardiac: No Neurological: No Reproductive Disorders: No Sexually Transmitted Disease: No Genitourinary: No Gastrointestinal: No Musculoskeletal: No Endocrine: No Cancer: No Psychosocial: No Blood Disorders: No Family Medical History No Pertinent Family Hx Physical Exam Vital Signs Vital Signs - First Documented 04/01/20 12:45 Temp 36.7 Pulse 80 Resp 18 B/P (MAP) 148/97 O2 Delivery Room Air Capillary Refill : Height, Weight, BMI Height: 5'2.00" Weight: 200lbs. oz. 90.441258wc; 35.15 BMI Method:Stated General Appearance: WD/WN, no apparent distress Cardiovascular: normal peripheral pulses, regular rate, rhythm Respiratory: lungs clear, normal breath sounds Gastrointestinal: soft, tenderness (mild lower) Back: normal inspection Progress/Results/Core Measures Suspected Sepsis SIRS Temperature: Pulse: Respiratory Rate: Laboratory Tests 04/01/20 13:18: White Blood Count 5.2 Blood Pressure / Mean: Laboratory Tests 04/01/20 13:18: Platelet Count 226 Results/Orders Lab Results Laboratory Tests Test 04/01/20 13:18 Range/Units White Blood Count 5.2 4.3-11.0 10^3/uL Red Blood Count 4.12 L 4.35-5.85 10^6/uL Hemoglobin 11.2 L 11.5-16.0 G/DL Hematocrit 35 35-52 % Mean Corpuscular Volume 84 80-99 FL Mean Corpuscular Hemoglobin 27 25-34 PG Mean Corpuscular Hemoglobin Concent 32 32-36 G/DL Red Cell Distribution Width 13.5 10.0-14.5 % Platelet Count 226 130-400 10^3/uL Mean Platelet Volume 10.5 H 7.4-10.4 FL Neutrophils (%) (Auto) 59 42-75 % Lymphocytes (%) (Auto) 30 12-44 % Monocytes (%) (Auto) 5 0-12 % Eosinophils (%) (Auto) 6 0-10 % Basophils (%) (Auto) 0 0-10 % Neutrophils # (Auto) 3.0 1.8-7.8 X 10^3 Lymphocytes # (Auto) 1.5 1.0-4.0 X 10^3 Monocytes # (Auto) 0.3 0.0-1.0 X 10^3 Eosinophils # (Auto) 0.3 0.0-0.3 10^3/uL Basophils # (Auto) 0.0 0.0-0.1 10^3/uL Serum Test, Qualitative NEGATIVE NEGATIVE My Orders Orders - MARTINEZ,SHEBA L DO Cbc With Automated Diff (04/01/20 12:59) Hcg,Qualitative Serum (04/01/20 12:59) Vital Signs/I&O 04/01/20 12:45 Temp 36.7 Pulse 80 Resp 18 B/P (MAP) 148/97 O2 Delivery Room Air Capillary Refill : Progress Note : Time: 13:51 Progress Note Patient with stable hemoglobin. Patient does have an appointment with her OB this week. She should keep that appointment since she has a history of abnormal painful menses. Patient to be discharged home in stable condition Diagnostic Imaging Diagonstic Imaging: CT Plain Films/CT/US/NM/MRI: abdomen Comments [facility] REC#: [id number] PT STATUS: REG ER : 09/07/1995 PHYSICIAN: SHEBA MARTINEZ DO ADMIT DATE: 04/01/20/ER Draft Date of Exam:04/01/20 CT ABDOMEN/PELVIS WO PROCEDURE: CT abdomen and pelvis without contrast. TECHNIQUE: Multiple contiguous axial images were obtained through the abdomen and pelvis without the use of intravenous contrast. Auto Exposure Controls were utilized during the CT exam to meet ALARA standards for radiation dose reduction. INDICATION: Dyspnea with nausea and vomiting. Pain with vomiting. COMPARISON: 08/10/2019. DISCUSSION: The lung bases are well-aerated. Normal heart size. No pleural or pericardial fluid. The liver, gallbladder, pancreas, stomach, spleen, and adrenal glands are unremarkable. No renal stone or hydronephrosis identified. No evidence of appendicitis. Uterus and urinary bladder are unremarkable. No obstruction, pneumatosis, pneumoperitoneum. No constipation. No ascites or pathologically enlarged lymph nodes identified. No acute osseous abnormality identified. IMPRESSION: 1. No acute abnormality identified within either the abdomen or pelvis. Departure Impression Primary Impression: Dysmenorrhea Additional Impression: Abnormal menses Disposition: 01 HOME, SELF-CARE Condition: Stable Departure-Patient Inst. Referrals: NO,LOCAL PHYSICIAN (PCP/Family) Primary Care Physician Patient Instructions: Heavy Periods (DC), Absent or Irregular Periods Add. Discharge Instructions: Emergency department focuses on treating and ruling out life-threatening diseases. Whenever possible, a diagnosis is given. However, most patients are given an impression based on their history, physical exam, and workup during your brief time in the ER. Information about probable diagnosis and other educational material has been provided. Please take the time to read and understand this information. It is very important that you follow up with a physician as discussed during the visit today. Failure to adhere to your follow-up instructions may lead to severe disability, injury, or so please make sure to keep your appointments or obtain one as requested. Please keep in mind the emergency department is not designed to your primary care or "family doctor" and nonurgent issues are best evaluated by an outpatient physician All discharge instructions reviewed with patient and/or family. Voiced understanding. SHEBA MARTINEZ DO April 01, 2020 12:55
[2020-04-01 13:27] LABS: BASOPHILS % (AUTO) 0 % (0-10); EOSINOPHILS # (AUTO) 0.3 10^3/uL (0.0-0.3); EOSINOPHILS % (AUTO) 6 % (0-10); HEMATOCRIT 35 % (35-52); HEMOGLOBIN 11.2 G/DL (11.5-16.0); LYMPHOCYTES # (AUTO) 1.5 X 10^3 (1.0-4.0); LYMPHOCYTES % (AUTO) 30 % (12-44); MEAN CORPUSCULAR HEMOGLOBIN 27 PG (25-34); MEAN CORPUSCULAR HGB CONC 32 G/DL (32-36); MEAN CORPUSCULAR VOLUME 84 FL (80-99); MEAN PLATELET VOLUME 10.5 FL (7.4-10.4); MONOCYTES # (AUTO) 0.3 X 10^3 (0.0-1.0); MONOCYTES % (AUTO) 5 % (0-12); NEUTROPHILS % (AUTO) 59 % (42-75); PLATELET COUNT 226 10^3/uL (130-400); RED CELL DISTRIBUTION WIDTH 13.5 % (10.0-14.5); WHITE BLOOD COUNT 5.2 10^3/uL (4.3-11.0)
== END 2020-04-01 14:00 | disposition home or self-care (01) ==
LOC: EDUNIT# 12:42 → ER 12:43
DX: N94.6 Dysmenorrhea, unspecified (principal); N92.6 Irregular menstruation, unspecified
CPT/HCPCS: 36415; 84703; 85025

== ENCOUNTER 2020-09-27 09:48 | Emergency (ER) | payer BC, MEDICAID ==
[~2020-09-27] VITALS: Ht 157 cm; Wt 118.0 kg
--- NOTE | 2020-09-27 10:14 | ED Dyspnea ---
General Stated Complaint: COVID +, SOA AND COUGH Source of Information: Patient Exam Limitations: No Limitations History of Present Illness Date Seen by Provider: Sep 27, 2020 Time Seen by Provider: 10:00 Initial Comments Patient is a 19-year-old female who is 24 weeks who presents to the emergency room with a chief complaint of feeling short of breath and having increased cough. Patient tells me that she was diagnosed with COVID-19 almost 2 weeks ago. Today it is post to be the last day of her quarantine. Patient states over the last couple of days she has felt that she is more short of breath than usual and was concerned about her first . Patient has a dry cough. She has had nasal congestion nausea vomiting and diarrhea with her experience with Covid. Patient states that she has never had fever. She gets her care with Dr. Grubbs. Patient states her last visit with Dr. Reynolds was September 06. She has had normal thus far. Patient denies any sore throat or earaches. Denies any chest pain. All other review of systems reviewed and negative except as stated above. Timing/Duration: 1 Week Severity: Mild Activities at Onset: Activity Prior Episodes/Possible Cause: Illness Exposure Allergies and Home Medications Allergies Coded Allergies: No Known Drug Allergies (Unverified , 06/10/10) Home Medications Hydrocodone/Acetaminophen 1 Each Tablet, 1 EACH PO Q4H PRN for PAIN Prescribed by: JUSTIN WISEMAN on 03/16/16 1721 Ibuprofen 400 Mg Tablet, 400 MG PO Q6H PRN for PAIN Prescribed by: JANIA BLANCO on 01/20/14 1703 Terbinafine HCl 15 Gm Cream..g., 15 GM TP UD apply to the affected area BID x2-4 wks. continue for 2 days after symptoms resolve. Prescribed by: MARV CINTRON on 07/28/172133 Trimethoprim/Sulfamethoxazole 1 Ea Tablet, 1 EA PO BID Prescribed by: MELISSA SALEEM on 10/16/142206 Patient Home Medication List Home Medication List Reviewed: Yes Review of Systems Review of Systems Constitutional: no symptoms reported EENTM: nose congestion Respiratory: cough, dyspnea on exertion, short of breath Cardiovascular: no symptoms reported Gastrointestinal: diarrhea, nausea, vomiting Genitourinary: no symptoms reported : Yes Expected Date of Delivery: Jan 15, 2021 Musculoskeletal: no symptoms reported Skin: no symptoms reported Psychiatric/Neurological: No Symptoms Reported All Other Systems Reviewed Negative Unless Noted: Yes Past Ehcpiuw-Ftscqn-Dnumlr Hx Patient Social History Recent Foreign Travel: No Contact w/Someone Who Travel: No Immunizations Up To Date PED Vaccines UTD: Yes Date of Influenza Vaccine: Sep 30, 2013 Past Medical History Surgeries: Yes Adenoidectomy, Tonsillectomy Respiratory: No Cardiac: No Neurological: No Reproductive Disorders: No Sexually Transmitted Disease: No Genitourinary: No Gastrointestinal: No Musculoskeletal: No Endocrine: No Cancer: No Psychosocial: No Blood Disorders: No Family Medical History No Pertinent Family Hx Physical Exam Vital Signs Capillary Refill : Height, Weight, BMI Height: 5'2.00" Weight: 200lbs. oz. 90.295123ql; 49.00 BMI Method:Stated General Appearance: No Apparent Distress, WD/WN HEENT: PERRL/EOMI, Normal ENT Inspection, TM Abnormal (L), TM Abnormal (R) (Small effusions noted behind both the right and left tympanic membrane) Neck: Normal Inspection, Non Tender, Supple Respiratory: Lungs Clear, Normal Breath Sounds, No Accessory Muscle Use, No Respiratory Distress Cardiovascular: Regular Rate, Rhythm, No Edema, No Murmur Gastrointestinal: Normal Bowel Sounds, Non Tender, Soft Extremity: Normal Inspection, Normal Range of Motion Neurologic/Psychiatric: Alert, Oriented x3, No Motor/Sensory Deficits, Normal Mood/Affect Skin: Normal Color, Warm/Dry Progress/Results/Core Measures Progress Progress Note : Time: 10:15 Progress Note 19-year-old female presents with a chief complaint of shortness of breath and cough due to COVID-19. Evaluation today includes a physical exam. Patient had pulse oximetry at the bedside which showed a 99% saturation on room air. Patient's heart tones were also obtained and adequate. Patient is reassured. No acute clinical or objective findings to warrant further investigation at this time. Patient will be discharged home with supportive care. She verbalized understanding is agreeable with the discharge instructions all questions are sought and answered and she is stable for discharge. Departure Impression Primary Impression: Dyspnea Qualified Codes: R06.02 - Shortness of breath Additional Impression: COVID-19 affecting in second trimester Disposition: HOME, SELF-CARE Condition: Stable (ERASED) Departure-Patient Inst. Decision time for Depature: 10:25 Referrals: NO,LOCAL PHYSICIAN (PCP/Family) Primary Care Physician Patient Instructions: Shortness of Breath (Dyspnea) (DC), Coronavirus Disease 2019 (COVID-19) and Add. Discharge Instructions: Drink plenty of fluids to stay well-hydrated. Continue your routine care. Use warm tea with honey as needed for cough. Follow-up with Dr. Grubbs. IVAN GOMEZ MD Sep 27, 2020 10:14
== END 2020-09-27 10:37 | disposition home or self-care (01) ==
LOC: EDUNIT# 09:48 → ER 09:50
DX: O98.512 Other viral diseases complicating pregnancy, second trimester (principal); U07.1 COVID-19; R06.00 Dyspnea, unspecified; Z3A.24 24 weeks gestation of pregnancy

== ENCOUNTER 2021-01-01 23:56 | Outpatient (CLI) | payer BC, MEDICAID ==
[~2021-01-01] VITALS: Ht 157.5 cm; Wt 136.2 kg
[~2021-01-01 23:56] MED LIST changes: -METR500T PO
--- NOTE | 2021-01-02 00:05 | NUR ---
PIERRE CONDON presented to unit via wc from ED, accompanied by s/o , with c/o DIZZY,PAIN IN RT SIDE. PIERRE CONDON weighed, gowned, voided, and to bed. EFHM and TOCO applied, VS taken. PIERRE CONDON oriented to bed controls, call light, TV, heat, and A/C controls. above and further assessments carried out per this rn.
[2021-01-02 00:20] VITALS: BP 137/88
[2021-01-02 00:26] LABS: BILIRUBIN,URINE NEGATIVE (NEGATIVE); CLARITY,URINE CLOUDY; COLOR,URINE YELLOW; GLUCOSE, URINE (UA) NEGATIVE (NEGATIVE); KETONES,URINE NEGATIVE (NEGATIVE); LEUKOCYTE ESTERASE ,URINE 1+ (NEGATIVE); NITRITE,URINE NEGATIVE (NEGATIVE); PROTEIN,URINE NEGATIVE (NEGATIVE)
[2021-01-02 00:36] LABS: BACTERIA,URINE FEW /HPF
[2021-01-02 00:37] LABS: TRICHOMONAS,URINE FEW /HPF
[2021-01-02 00:45] VITALS: BP 123/93
--- NOTE | 2021-01-02 01:00 | NUR ---
Discharge packet given, education voiced, pt aware it is her responsibility to filler picker her flagyl RX at the [facility] tomorrow, and that if her preeclamsia ss get worse to go to the office tomorrow. Education was provided on trichomonas and that her s/o would also need treatment. understanding voiced. Pt ambulatory off unit with s/o at this time, no ss distress.
[2021-01-02 01:05] VITALS: BP 137/88
[2021-01-02 01:09] VITALS: BP 137/88
--- NOTE | 2021-01-02 08:03 | Physician Query-Final Dx ---
GILDARDO CORNEJO 01/02/21 0803: Clinic Account Progress/Dx Physician Query: Please give diagnosis Please include # weeks gestation Date of Service Jan 01, 2021 at 23:56 STEVEN BARKER MD 01/03/21 0835: Clinic Account Progress/Dx DIAGNOSIS: Diagnosis Abdominal pain complicating 39 weeks gestation GILDARDO CORNEJO Jan 02, 2021 08:03 STEVEN BARKER MD Jan 03, 2021 08:35
[2021-01-03] MEDS ORDERED: METR500T PO (07:55)
== END 2021-01-02 01:00 | disposition home or self-care (01) ==
LOC: WSo 23:56 → LDRP 23:57 → WSo 01-02 01:00
PROVIDERS: ATTEND Family Medicine
DX: O26.893 Other specified pregnancy related conditions, third trimester (principal); R10.9 Unspecified abdominal pain; Z3A.39 39 weeks gestation of pregnancy
CPT/HCPCS: 81000; 87088; G0463; 99213

== ENCOUNTER → 2021-01-01 | Outpatient (CLI) | payer BC, MEDICAID ==
[~2021-01-01] MED LIST changes: +METR500T PO
[2021-01-01 18:13] LABS: BASOPHILS % (AUTO) 0 % (0-10); EOSINOPHILS # (AUTO) 0.1 10^3/uL (0.0-0.3); EOSINOPHILS % (AUTO) 1 % (0-10); HEMATOCRIT 33 % (35-52); HEMOGLOBIN 10.8 g/dL (11.5-16.0); LYMPHOCYTES # (AUTO) 1.6 10^3/uL (1.0-4.0); LYMPHOCYTES % (AUTO) 20 % (12-44); MEAN CORPUSCULAR HEMOGLOBIN 28 pg (25-34); MEAN CORPUSCULAR HGB CONC 33 g/dL (32-36); MEAN CORPUSCULAR VOLUME 83 fL (80-99); MONOCYTES # (AUTO) 0.4 10^3/uL (0.0-1.0); MONOCYTES % (AUTO) 5 % (0-12); NEUTROPHILS # (AUTO) 5.6 10^3/uL (1.8-7.8); NEUTROPHILS % (AUTO) 73 % (42-75); PLATELET COUNT 281 10^3/uL (130-400); WHITE BLOOD COUNT 7.7 10^3/uL (4.3-11.0)
[2021-01-01 18:41] LABS: ALBUMIN 3.5 GM/DL (3.2-4.5); CHLORIDE 107 MMOL/L (98-107); SODIUM 137 MMOL/L (135-145)
[2021-01-01 18:42] LABS: CALCIUM 8.9 MG/DL (8.5-10.1)
[2021-01-01 18:43] LABS: GLUCOSE 80 MG/DL (70-105)
[2021-01-01 18:44] LABS: TOTAL PROTEIN 7.3 GM/DL (6.4-8.2)
[2021-01-01 18:45] LABS: BILIRUBIN,TOTAL 0.2 MG/DL (0.1-1.0); CARBON DIOXIDE 18 MMOL/L (21-32)
[2021-01-01 18:47] LABS: ALKALINE PHOSPHATASE 133 U/L (40-136); CREATININE SERUM 0.73 MG/DL (0.60-1.30); GFR ESTIMATED > 60
[2021-01-01 18:48] LABS: BUN/CREATININE RATIO 12
[2021-01-01 18:50] LABS: ALANINE AMINOTRANSFERASE 13 U/L (0-55); URIC ACID 5.1 MG/DL (2.6-7.2)
== END ==
LOC: LAB 17:41
PROVIDERS: ATTEND Family Medicine
DX: O13.3 Gestational [pregnancy-induced] hypertension without significant proteinuria, third trimester (principal); Z3A.00 Weeks of gestation of pregnancy not specified
CPT/HCPCS: 36415; 80053; 82570; 84156; 84550; 85025

== ENCOUNTER 2021-01-02 17:22 | Observation (INO) | payer OTHER, BC, MEDICAID ==
[~2021-01-02] VITALS: Ht 157.5 cm; Wt 136.1 kg
[2021-01-02 18:03] LABS: BILIRUBIN,URINE NEGATIVE (NEGATIVE); CLARITY,URINE CLEAR; COLOR,URINE YELLOW; GLUCOSE, URINE (UA) NEGATIVE (NEGATIVE); KETONES,URINE NEGATIVE (NEGATIVE); LEUKOCYTE ESTERASE ,URINE TRACE (NEGATIVE); NITRITE,URINE NEGATIVE (NEGATIVE); PROTEIN,URINE NEGATIVE (NEGATIVE)
[2021-01-02 18:13] LABS: BACTERIA,URINE FEW /HPF; RBC,URINE 0-2 /HPF
[2021-01-02 18:14] LABS: AMORPHOUS SEDIMENT,UR RARE AMOR URATES /LPF
[2021-01-02 18:46] VITALS: BP 165/92
[2021-01-02 18:56] VITALS: BP 165/92
[2021-01-02 19:18] LABS: BASOPHILS % (AUTO) 0 % (0-10); EOSINOPHILS # (AUTO) 0.1 10^3/uL (0.0-0.3); EOSINOPHILS % (AUTO) 1 % (0-10); HEMATOCRIT 34 % (35-52); HEMOGLOBIN 10.9 g/dL (11.5-16.0); LYMPHOCYTES # (AUTO) 1.8 10^3/uL (1.0-4.0); LYMPHOCYTES % (AUTO) 23 % (12-44); MEAN CORPUSCULAR HEMOGLOBIN 27 pg (25-34); MEAN CORPUSCULAR HGB CONC 32 g/dL (32-36); MEAN CORPUSCULAR VOLUME 85 fL (80-99); MEAN PLATELET VOLUME 10.9 fL (9.0-12.2); MONOCYTES # (AUTO) 0.4 10^3/uL (0.0-1.0); MONOCYTES % (AUTO) 5 % (0-12); NEUTROPHILS # (AUTO) 5.3 10^3/uL (1.8-7.8); NEUTROPHILS % (AUTO) 70 % (42-75); PLATELET COUNT 280 10^3/uL (130-400); WHITE BLOOD COUNT 7.6 10^3/uL (4.3-11.0)
[2021-01-02 19:20] VITALS: BP 140/83
[2021-01-02 19:28] LABS: ALBUMIN 3.4 GM/DL (3.2-4.5); CHLORIDE 108 MMOL/L (98-107); SODIUM 138 MMOL/L (135-145)
[2021-01-02 19:29] LABS: CALCIUM 9.2 MG/DL (8.5-10.1)
[2021-01-02 19:30] LABS: GLUCOSE 76 MG/DL (70-105); TOTAL PROTEIN 7.1 GM/DL (6.4-8.2)
[2021-01-02 19:31] LABS: CARBON DIOXIDE 19 MMOL/L (21-32)
[2021-01-02 19:32] LABS: BILIRUBIN,TOTAL 0.3 MG/DL (0.1-1.0)
[2021-01-02 19:34] LABS: ALKALINE PHOSPHATASE 129 U/L (40-136); CREATININE SERUM 0.73 MG/DL (0.60-1.30); GFR ESTIMATED > 60
[2021-01-02 19:35] LABS: BUN/CREATININE RATIO 10
[2021-01-02 19:37] LABS: ALANINE AMINOTRANSFERASE 15 U/L (0-55); URIC ACID 4.9 MG/DL (2.6-7.2)
[2021-01-02 20:20] VITALS: BP 122/66
[2021-01-03 02:00] VITALS: BP 139/63
[2021-01-03 06:20] VITALS: BP 141/97
[2021-01-03 06:50] VITALS: BP 128/87
[2021-01-03 07:20] VITALS: BP 121/84
[2021-01-03 07:50] VITALS: BP 134/62
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
[2021-01-03] MEDS ORDERED: METR500T PO (07:55)
== END 2021-01-03 09:15 | disposition home or self-care (01) ==
LOC: WSo 17:22 → LDRP 17:24 → UNDOADMOB 20:35 → LDRP 20:35 → WSo 22:02 → LDRP 22:02 → WSo 01-03 09:15 → LDRP 01-03 09:15 → UNDODISOB 01-03 09:15 → EDSTATUS 01-07 09:34
PROVIDERS: ADMIT Family Medicine; ATTEND Family Medicine
DX: Z04.1 Encounter for examination and observation following transport accident (principal); A59.9 Trichomoniasis, unspecified; Z88.0 Allergy status to penicillin; Z3A.39 39 weeks gestation of pregnancy; V49.9XXA Car occupant (driver) (passenger) injured in unspecified traffic accident, initial encounter
CPT/HCPCS: 80053; 81000; 82570; 83615; 84156; 84550; 85025; 85027; 87077; 87088; G0378; G0379; 36415; 99211

== ENCOUNTER 2021-01-09 02:12 | Inpatient (IN) | payer BC, MEDICAID ==
[~2021-01-09] VITALS: Ht 157.5 cm; Wt 138.4 kg
[~2021-01-09 02:12] MED LIST changes: +METR500T PO
[2021-01-09 19:10] VITALS: BP 133/85
[2021-01-09] MEDS ORDERED: D5 LR IV SOLUTION 1,000 ML IV ONE (19:17)
[2021-01-09] MEDS ORDERED: TERBUTALINE INJ 1 MG/ML (BRETHINE) AMP SC PRN (19:30)
[2021-01-09] MEDS ORDERED: MINERAL OIL CONCENTRATE 99.9% 15 ML UDC TOP PRN (19:30)
[2021-01-09] MEDS ORDERED: VANCOMYCIN INJECTION 2,000 MG in NS IV 500 ML 500 ML IV ONE (19:30)
[2021-01-09] MEDS ORDERED: MISOPROSTOL 100 MCG (CYTOTEC) TAB PO NR (19:30)
[2021-01-09 19:31] LABS: BILIRUBIN,URINE NEGATIVE (NEGATIVE); CLARITY,URINE CLEAR; COLOR,URINE YELLOW; GLUCOSE, URINE (UA) NEGATIVE (NEGATIVE); KETONES,URINE NEGATIVE (NEGATIVE); LEUKOCYTE ESTERASE ,URINE 2+ (NEGATIVE); NITRITE,URINE NEGATIVE (NEGATIVE); PH,URINE 6.5 (5-9); PROTEIN,URINE NEGATIVE (NEGATIVE)
[2021-01-09 19:38] LABS: BACTERIA,URINE LARGE /HPF
[2021-01-09] MEDS: D5 LR IV SOLUTION 1,000 ML IV SCH (19:52)
[2021-01-09] MEDS ORDERED: NS IV 500 ML 500 ML ONE (20:10)
[2021-01-09] MEDS ORDERED: NS IV 500 ML 500 ML IV ONE (20:15)
[2021-01-09 20:37] LABS: BASOPHILS % (AUTO) 0 % (0-10); EOSINOPHILS # (AUTO) 0.3 10^3/uL (0.0-0.3); EOSINOPHILS % (AUTO) 4 % (0-10); HEMATOCRIT 31 % (35-52); HEMOGLOBIN 10.2 g/dL (11.5-16.0); LYMPHOCYTES # (AUTO) 1.7 10^3/uL (1.0-4.0); LYMPHOCYTES % (AUTO) 23 % (12-44); MEAN CORPUSCULAR HEMOGLOBIN 28 pg (25-34); MEAN CORPUSCULAR HGB CONC 33 g/dL (32-36); MEAN CORPUSCULAR VOLUME 85 fL (80-99); MEAN PLATELET VOLUME 11.5 fL (9.0-12.2); MONOCYTES # (AUTO) 0.4 10^3/uL (0.0-1.0); MONOCYTES % (AUTO) 6 % (0-12); NEUTROPHILS % (AUTO) 67 % (42-75); PLATELET COUNT 260 10^3/uL (130-400); WHITE BLOOD COUNT 7.5 10^3/uL (4.3-11.0)
[2021-01-09 20:45] VITALS: BP 137/73
[2021-01-09] MEDS ORDERED: ONDANSETRON 4 MG/2 ML (SDV) Z0FRAN ONE (21:07)
[2021-01-09] MEDS ORDERED: diphenhydrAMINE 25 MG TAB (BENADRYL) PO ONE ×2 (21:08→21:15)
[2021-01-09] MEDS ORDERED: ONDANSETRON 4 MG/2 ML (SDV) Z0FRAN IVP PRN (21:15)
[2021-01-09 21:55] VITALS: BP 125/72
[2021-01-09] MEDS: CLINDAMYCIN 900 MG/50 ML IVPB 50 ML IV SCH (21:58)
[2021-01-09] MEDS: CATHETER FLUSH 10 ML SYR IV SCH (22:25)
[2021-01-10] VITALS (47 sets, daily range): BP systolic 112–167; BP diastolic 56–110
[2021-01-10] MEDS: MISOPROSTOL 100 MCG (CYTOTEC) TAB PO SCH ×2 (00:49→04:41)
[2021-01-10] MEDS: D5 LR IV SOLUTION 1,000 ML IV SCH ×3 (04:39→20:20)
[2021-01-10] MEDS: CLINDAMYCIN 900 MG/50 ML IVPB 50 ML IV SCH ×3 (05:20→21:33)
[2021-01-10] MEDS: CATHETER FLUSH 10 ML SYR IV SCH ×2 (05:27→21:59)
[2021-01-10] MEDS ORDERED: VANCOMYCIN INJECTION 1,000 MG in NS (IVPB) 250 ML IV SCH (08:00)
[2021-01-10] MEDS ORDERED: MISOPROSTOL 100 MCG (CYTOTEC) TAB PO ONE (09:45)
[2021-01-10] MEDS: OXYTOCIN PRE-MIX DRIP 500 ML IV SCH (14:29)
--- NOTE | 2021-01-10 18:52 | History & Physical-OB ---
OB - Chief Complaint & HPI Date/Time Date of Admission: Date of Admission: Jan 09, 2021 at 18:47 Date seen by a Provider: Jan 10, 2021 Time Seen by a Provider: 18:10 Chief Complaint/History OB-Reason for Admission/Chief: Induction of Labor Hx : 1 Hx Para: 0 Expected Date of Delivery: Jan 05, 2021 Gestational Age in Weeks: 40 Gestational Age in Days: 4 Indication for induction: post dates Allergies and Home Medications Allergies Coded Allergies: Penicillins (Verified Allergy, Intermediate, RASH, 09/27/20) Patient Home Medication List Home Medication List Reviewed: Yes OB - History Hx of Present Care: Yes Ultrasounds: Normal mid trimester US Obstetrical Complications: Other (Elevated blood pressure in ) Medical Complications: Other (Obesity) Obstetrical History Hx : 1 Hx Para: 0 Delivery History Hx Blood Disorders: No Patient Past Medical History NONE Immunizations Tetanus Booster (TDap): Less than 5yrs Date of Influenza Vaccine: Oct 09, 2020 RPR/VDRL: Negative GBS Status: Positive HBsAG: Negative OB - Admission Exam Physical Exam Vitals: Vital Signs 01/10/21 01/10/21 12:20 17:15 Temp 37.5 Pulse 65 Resp 22 B/P (MAP) 112/65 (81) Pulse Ox 99 O2 Delivery Room Air HEENT: NCAT Heart: Rhythm Normal Lungs: Clear Cervical Dilatation: Fingertip Effacement: 25% Station: Ballotable Membranes: Intact Accelerations: Accelerations Present Decelerations: No Decelerations Contractions on Admission: 6-10 Minutes Apart Intensity: Mild Sanchez Scoring Tool (Modified) Dilation (cm): 1-2cm (1) Effacement (%): 0-30% (0) Descent/Station: -3 (0) Cervix Consistency: Firm (0) Cervix Position: Posterior (0) Labs Laboratory Tests Test 01/09/21 19:00 01/09/21 20:25 Range/Units Urine Color YELLOW Urine Clarity CLEAR Urine pH 6.5 5-9 Urine Specific [place] <=1.005 1.016-1.022 Urine Protein NEGATIVE NEGATIVE Urine Glucose (UA) NEGATIVE NEGATIVE Urine Ketones NEGATIVE NEGATIVE Urine Nitrite NEGATIVE NEGATIVE Urine Bilirubin NEGATIVE NEGATIVE Urine Urobilinogen 0.2 < = 1.0 MG/DL Urine Leukocyte Esterase 2+ H NEGATIVE Urine RBC (Auto) NEGATIVE NEGATIVE Urine RBC NONE /HPF Urine WBC 10-25 H /HPF Urine Squamous Epithelial Cells 10-25 H /HPF Urine Crystals NONE /LPF Urine Bacteria LARGE H /HPF Urine Casts NONE /LPF Urine Mucus NEGATIVE /LPF Urine Culture Indicated YES White Blood Count 7.5 4.3-11.0 10^3/uL Red Blood Count 3.68 L 3.80-5.11 10^6/uL Hemoglobin 10.2 L 11.5-16.0 g/dL Hematocrit 31 L 35-52 % Mean Corpuscular Volume 85 80-99 fL Mean Corpuscular Hemoglobin 28 25-34 pg Mean Corpuscular Hemoglobin Concent 33 32-36 g/dL Red Cell Distribution Width 13.8 10.0-14.5 % Platelet Count 260 130-400 10^3/uL Mean Platelet Volume 11.5 9.0-12.2 fL Immature Granulocyte % (Auto) 1 % Neutrophils (%) (Auto) 67 42-75 % Lymphocytes (%) (Auto) 23 12-44 % Monocytes (%) (Auto) 6 0-12 % Eosinophils (%) (Auto) 4 0-10 % Basophils (%) (Auto) 0 0-10 % Neutrophils # (Auto) 5.0 1.8-7.8 10^3/uL Lymphocytes # (Auto) 1.7 1.0-4.0 10^3/uL Monocytes # (Auto) 0.4 0.0-1.0 10^3/uL Eosinophils # (Auto) 0.3 0.0-0.3 10^3/uL Basophils # (Auto) 0.0 0.0-0.1 10^3/uL Immature Granulocyte # (Auto) 0.0 0.0-0.1 10^3/uL OB - Assessment/Plan/Diagnosis Assessment Assessment: induction of labor Admission Dx Third Trimester 40 week gestation Obesity in Gestational HTN Admission Status: Inpatient Order (span 2 midnights) Reason for Inpatient Admission: IOL Plan Plan: Induction Other Plan 20 yo G1 @ 40.2 wga here for IOL Plan - Cytotec Protocol - GBS +, PCN allergy, Continue Clindamycin LUKAS HARPER MD Jan 10, 2021 18:52
[2021-01-10] MEDS ORDERED: BUTORPHANOL INJ 2 MG/ML (STADOL) VIAL ONE (20:29)
[2021-01-10] MEDS ORDERED: BUTORPHANOL INJ 2 MG/ML (STADOL) VIAL IV PRN (20:45)
[2021-01-10] MEDS ORDERED: fentaNYL 2 mcg/ml BUPIVA 0.125 100 ML ONE (21:59)
[2021-01-10] MEDS ORDERED: LACTATED RINGERS 1,000 ML IV SCH (22:00)
[2021-01-10] MEDS ORDERED: fentaNYL INJECTION 100 MCG/2 ML AMP ONE (22:16)
[2021-01-10] MEDS ORDERED: LIDOCAINE PF 2% 5 ML (XYLOCAINE) VIAL ONE (23:02)
[2021-01-10] MEDS ORDERED: BUPIVACAINE 0.25% 30 ML (SENSORCAINE) VIAL ONE (23:02)
[2021-01-10] MEDS: EPIDURAL (fentaNYL 2 MCG/ML BUPIVA 0.125%)100 ML BAG EPI PRN (23:11)
[2021-01-10] MEDS ORDERED: fentaNYL INJECTION 100 MCG/2 ML AMP INJ ONE (23:15)
[2021-01-10] MEDS ORDERED: NALOXONE 0.4 MG/ML 1 ML (NARCAN) VIAL IV PRN (23:15)
[2021-01-10] MEDS ORDERED: LACTATED RINGERS 1,000 ML IV ONE ×2 (23:15)
[2021-01-10] MEDS ORDERED: ONDANSETRON 4 MG/2 ML (SDV) Z0FRAN IV PRN (23:15)
[2021-01-11] VITALS (52 sets, daily range): BP systolic 122–169; BP diastolic 60–94
[2021-01-11] MEDS: D5 LR IV SOLUTION 1,000 ML IV SCH (03:27)
[2021-01-11] MEDS: CLINDAMYCIN 900 MG/50 ML IVPB 50 ML IV SCH (05:27)
[2021-01-11] MEDS: CATHETER FLUSH 10 ML SYR IV SCH (05:48)
[2021-01-11] MEDS: EPIDURAL (fentaNYL 2 MCG/ML BUPIVA 0.125%)100 ML BAG EPI PRN (06:42)
[2021-01-11] MEDS ORDERED: LIDOCAINE PF 2% 5 ML (XYLOCAINE) VIAL ONE (09:11)
[2021-01-11] MEDS ORDERED: BUPIVACAINE 0.25% 30 ML (SENSORCAINE) VIAL ONE (09:11)
[2021-01-11] MEDS ORDERED: MINERAL OIL CONCENTRATE 99.9% 15 ML UDC PO ONE (12:00)
[2021-01-11] MEDS: OXYTOCIN PRE-MIX DRIP 500 ML IV SCH ×2 (13:01→13:41)
[2021-01-11] MEDS ORDERED: MEASLES,MUMPS,RUBELLA 1 EA INJ SQ ONE (13:30)
[2021-01-11] MEDS ORDERED: BENZOCAINE/MENTHOL (DERMOPLAST) 60 ML CAN TP PRN (13:30)
[2021-01-11] MEDS ORDERED: OXYTOCIN PRE-MIX DRIP 500 ML IV SCH (13:30)
[2021-01-11] MEDS ORDERED: WITCH HAZEL(TUCKS) 40 EA JAR TOP PRN (13:30)
[2021-01-11] MEDS ORDERED: TETANUS,DIPTH,PERTUSS P/F (BOOSTRIX) 0.5 ML VIAL IM ONE (13:30)
[2021-01-11] MEDS: IBUPROFEN 600 MG (MOTRIN) TAB PO SCH ×2 (13:40→20:56)
--- NOTE | 2021-01-11 13:53 | OB Labor & Delivery Record ---
Vag Delivery Note Vag Delivery Note Date of Delivery: 01/11/21 Preoperative Diagnosis: Indianolakevin Cevallos is a (20 /Para 1 / 0,Gestational Age (wks)40.5 wga here for IOL for Postdates and gestational HTN Postoperative Diagnosis: Same Surgeon: LUKAS HARPER Assistant Professor Sculpture: Camille Lopez MS4 Anesthesia: epidural Delivery Type: Vaccum assisted vaginal mary @ 7214 Findings: Viable Male , apgars 8/9, weight 7#4, 3290 grams Lacerations: 3rd degree laceration Intact placenta with 3 vessel cord. No nuchal cord, body cord or shoulder dystocia Estimated Blood Loss: 150 ml Complications: None Condition: Stable Description of Procedure: The patient is a 20 year old female who presented for IOL for post dates and gestational HTN. She was admitted and informed consent was obtained. Her labor course was unremarkable. She progressed to complete dilatation and began to push. She was then set up for delivery. The 's head was delivered atraumatically in the KHADAR position. The shoulders and remainder of the 's body were then delivered without difficulty. Upon delivery, the head was held below the level of the perineum and the mouth and nares were bulb suctioned. The cord was doubly clamped and cut after 2 min delay and the was attended to by the pediatric staff on maternal abdomen. An intact placenta with 3-vessel cord delivered via Lucille and there was found to be minimal bleeding.~ Vigorous fundal massage was performed and the fundus was found to be firm. IV oxytocin was given. Examination of the vagina and perineum revealed a 3rd degree laceration repaired in the usual fashion with 3-0 Rapid suture. Following the repair, sponge, instrument and needle counts were correct. Mom and baby were b oth in stable condition in the labor suite. Vitals - Labs Vital Signs - I&O Vital Signs Date Time Temp Pulse Resp B/P (MAP) Pulse Ox O2 Delivery O2 Flow Rate FiO2 01/11/21 10:10 76 20 144/88 (106) 97 Room Air 01/11/21 09:55 76 20 132/90 (104) 97 Room Air 01/11/21 09:40 100 20 145/89 (107) 97 Room Air 01/11/21 09:25 72 20 140/78 (98) 97 Room Air 01/11/21 09:10 108 20 141/90 (107) 97 Room Air 01/11/21 08:55 97 20 144/80 (101) 97 Room Air 01/11/21 08:40 81 20 133/80 (97) 97 Room Air 01/11/21 08:30 88 20 135/77 (96) 97 Room Air 01/11/21 08:15 88 20 134/83 (100) 97 Room Air 01/11/21 07:40 78 20 140/78 (98) Room Air 01/11/21 07:10 37.1 100 20 132/66 (88) Room Air 01/11/21 06:40 96 20 134/80 (98) Room Air 01/11/21 06:25 96 20 135/86 (102) Room Air 01/11/21 06:10 91 20 132/74 (93) Room Air 01/11/21 05:55 96 20 139/78 (98) Room Air 01/11/21 05:40 96 20 122/67 (85) Room Air 01/11/21 05:25 100 20 130/75 (93) Room Air 01/11/21 05:10 83 20 125/73 (90) Room Air 01/11/21 04:40 37.2 86 20 161/91 (114) Room Air 01/11/21 04:25 92 20 155/83 (107) Room Air 01/11/21 04:10 83 20 149/79 (102) Room Air 01/11/21 03:55 85 20 147/82 (103) Room Air 01/11/21 03:40 88 20 142/81 (101) Room Air 01/11/21 03:25 92 20 145/91 (109) Room Air 01/11/21 03:10 88 20 167/82 (110) Room Air 01/11/21 02:55 36.9 103 20 164/94 (117) Room Air 01/11/21 02:40 67 20 131/71 (91) Room Air 01/11/21 02:25 71 20 133/74 (93) Room Air 01/11/21 02:10 80 20 128/71 (90) Room Air 01/11/21 01:55 88 20 138/76 (96) Room Air 01/11/21 01:40 77 20 134/70 (91) Room Air 01/11/21 01:35 36.9 01/11/21 01:25 82 20 129/60 (83) Room Air 01/11/21 01:10 75 20 131/68 (89) Room Air 01/11/21 00:55 82 20 131/78 (95) Room Air 01/11/21 00:40 70 20 129/69 (89) Room Air 01/11/21 00:25 74 20 134/71 (92) Room Air 01/11/21 00:10 81 20 131/70 (90) Room Air 01/10/21 23:55 80 20 135/67 (89) Room Air 01/10/21 23:35 89 20 131/75 (93) 97 Room Air 01/10/21 23:30 88 20 140/84 (102) 92 Room Air 01/10/21 23:25 92 20 129/74 (92) 98 Room Air 01/10/21 23:20 91 20 100 Room Air 01/10/21 23:15 87 20 121/58 (79) 100 Room Air 01/10/21 23:12 92 20 114/58 (76) 93 Room Air 01/10/21 23:09 99 20 124/66 (85) 100 Room Air 01/10/21 23:06 91 22 115/56 (75) 100 Room Air 01/10/21 23:03 100 22 120/59 (79) 100 Room Air 01/10/21 22:56 117 22 127/75 (92) 99 Room Air 01/10/21 22:53 92 22 127/70 (89) 98 Room Air 01/10/21 22:50 108 22 144/79 (100) 98 Room Air 01/10/21 22:47 97 22 151/84 (106) 98 Room Air 01/10/21 22:43 87 22 148/85 (106) 98 Room Air 01/10/21 22:40 36.0 91 22 167/110 (129) 98 Room Air 01/10/21 22:25 85 22 155/93 (113) 100 Room Air 01/10/21 22:10 77 22 140/78 (98) Room Air 01/10/21 21:55 76 22 133/77 (95) Room Air 01/10/21 21:35 80 20 134/77 (96) Room Air 01/10/21 21:20 66 20 138/86 (103) Room Air 01/10/21 21:10 79 20 146/94 (111) Room Air 01/10/21 20:55 61 20 122/77 (92) Room Air 01/10/21 20:35 75 22 128/61 (83) Room Air 01/10/21 19:45 36.9 76 22 122/67 (85) Room Air 01/10/21 19:15 76 22 125/76 (92) Room Air 01/10/21 19:00 68 22 118/64 (82) Room Air 01/10/21 18:45 Room Air 01/10/21 18:30 73 22 124/78 (93) Room Air 01/10/21 18:15 70 22 131/76 (94) Room Air 01/10/21 18:00 72 22 134/66 (88) Room Air 01/10/21 17:45 59 22 130/59 (82) Room Air 01/10/21 17:30 70 22 119/70 (86) Room Air 01/10/21 17:15 37.5 65 22 112/65 (81) Room Air 01/10/21 17:00 58 22 129/61 (83) Room Air 01/10/21 16:45 63 22 127/64 (85) Room Air 01/10/21 16:30 Room Air 01/10/21 16:15 78 22 128/65 (86) Room Air 01/10/21 16:00 72 22 130/67 (88) Room Air 01/10/21 15:45 37.6 81 22 128/78 (95) Room Air 01/10/21 15:30 63 22 122/76 (91) Room Air 01/10/21 15:15 65 22 136/64 (88) Room Air 01/10/21 15:00 74 22 146/73 (97) Room Air 01/10/21 14:45 75 22 150/67 (94) Room Air 01/10/21 14:40 78 145/88 (107) Room Air 01/10/21 14:30 68 22 162/86 (111) Room Air I & O 01/11/21 07:00 Intake Total 4000 ml Balance 4000 ml Labs Microbiology 01/09/21 Urine Culture - Final, Complete 3 or more isolates LUKAS HARPER MD Jan 11, 2021 13:53
[2021-01-11] MEDS ORDERED: CATHETER FLUSH 10 ML SYR IV SCH (14:00)
[2021-01-11] MEDS: DOCUSATE SODIUM 100 MG (COLACE) CAP PO SCH (20:56)
[2021-01-11] MEDS: ACETAMINOPHEN 500 MG TAB (TYLENOL) PO SCH (20:57)
[2021-01-12 02:00] VITALS: BP 120/69
[2021-01-12] MEDS: ACETAMINOPHEN 500 MG TAB (TYLENOL) PO SCH ×4 (02:06→19:50)
[2021-01-12] MEDS: IBUPROFEN 600 MG (MOTRIN) TAB PO SCH ×4 (02:06→19:47)
[2021-01-12 06:15] VITALS: BP 136/85
[2021-01-12 07:16] LABS: BASOPHILS % (AUTO) 0 % (0-10); EOSINOPHILS # (AUTO) 0.1 10^3/uL (0.0-0.3); EOSINOPHILS % (AUTO) 1 % (0-10); HEMATOCRIT 27 % (35-52); HEMOGLOBIN 8.7 g/dL (11.5-16.0); LYMPHOCYTES # (AUTO) 1.9 10^3/uL (1.0-4.0); LYMPHOCYTES % (AUTO) 20 % (12-44); MEAN CORPUSCULAR HEMOGLOBIN 28 pg (25-34); MEAN CORPUSCULAR HGB CONC 33 g/dL (32-36); MEAN CORPUSCULAR VOLUME 85 fL (80-99); MEAN PLATELET VOLUME 11.6 fL (9.0-12.2); MONOCYTES # (AUTO) 0.5 10^3/uL (0.0-1.0); MONOCYTES % (AUTO) 6 % (0-12); NEUTROPHILS # (AUTO) 6.7 10^3/uL (1.8-7.8); NEUTROPHILS % (AUTO) 73 % (42-75); PLATELET COUNT 200 10^3/uL (130-400); WHITE BLOOD COUNT 9.3 10^3/uL (4.3-11.0)
[2021-01-12] MEDS: DOCUSATE SODIUM 100 MG (COLACE) CAP PO SCH ×2 (08:19→19:47)
[2021-01-12 08:24] VITALS: BP 133/78
--- NOTE | 2021-01-12 10:42 | Postpartum Progress Note ---
Note Note Day # 1 Subjective: Patient is without complaints. Ambulating, voiding. Tolerating a regular diet without nausea or vomiting. Normal lochia. Pain is well controlled with oral pain medications. feeding breast improving in the last 10 hrs. No other concerns per patient Objective Physical Exam: General - Alert and oriented, no apparent distress Abdomen - Soft, appropriately tender to palpation, non-distended, fundus firm at umbilicus Extremities - no edema, negative Abby's bilaterally Assessment: 20 yo G1 now P1 post- day # 1, status post vacuum assisted vaginal delivery. Recovering well, hemodynamically stable Plan: Routine care. Encourage breast feeding. Encourage ambulation. Ferrous sulfate supplementation. Plan for discharge tomorrow Vitals - Labs Vital Signs - I&O Vital Signs Date Time Temp Pulse Resp B/P (MAP) Pulse Ox O2 Delivery O2 Flow Rate FiO2 01/12/21 08:24 36.7 95 18 133/78 (96) 98 Room Air 01/12/21 06:15 36.7 92 16 136/85 (102) 98 Room Air 01/12/21 02:00 36.7 88 16 120/69 (86) 99 Room Air 01/11/21 21:00 37.2 95 16 132/83 (99) 99 Room Air 01/11/21 15:55 36.5 96 20 124/65 (84) Room Air 01/11/21 15:25 104 20 155/87 (109) Room Air 01/11/21 14:55 94 20 143/92 (109) Room Air 01/11/21 14:25 96 20 142/75 (97) Room Air 01/11/21 13:50 112 20 140/70 (93) Room Air 01/11/21 13:40 36.8 111 20 135/71 (92) Room Air 01/11/21 13:25 37.0 110 20 147/83 (104) Room Air 01/11/21 13:10 37.1 105 20 150/77 (101) Room Air 01/11/21 12:55 37.1 130 20 158/69 (98) Room Air 01/11/21 12:40 127 20 159/90 (113) Room Air 01/11/21 12:10 85 20 151/74 (99) Room Air 01/11/21 12:00 78 20 160/77 (104) Room Air 01/11/21 11:55 37.4 150 20 169/89 (115) Room Air Labs Laboratory Tests 01/12/21 07:10: White Blood Count 9.3, Red Blood Count 3.14L, Hemoglobin 8.7L, Hematocrit 27L, Mean Corpuscular Volume 85, Mean Corpuscular Hemoglobin 28, Mean Corpuscular Hemoglobin Concent 33, Red Cell Distribution Width 14.2, Platelet Count 200, Mean Platelet Volume 11.6, Immature Granulocyte % (Auto) 1, Neutrophils (%) (Auto) 73, Lymphocytes (%) (Auto) 20, Monocytes (%) (Auto) 6, Eosinophils (%) (Auto) 1, Basophils (%) (Auto) 0, Neutrophils # (Auto) 6.7, Lymphocytes # (Auto) 1.9, Monocytes # (Auto) 0.5, Eosinophils # (Auto) 0.1, Basophils # (Auto) 0.0, Immature Granulocyte # (Auto) 0.1 Microbiology 01/09/21 Urine Culture - Final, Complete 3 or more isolates LUKAS HARPER MD Jan 12, 2021 10:42
--- NOTE | 2021-01-12 12:30 | Anesthesia-Regional Post-Op ---
Regional Patient Condition Mental Status: Alert, Oriented x3 Circulation: Same as Pre-Op Headache: Absent Sensation: Full Recovery Motor Block: Absent Post Op Complications Complications None Follow Up Care/Instructions Patient Instructions None needed. Anesthesia/Patient Condition Patient is doing well, no complaints, stable vital signs, no apparent adverse anesthesia problems. No complications reported per nursing. D/C home per [facility] [place]: Yes KYLEE SYKES CRNA Jan 12, 2021 12:30
[2021-01-12 14:20] VITALS: BP 137/75
[2021-01-12 19:45] VITALS: BP 132/71
[2021-01-13] MEDS: ACETAMINOPHEN 500 MG TAB (TYLENOL) PO SCH ×2 (02:06→09:16)
[2021-01-13] MEDS: IBUPROFEN 600 MG (MOTRIN) TAB PO SCH ×2 (02:06→09:15)
[2021-01-13 02:17] VITALS: BP 135/78
--- NOTE | 2021-01-13 08:51 | Discharge Summary ---
Diagnosis/Chief Complaint Date of Admission Jan 09, 2021 at 18:47 Date of Discharge 01/13/2021 Admission Diagnosis Admission Diagnosis Third Trimester 40 week gestation Obesity in Gestational HTN Discharge Diagnosis Term Vaacum assisted vaginal delivery 3rd degree perineal laceration Discharge Summary-Simple/Stand Procedures Epidural placement Vaacum assisted vaginal delivery Discharge Physical Examination Allergies: Coded Allergies: Penicillins (Verified Allergy, Intermediate, RASH, 09/27/20) Vitals & I&Os Vital Sign - Last 12Hours Date Time Temp Pulse Resp B/P (MAP) Pulse Ox O2 Delivery O2 Flow Rate FiO2 01/13/21 02:17 36.7 83 18 135/78 (97) 97 01/12/21 14:20 Room Air General Appearance: Alert, Oriented X3, Cooperative, No Acute Distress Respiratory: Clear to Auscultation, Normal Air Movement Cardiovascular: Regular Rate, No Murmurs Abdominal: Normal Bowel Sounds, Soft, No Tenderness, Other (fundus below umbilicus) Extremities: Other (1+ pitting edema bilaterally) Hospital Course Was the Problem List Reviewed?: Yes See final discharge diagnosis. Discussion & Recommendations 20 yo G1 now P1 delivered term male via vaacum assisted vaginal delivery after maternal exhaustion and 3rd degree perineal laceration repair Discharge Condition at discharge Stable Instructions to patient/family Please see electronic discharge instructions given to patient. Discharge Medications Reviewed and agree with Discharge Medication list on patient's Discharge Instruction sheet LKUAS HARPER MD Jan 13, 2021 08:51
[2021-01-13] MEDS ORDERED: IBUP-844 PO (08:52)
--- NOTE | 2021-01-13 08:53 | Discharge Summary ---
Discharge Inst-[facility] Reconcile Patient Problems Problems Reviewed?: Yes Depart Medications New, Converted or Re-Newed RX: Transmitted to Pharmacy New Medications: Ibuprofen (Ibu) 600 Mg Tablet 600 MG PO Q6H, #60 TAB Follow Up/Instructions Goal/Follow Up: 6 week PP f.u with Romie Activity Activity: Activity as Tolerated Driving Instructions: You May Drive NO SMOKING: NO SMOKING Nothing Inside Vagina: No Douching, No [place] Diet Discharge Diet: No Restrictions Symptoms to Report to DrCorina: Swelling Increased, Bleeding Excessive, Fever Over 101 Degrees F For Any Problems or Questions: Contact Your Physician Skin/Wound Care Infection Signs and Symptoms: Increased Redness, Foul Odor of Wound, Increased Drainage LUKAS HARPER MD Jan 13, 2021 08:53
[2021-01-13] MEDS: DOCUSATE SODIUM 100 MG (COLACE) CAP PO SCH (09:15)
[2021-01-13 09:18] VITALS: BP 144/76
[2021-01-13] MEDS ORDERED: FUROSEMIDE 20 MG (LASIX) TAB PO ONE (09:30)
[2021-01-13] MEDS ORDERED: FUROSEMIDE 20 MG (LASIX) TAB ONE (09:38)
== END 2021-01-13 11:20 | disposition home or self-care (01) | DRG 768 ==
LOC: LDRP 18:47
PROVIDERS: ADMIT Family Medicine; ATTEND Family Medicine
PROC: 10D07Z6 Extraction of Products of Conception, Vacuum, Via Natural or Artificial Opening (ICD-10-PCS; principal; 2021-01-11)
PROC: 0DQR0ZZ Repair Anal Sphincter, Open Approach (ICD-10-PCS; 2021-01-11)
DX: O48.0 Post-term pregnancy (principal); Z37.0 Single live birth; O70.20 Third degree perineal laceration during delivery, unspecified; Z3A.40 40 weeks gestation of pregnancy; Z88.0 Allergy status to penicillin; O99.214 Obesity complicating childbirth; E66.9 Obesity, unspecified; O13.4 Gestational [pregnancy-induced] hypertension without significant proteinuria, complicating childbirth
CPT/HCPCS: 36415; 81000; 85025; 86850; 86900; 86901; 87088

== ENCOUNTER 2021-10-28 19:02 | Emergency (ER) | payer OTHER, MEDICAID ==
[~2021-10-28] VITALS: Ht 160 cm; Wt 115.5 kg
[~2021-10-28 19:02] MED LIST changes: +IBUP-844 PO
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
[2021-10-28 21:12] VITALS: BP 126/85
== END 2021-10-28 21:15 | disposition home or self-care (01) ==
LOC: EDUNIT# 19:02 → ER 19:04
DX: S09.90XA Unspecified injury of head, initial encounter (principal); V89.2XXA Person injured in unspecified motor-vehicle accident, traffic, initial encounter
CPT/HCPCS: 99281

== ENCOUNTER 2022-05-11 18:11 | Emergency (ER) | payer OTHER, MEDICAID ==
[~2022-05-11] VITALS: Ht 160 cm; Wt 115.5 kg
[2022-05-11] MEDS ORDERED: LACTATED RINGERS 1,000 ML IV ONE (18:15)
[2022-05-11] MEDS ORDERED: IOHEXOL 350 MG/ML 100 ML (OMNIPAQUE 350) VIAL IV ONE (18:30)
[2022-05-11] MEDS ORDERED: CATHETER FLUSH 10 ML SYR IV PRN (18:30)
[2022-05-11] MEDS ORDERED: HOLD METFORMIN - RECEIVED CONTRAST 20 ML VIAL IV SCH (18:30)
[2022-05-11] MEDS ORDERED: NS 100 ML (IVPB) BAG IV ONE (18:30)
[2022-05-11 18:43] LABS: HEMATOCRIT 42 % (35-52); MEAN CORPUSCULAR HEMOGLOBIN 28 pg (25-34); WHITE BLOOD COUNT 5.8 10^3/uL (4.3-11.0)
[2022-05-11 18:44] LABS: BASOPHILS % (AUTO) 0 % (0-10); EOSINOPHILS # (AUTO) 0.3 10^3/uL (0.0-0.3); EOSINOPHILS % (AUTO) 5 % (0-10); LYMPHOCYTES # (AUTO) 2.2 X 10^3 (1.0-4.0); LYMPHOCYTES % (AUTO) 37 % (12-44); MEAN CORPUSCULAR HGB CONC 33 g/dL (32-36); MEAN CORPUSCULAR VOLUME 83 fL (80-99); MEAN PLATELET VOLUME 10.4 fL (9.0-12.2); MONOCYTES # (AUTO) 0.3 X 10^3 (0.0-1.0); MONOCYTES % (AUTO) 5 % (0-12); NEUTROPHILS % (AUTO) 52 % (42-75); PLATELET COUNT 301 10^3/uL (130-400)
[2022-05-11 18:56] LABS: PROTHROMBIN TIME PATIENT 13.2 SEC (12.2-14.7)
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
[2022-05-11] MEDS ORDERED: TETANUS,DIPTH,PERTUSS P/F (BOOSTRIX) 0.5 ML VIAL IM ONE (19:00)
[2022-05-11 19:08] LABS: CARBON DIOXIDE 21 MMOL/L (21-32); CHLORIDE 106 MMOL/L (98-107); POTASSIUM 3.8 MMOL/L (3.6-5.0); SODIUM 141 MMOL/L (135-145)
[2022-05-11 19:09] LABS: ALANINE AMINOTRANSFERASE 16 U/L (0-55); ALBUMIN 4.6 GM/DL (3.2-4.5); ALKALINE PHOSPHATASE 78 U/L (40-136); BILIRUBIN,TOTAL 0.3 MG/DL (0.1-1.0); BUN/CREATININE RATIO 14; CALCIUM 9.8 MG/DL (8.5-10.1); CREATININE SERUM 0.95 MG/DL (0.60-1.30); GFR ESTIMATED 87; GLUCOSE 98 MG/DL (70-105); TOTAL PROTEIN 7.7 GM/DL (6.4-8.2)
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
[2022-05-11] MEDS ORDERED: NAPR500T8 PO (19:30)
[2022-05-11] MEDS ORDERED: CYCL10TA25 PO (19:30)
[2022-05-11 20:27] LABS: AMPHETAMINE SCREEN, URINE NEGATIVE (NEGATIVE); BARBITURATE SCREEN URINE NEGATIVE (NEGATIVE); BENZODIAZEPINES SCREEN URINE NEGATIVE (NEGATIVE); BILIRUBIN,URINE NEGATIVE (NEGATIVE); CANNABINOID SCREEN, URINE POSITIVE (NEGATIVE); CLARITY,URINE CLEAR; COCAINE SCREEN URINE NEGATIVE (NEGATIVE); COLOR,URINE YELLOW; GLUCOSE, URINE (UA) NEGATIVE (NEGATIVE); KETONES,URINE NEGATIVE (NEGATIVE); LEUKOCYTE ESTERASE ,URINE NEGATIVE (NEGATIVE); METHADONE STAT NEGATIVE (NEGATIVE); NITRITE,URINE NEGATIVE (NEGATIVE); OPIATE SCREEN URINE NEGATIVE (NEGATIVE); OXYCODONE STAT NEGATIVE (NEGATIVE); PROPOXYPHENE STAT NEGATIVE (NEGATIVE); PROTEIN,URINE NEGATIVE (NEGATIVE); TRICYCLIC ANTIDEPRESSANTS SCRE NEGATIVE (NEGATIVE)
[2022-05-11 20:28] LABS: BACTERIA,URINE FEW /HPF; GRANULAR CASTS,URINE 0-2 /LPF; WBC,URINE 0-2 /HPF
[2022-05-11 20:32] VITALS: BP 134/98
== END 2022-05-11 20:43 | disposition home or self-care (01) ==
LOC: EDUNIT# 18:11 → ER 18:12
DX: S09.90XA Unspecified injury of head, initial encounter (principal); S16.1XXA Strain of muscle, fascia and tendon at neck level, initial encounter; S20.219A Contusion of unspecified front wall of thorax, initial encounter; S00.81XA Abrasion of other part of head, initial encounter; Z23 Encounter for immunization; V49.50XA Passenger injured in collision with unspecified motor vehicles in traffic accident, initial encounter
CPT/HCPCS: 70450; 70486; 71045; 71260; 72125; 72170; 74177; 80053; 80306; 81000; 84703; 85025; 85610; 85730; 93005; 93041; 99284; G0480; 36415; 80320; 90715

== ENCOUNTER 2022-10-07 17:59 | Emergency (ER) | payer MEDICAID ==
[~2022-10-07] VITALS: Ht 160 cm; Wt 115.0 kg
[~2022-10-07 17:59] MED LIST changes: +CYCL10TA25 PO; +NAPR500T8 PO
[2022-10-07 18:38] VITALS: BP 136/93
--- NOTE | 2022-10-07 18:40 | ED Fall/Injury ---
General Chief Complaint: Trauma-Non Activation Stated Complaint: FALL Nursing Triage Note: SEE TRIAGE NOTE Source: patient Exam Limitations: no limitations History of Present Illness Date Seen by Provider: Oct 07, 2022 Time Seen by Provider: 18:39 Initial Comments This is a well-appearing 21-year-old female who presented the ER via POV with complaints of low back pain after she fell this morning. States that she was running and slipped on the wet ground and landed backwards onto a porch hit her low back on the corner of the steps and hit her head. No cuts or lacerations. Denies any headache, nausea, vomiting. 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 No radiating pain. No paresthesias. No loss of bowel or bladder. Allergies and Home Medications Allergies Coded Allergies: Penicillins (Verified Allergy, Intermediate, RASH, 09/27/20) Patient Home Medication List Home Medication List Reviewed: Yes Cyclobenzaprine HCl (Cyclobenzaprine HCl) 10 Mg Tablet, 10 MG PO Q8H PRN for SPASMS Prescribed by: ROSIBEL SANCHEZ on 10/07/221911 Discontinued Medications Cyclobenzaprine HCl (Cyclobenzaprine HCl) 10 Mg Tablet, 10 MG PO Q8H PRN for SPASMS Discontinued Reason: No Longer Taking Prescribed by: GERARDO CRUZ on 05/11/221929 Last Action: Discontinued Ibuprofen (Ibu) 600 Mg Tablet, 600 MG PO Q6H Discontinued Reason: No Longer Taking Prescribed by: LUKAS HARPER on 01/13/21 0852 Last Action: Discontinued Naproxen (Naproxen) 500 Mg Tablet.dr, 500 MG PO BID Discontinued Reason: No Longer Taking Prescribed by: GERARDO CRUZ on 05/11/221929 Last Action: Discontinued Review of Systems Review of Systems Constitutional: see HPI Past Spggohb-Ozgkzh-Wvwvsi Hx Patient Social History Tobacco Use?: Yes Tobacco type used: Cigarettes Substance use?: No Alcohol Frequency: Once in a while Immunizations Up To Date Tetanus Booster (TDap): Less than 5yrs PED Vaccines UTD: Yes First/Initial COVID19 Vaccinat: UNKNOWN Second COVID19 Vaccination Oswald: 2020 COVID19 Vaccine Applications 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: ROBERT Seasonal Allergies Seasonal Allergies: No Past Medical History Surgeries: Yes Adenoidectomy, Tonsillectomy Respiratory: No Cardiac: No Neurological: No Last Menstrual Period: Sep 30, 2022 Reproductive Disorders: Yes Female Reproductive Disorders: Ovarian Cyst, Polycystic Ovarian Dis Sexually Transmitted Disease: No Genitourinary: No Gastrointestinal: No Musculoskeletal: No Endocrine: No HEENT: Yes (S/P T&A) Tonsilitis Cancer: No Psychosocial: Yes (NIGHTMARES) Sleep Difficulties, Anxiety, Depression Blood Disorders: No Family Medical History No Pertinent Family Hx Physical Exam Vital Signs Vital Signs - First Documented 10/07/22 18:16 Temp 36.8 Pulse 82 Resp 16 B/P (MAP) 136/93 (107) Pulse Ox 99 O2 Delivery Room Air Capillary Refill : Height, Weight, BMI Height: 5'2.00" Weight: 200lbs. oz. [id number]; 44.00 BMI Method:Stated General Appearance: WD/WN, no apparent distress HEENT: TMs normal, pharynx normal Neck: full range of motion, normal inspection Cardiovascular: regular rate, rhythm, no murmur Respiratory: lungs clear, normal breath sounds, no respiratory distress, no accessory muscle use Peripheral Pulses: 2+ Radial Pulses (R), 2+ Radial Pulses (L) Gastrointestinal: normal bowel sounds, non tender, soft Back: vertebral tenderness (Lumbar tenderness ) Extremities: normal range of motion, normal inspection Neurologic/Psychiatric: no motor/sensory deficits, alert, normal mood/affect, oriented x 3 Skin: normal color, warm/dry Lymphatic: no adenopathy Toponas Coma Score Best Eye Response: (4) Open Spontaneously Best Verbal Response: (5) Oriented Best Motor Response: (6) Obeys Commands Melissa Total: 15 Progress/Results/Core Measures Results/Orders My Orders Orders - ROSIBEL SANCHEZ APRN Lumbar Spine - 2-3 Views (10/07/22 18:37) Ketorolac Injection (Toradol Injection) (10/07/22 18:45) Orphenadrine Inj (Ed Only) (Norflex Inje (10/07/22 18:45) Medications Given in ED Current Medications Medications Dose Ordered Sig/Damian Route Start Time Stop Time Status Last Admin Dose Admin Ketorolac Tromethamine 30 mg ONCE ONCE IM 10/07/22 18:45 10/07/22 18:46 DC 10/07/22 18:46 30 MG Orphenadrine Citrate 60 mg ONCE ONCE IM 10/07/22 18:45 10/07/22 18:46 DC 10/07/22 18:47 60 MG Vital Signs/I&O 10/07/22 10/07/22 18:16 18:38 Temp 36.8 36.8 Pulse 82 82 Resp 16 16 B/P (MAP) 136/93 (107) 136/93 (107) Pulse Ox 99 99 O2 Delivery Room Air Room Air Blood Pressure Mean: 107 Departure Impression Primary Impression: Fall (on) (from) other stairs and steps, initial encounter Disposition: HOME, SELF-CARE Condition: Improved Departure-Patient Inst. Decision time for Depature: 19:11 Referrals: NO,LOCAL PHYSICIAN (PCP/Family) Primary Care Physician Patient Instructions: Minor Contusion ED Add. Discharge Instructions: Plan: 1. Rest, no heavy lifting, bending, twisting for the next 72 hours. 2. May use ice followed by heat 20 minutes at a time. 3. May take Tylenol or ibuprofen as needed for pain. 4. Take muscle relaxers every 8 hours as needed for muscle spasm and discomfort. Do not drive while taking. 5. Return to the ER for any new, concerning, worsening symptoms. All discharge instructions reviewed with patient and/or family. Voiced understanding. Scripts Cyclobenzaprine HCl (Cyclobenzaprine HCl) 10 Mg Tablet 10 MG PO Q8H PRN for SPASMS, #15 TAB 0 Refills Prov: ROSIBEL SANCHEZ APRN 10/07/22 Work/School Note: Work Release Form Date Seen in the Emergency Department: Oct 07, 2022 Return to Work: Oct 10, 2022 Restrictions: No Restrictions ROSIBEL SANCHEZ [employer] OPERATOR Oct 07, 2022 18:40
[2022-10-07] MEDS ORDERED: KETOROLAC 30 MG/ML VIAL IM ONE (18:45)
[2022-10-07] MEDS ORDERED: ORPHENADRINE 60 MG/2 ML (NORFLEX) AMP (ED ONLY) IM ONE (18:45)
--- NOTE | 2022-10-07 19:05 | Diagnostic Imaging Report ---
INDICATION: Fall with lumbar pain. EXAMINATION: AP and lateral views of the lumbar spine are obtained. FINDINGS: Examination of the lumbosacral spine fails to reveal evidence of fracture, dislocation or other bony abnormality. There is normal curvature and alignment. The vertebral bodies and the intervertebral spaces are well maintained. IMPRESSION: Negative lumbosacral spine. Dictated by: Dictated on workstation # [id number]
[2022-10-07] MEDS ORDERED: CYCL10TA25 PO (19:12)
== END 2022-10-07 19:16 | disposition home or self-care (01) ==
LOC: EDUNIT# 17:59 → ER 18:00
DX: M54.50 Low back pain, unspecified (principal); F17.210 Nicotine dependence, cigarettes, uncomplicated; Z28.311 Partially vaccinated for COVID-19; W10.8XXA Fall (on) (from) other stairs and steps, initial encounter; Y93.02 Activity, running; Y92.59 Other trade areas as the place of occurrence of the external cause; Y99.0 Civilian activity done for income or pay
CPT/HCPCS: 72100